=== PATIENT | female | born 1950 | race African-American/Black ===

== ENCOUNTER 2017-09-07 07:10 | Inpatient (IN) | payer OTHER ==
--- NOTE | 2017-09-07 07:32 | PDOC ---
History of Present Illness - General History Source: Patient <Tomas Mccallum - Last Filed: 09/07/17 10:23> - General History Source: Family, Old Records Exam Limitations: No Limitations - History of Present Illness Initial Comments: 09/07/17 13:54 The patient is a 67-year-old female living at [facility], with a significant past medical history of diabetes and stage 5 renal failure, who was sent to the ED by Dr. Barron for evaluation for worsening chronic kidney disease. Dr. Barron noted that the patient's creatnine was 10 and sent her over to the ED for dialysis and possible permcath placement. On exam, patients daughter states that she has been less active and has a decreased appetite recently. The patient was evaluated by wound care yesterday for an open wound on her left heel. The patient denies any fever, chills, nausea, vomiting, diarrhea, or abdominal pain. PCP: Dr. Rashad Charles Allergies: Penicillins Social History: Former smoker (quit 6 years ago). No reported alcohol, or drug use. Surgical History: Left Hip Surgery <Carine Dukes - Last Filed: 09/07/17 13:55> - General Chief Complaint: Revisit, Lab Variance Stated Complaint: ABNORMAL LABS Time Seen by Provider: 09/07/17 07:31 Past History - Past Medical History CVA: No (TIA) Diabetes: Yes - Surgical History Orthopedic Surgery: Yes (l hip) - Suicide/Smoking/Psychosocial Hx Smoking History: Former smoker Have you smoked in the past 12 months: No If you are a former smoker, when did you quit?: 6 YRS AGO <Tomas Mccallum - Last Filed: 09/07/17 10:23> <Carine Dukes - Last Filed: 09/07/17 13:55> - Past Medical History Allergies/Adverse Reactions: Allergies Allergy/AdvReac Type Severity Reaction Status Date / Time Penicillins Allergy Verified 09/07/17 07:27 Home Medications: Ambulatory Orders Unobtainable [Unobtainable] 09/05/17 Review of Systems - Review of Systems Able to Perform ROS?: Yes Comments:: 09/07/17 13:54 CONSTITUTIONAL: +general weakness No reported: Fever, Chills, Diaphoresis, Malaise, Loss of Appetite HEENT: No reported: Rhinorrhea, Nasal Congestion, Throat Pain, Throat Swelling, Difficulty Swallowing, Mouth Swelling, Ear Pain, Eye Pain, Visual Changes CARDIOVASCULAR: No reported: Chest Pain, Syncope, Palpitations, Irregular Heart Rate, Lightheadedness, Peripheral Edema RESPIRATORY: No reported: Cough, Shortness of Breath, SOB with Exertion, Orthopnea, Wheezing , Stridor, Hemoptysis GASTROINTESTINAL: No reported: Abdominal pain, Abdominal Distension, Nausea, Vomiting, Diarrhea, Constipation, Melena, Hematochezia GENITOURINARY: No reported: Dysuria, Frequency, Urgency, Hesitancy, Flank Pain, Genital Pain MUSCULOSKELETAL: No reported: Myalgia, Arthralgia, Joint Swelling, Back pain, Neck Pain SKIN: Reported: Wound on left heel. No reported: Rash, Itching, Pallor HEMEATOLOGIC/IMMUNOLOGIC: No reported: Easy Bleeding, Easy Bruising, Lymphadenopathy, Frequent infections ENDOCRINE: No reported: Unexplained Weight Gain, Unexplained Weight Loss, Heat Intolerance , Cold Intolerance NEUROLOGIC: No reported: Headache, Focal Weakness, Paresthesias, Vertigo, Lightheadedness, Unsteady Gait, Seizure, Mental Status Changes, Incontinence PSYCHIATRIC: No reported: Anxiety, Depression <Carine Dukes - Last Filed: 09/07/17 13:55> *Physical Exam - Vital Signs Last Vital Signs Temp Pulse Resp BP Pulse Ox 97.9 F 97 H 15 102/62 100 09/07/17 07:27 09/07/17 07:27 09/07/17 07:27 09/07/17 07:27 09/07/17 07:27 - Physical Exam Comments: 09/07/17 13:54 GENERAL: (+)Thin, Alert and Oriented x1. Nontoxic - in no acute distress. slow to respond HEAD: Normocephalic, atraumatic. EYES: extraocular movements intact, sclera anicteric, conjunctiva clear. ENT: Normal voice, Moist mucous membranes. NECK: Normal range of motion, supple LUNGS: (+)Scant rales at the bases. No wheezes, no rhonchi. HEART: Regular rate and rhythm, without murmur, rub or gallop. ABDOMEN: Soft, nontender, normoactive bowel sounds. No guarding, no rebound.No CVA tenderness EXTREMITIES: Normal range of motion, no edema. No clubbing or cyanosis. No cords, erythema, or tenderness. NEUROLOGICAL: No facial assymetry, Normal speech, PSYCH: Normal mood, normal affect. SKIN: (+)Has a left healed wound that is non-erythematous. Warm, Dry, normal turgor, <Carine Dukes - Last Filed: 09/07/17 13:55> Heart Score/ECG Review - ECG Impressions Comment:: 09/07/17 08:54 Twelve-lead EKG was performed and reviewed by me. There is normal sinus rhythm with a normal rate. Rate of 92 The intervals are normal. There are no ST or T wave abnormalities suggestive of acute ischemia <Tomas Mccallum - Last Filed: 09/07/17 10:23> ED Treatment Course - LABORATORY CBC & Chemistry Diagram: 09/07/17 07:58 09/07/17 07:58 <Tomas Mccallum - Last Filed: 09/07/17 10:23> - LABORATORY CBC & Chemistry Diagram: 09/07/17 07:58 09/07/17 07:58 - ADDITIONAL ORDERS Additional order review: Laboratory Results 09/07/17 09/07/17 08:00 07:58 PT with INR 10.10 INR 0.89 Antibody Screen Cancelled 09/07/17 07:58 RBC 3.55 L MCV 77.2 L MCHC 33.0 RDW 20.9 H MPV 7.2 L Neutrophils % 71.5 Lymphocytes % 15.9 Monocytes % 7.6 Eosinophils % 4.2 D Basophils % 0.8 - RADIOLOGY Radiology Studies Ordered: 09/07/17 08:56 Chest X-Ray was reviewed by Dr. Mccallum and over-read by Radiology. Impression: 4 mm hyperdense pulmonary nodule in the right lung apex likely representing a granuloma. However, since no prior is available for comparison, a follow-up chest x-ray in 6-12 months would be helpful for further evaluation. Otherwise, no acute lung disease is present - Medications Given in the ED: ED Medications Discontinued Medications Generic Name Dose Route Start Last Admin Trade Name Freq PRN Reason Stop Dose Admin Acetaminophen 650 mg 09/07/17 08:03 09/07/17 08:07 Tylenol - PO 09/07/17 08:04 650 mg ONCE ONE Administration <Carine Dukes - Last Filed: 09/07/17 13:55> Medical Decision Making - Medical Decision Making 09/07/17 08:23 67y F hx of htn, dm, hl, gerd, ckd, L heel wound, sent from [place] for evaluation of worsening CKD and posible permcath placement. Pts daughter mentioned the patient has been less active, less appetite recently. No associate fever/chills , n/v. history primarily provided from daugther and from [place] records. will ck labs, ekg to screen for hyperk will dw dr. barron. A portion of this note was documented by scribe services under my direction. I have reviewed the details of the note, within reason, and agree with the documentation with the following case summary and management plan written by me. 09/07/17 08:[address] barron - states pt cr is 10 requests admission and consult janeth dorantes 09/07/17 09:56 pts labs reviewed cr noted at 11, BUN at 141, probably explains pts mental status K is stable will send a VBG to screen for acidosis will need emergent dialysis will notify dr dorantes 09/07/17 10:[address] gaviria for percmath and access will admit for further management. 09/07/17 10:[address] giles agree with admissio nfor further managment Case discussed in detail with admitting physician including history, physical exam and ancillary studies. Admitting physician has assumed care for the patient, will follow all pending diagnostics and will complete the evaluation and treatment. <Tomas Mccallum - Last Filed: 09/07/17 10:23> *DC/Admit/Observation/Transfer - Discharge Dispostion Admit: Yes <Tomas Mccallum - Last Filed: 09/07/17 10:23> - Attestations Scribe Attestion: 09/07/17 08:57 Documentation prepared by Carine Dukes, acting as biomedical service engineer for Tomas Mccallum MD. <Carine Dukes - Last Filed: 09/07/17 13:55> Diagnosis at time of Disposition: Uremia Chronic kidney failure Qualifiers: Chronic kidney disease stage: unspecified stage Qualified Code(s): N18.9 - Chronic kidney disease, unspecified - Discharge Dispostion Condition at time of disposition: Guarded
[2017-09-07 07:36] VITALS: BMI 22.6
[2017-09-07] MEDS ORDERED: ACETAMINOPHEN 325 MG TABLET (FP) PO ONE (08:03)
[2017-09-07] MEDS ORDERED: ACETAMINOPHEN 325 MG TABLET (FP) ONE (08:04)
[2017-09-07 08:19] LABS: BASO % 0.8 % (0-2.0); EOS % 4.2 % (0-4.5); HEMATOCRIT 27.4 % (32.4-45.2); LYMPH % 15.9 % (8-40); MCH 25.5 pg (25.7-33.7); MEAN CELL VOLUME 77.2 fl (80-96); MEAN PLT VOLUME 7.2 fl (7.5-11.1); MONO % 7.6 % (3.8-10.2); NEUT % 71.5 % (42.8-82.8); PLATELET COUNT 204 K/MM3 (134-434); RBC 3.55 M/mm3 (3.60-5.2); RDW 20.9 % (11.6-15.6); WHITE BLOOD COUNT 6.9 K/mm3 (4.0-10.0)
[2017-09-07 08:32] LABS: INR 0.89 (0.82-1.09); PROTHROMBIN TIME (PATIENT) 10.1 SEC (9.98-11.88)
[2017-09-07 08:43] LABS: ANION GAP 9 (8-16); CALCIUM 8.8 mg/dL (8.5-10.1); CHLORIDE 117 mmol/L (98-107); CO2 12 mmol/L (21-32); MAGNESIUM 2.2 mg/dL (1.8-2.4); POTASSIUM 4.6 mmol/L (3.5-5.1); SODIUM 138 mmol/L (136-145)
[2017-09-07 08:56] LABS: ALK PHOS 103 U/L (45-117); BILIRUBIN,TOTAL 0.4 mg/dL (0.2-1.0); GLUCOSE,RANDOM 123 mg/dL (74-106); PHOSPHOROUS 6.4 mg/dL (2.5-4.9); SGOT/AST 16 U/L (15-37); SGPT/ALT 22 U/L (12-78); TOT PROT 6.4 g/dl (6.4-8.2)
[2017-09-07 09:07] LABS: BLOOD UREA NITROGEN 141 mg/dL (7-18); CREATININE 11.1 mg/dL (0.55-1.02)
[2017-09-07] MEDS ORDERED: morphine CARPU-JECT 2 MG/1 ML DISP.SYRIN IVPUSH ONE (10:18)
[2017-09-07] MEDS ORDERED: morphine SULFATE 4 MG/ML VIAL ONE (10:20)
[2017-09-07] MEDS ORDERED: ONDANSETRON 4 MG/2 ML VIAL IVPUSH PRN ×2 (10:48→19:00)
[2017-09-07] MEDS ORDERED: ACETAMINOPHEN 325 MG TABLET (FP) PO PRN ×2 (10:48→19:00)
[2017-09-07] MEDS ORDERED: INSULIN SLIDING SCALE (NOVOLOG) 1 VIAL SQ SCH (11:00)
--- NOTE | 2017-09-07 11:04 | HP ---
Admitting History and Physical - Primary Care Physician PCP: Rashad Charles - Admission Chief Complaint: Unable to obtain History of Present Illness: Ms Medina Monday is a 67 year old female who was sent in from [facility] for HD. Daughter at bedside and giving history. She states that in her normal state of health, Ms Medina Monday is able to converse and have appropriate conversations. Over the past two weeks has become less verbal and lethargic. Was being followed as an outpatient as has history of stage5 CKD, family at that time was holding off of HD. However patient currently non-verbal and was found to have a BUN in the 100s and was sent in for HD. 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 Cardiovascular: Yes: CAD, HTN, Other (endocarditis) Gastrointestinal: Yes: GERD Renal/: Yes: Renal Failure Heme/Onc: Yes: Anemia Endocrine: Yes: Diabetes Mellitus - Past Surgical History Past Surgical History: Yes: Joint Replacement - Smoking History Smoking history: Former smoker Have you smoked in the past 12 months: No If you are a former smoker, when did you quit?: 6 YRS AGO - Alcohol/Substance Use Hx Alcohol Use: No History of Substance Use: reports: None - Social History Usual Living Arrangement: Yes: [facility] ADL: Support Services History of Recent Travel: No Home Medications - Allergies Allergies/Adverse Reactions: Allergies Allergy/AdvReac Type Severity Reaction Status Date / Time Penicillins Allergy Verified 09/07/17 07:27 - Home Medications Home Medications: Ambulatory Orders Unobtainable [Unobtainable] 09/05/17 Home Medications (free text): Med list from [facility] reviewed and ordered, refer to order sets Family Disease History - Family Disease History Family Disease History: Diabetes: Mother Review of Systems Unable to obtain ROS, reason: clinical condition Physical Examination Vital Signs: Vital Signs Temperature 36.6 C 09/07/17 07:27 Pulse Rate 97 H 09/07/17 07:27 Respiratory Rate 15 09/07/17 07:27 Blood Pressure 102/62 09/07/17 07:27 O2 Sat by Pulse Oximetry (%) 100 09/07/17 07:27 Constitutional: Yes: Well Nourished, No Distress, Calm, Other (slightly lethargic) Eyes: Yes: Conjunctiva Clear, PERRL HENT: Yes: Atraumatic, Normocephalic Cardiovascular: Yes: Regular Rate and Rhythm. No: Gallop, Murmur, Rub Respiratory: Yes: Regular, CTA Bilaterally. No: Rales, Rhonchi, Wheezes Gastrointestinal: Yes: Normal Bowel Sounds, Soft. No: Distention, Tenderness Extremities: Yes: Other (ulcer on foot) Edema: No Labs: CBC, BMP 09/07/17 07:58 09/07/17 07:58 Imaging - Results Chest X-ray: Report Reviewed, Image Reviewed Problem List - Problems (1) ESRD (end stage renal disease) Assessment/Plan: -case d/w Dr Barron -admit to med/surg -permacath placement -begin HD after placement Code(s): N18.6 - END STAGE RENAL DISEASE (2) Metabolic encephalopathy Assessment/Plan: -secondary to uremia -monitor for improvement after HD Code(s): G93.41 - METABOLIC ENCEPHALOPATHY (3) HTN (hypertension) Assessment/Plan: -continue hydralazine, clonidine patch, labetolol, and norvasc Code(s): I10 - ESSENTIAL (PRIMARY) HYPERTENSION (4) Diabetes Assessment/Plan: -diabetic diet after catheter placement -continue januvia -FSBS and SSI Code(s): E11.9 - TYPE 2 DIABETES MELLITUS WITHOUT COMPLICATIONS (5) History of CVA (cerebrovascular accident) Assessment/Plan: -continue plavix Code(s): Z86.73 - PRSNL HX OF TIA (TIA), AND CEREB INFRC W/O RESID DEFICITS (6) CAD (coronary artery disease) Assessment/Plan: -quiescent -continue home regimen Code(s): I25.10 - ATHSCL HEART DISEASE OF [place] CORONARY ARTERY W/O ANG PCTRS (7) Anemia Assessment/Plan: -monitor -no need for transfusion -continue iron Code(s): D64.9 - ANEMIA, UNSPECIFIED Qualifiers: Anemia type: due to chronic kidney disease Chronic kidney disease stage: on chronic dialysis Qualified Code(s): N18.6 - End stage renal disease; D63.1 - Anemia in chronic kidney disease; D63.1 - Anemia in chronic kidney disease; Z99.2 - Dependence on renal dialysis; Z99.2 - Dependence on renal dialysis; Z99.2 - Dependence on renal dialysis; Z99.2 - Dependence on renal dialysis (8) History of endocarditis Assessment/Plan: -will check blood cultures Code(s): Z86.79 - PERSONAL HISTORY OF OTHER DISEASES OF THE CIRCULATORY SYSTEM
--- NOTE | 2017-09-07 11:11 | EKG ---
Test Reason : Blood Pressure : / mmHG Vent. Rate : 092 BPM Atrial Rate : 092 BPM P-R Int : 158 ms QRS Dur : 088 ms QT Int : 368 ms P-R-T Axes : 075 -17 079 degrees QTc Int : 455 ms NORMAL SINUS RHYTHM SEPTAL INFARCT , AGE UNDETERMINED ABNORMAL ECG NO PREVIOUS ECGS AVAILABLE Confirmed by MADDY CRISTOBAL, ANA MARIA ([id number]) on 09/07/2017 11:11:10 AM Referred By: Confirmed By:ANA MARIA CASTAÑEDA MD
[2017-09-07 12:50] LABS: ARTERIAL BLD GAS O2 SATURATION 96.6 % (90-98.9); ARTERIAL BLOOD GAS BASE EXCESS -12.4 meq/l (-2-2); ARTERIAL BLOOD GAS PCO2 30.8 mmHg (35-45); ARTERIAL BLOOD GAS PO2 92.6 mmHg (80-100); ARTERIAL BLOOD GAS pH 7.26 (7.35-7.45)
[2017-09-07 12:53] LABS: ALLENS TEST POSITIVE
[2017-09-07] MEDS ORDERED: LIDOCAINE HCL 1%, 10 MG/ML (20ML VIAL) ONE (14:21)
--- NOTE | 2017-09-07 15:23 | CONSULT ---
Consult Consult Specialty:: Nephrology Reason for Consultation:: CKD - History of Present Illness Chief Complaint: sent in for HD History of Present Illness: Pt is a 67 year old female with pmhx of CKD, TIA, anemia, UTI and DM who I sent in to the ER to start HD. She has history of CKD and her renal function has been getting worse. She did see me in the office on several occasions and we discussed HD. She denies shortness of breath. She does have decreased appetite and has been increasingly tired lately. She denies fevers or chills. She denies chest pain or palpitations. 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 Cardio/Vascular: Yes: HTN Renal/: Yes: Renal Inusuff Infectious Disease: Yes: Other (uti) - Alcohol/Substance Use Hx Alcohol Use: No - Smoking History Smoking history: Former smoker Have you smoked in the past 12 months: No If you are a former smoker, when did you quit?: 6 YRS AGO Home Medications - Allergies Allergies/Adverse Reactions: Allergies Allergy/AdvReac Type Severity Reaction Status Date / Time Penicillins Allergy Verified 09/07/17 07:27 - Home Medications Home Medications: Ambulatory Orders Unobtainable [Unobtainable] 09/05/17 Family Disease History - Family Disease History Family History: Denies Review of Systems - Review of Systems Constitutional: reports: Malaise. denies: Chills, Fever Eyes: reports: No Symptoms HENT: reports: No Symptoms Neck: reports: No Symptoms Cardiovascular: reports: No Symptoms Respiratory: reports: No Symptoms Gastrointestinal: reports: No Symptoms Genitourinary: reports: No Symptoms Integumentary: reports: No Symptoms Neurological: reports: No Symptoms Endocrine: reports: No Symptoms Hematology/Lymphatic: reports: No Symptoms Psychiatric: reports: No Symptoms Physical Exam Vital Signs: Vital Signs Temperature 97.9 F 09/07/17 13:50 Pulse Rate 92 H 09/07/17 13:50 Respiratory Rate 18 09/07/17 13:50 Blood Pressure 140/71 09/07/17 13:50 O2 Sat by Pulse Oximetry (%) 100 09/07/17 13:50 Constitutional: Yes: Calm Eyes: Yes: Conjunctiva Clear HENT: Yes: Atraumatic Cardiovascular: Yes: S1, S2 Respiratory: Yes: CTA Bilaterally Gastrointestinal: Yes: Soft Renal/: Yes: Incontinence Musculoskeletal: Yes: Muscle Weakness Edema: No Neurological: Yes: Other (drowsy) Labs: CBC, BMP 09/07/17 07:58 09/07/17 07:58 Laboratory Tests 09/07/17 09/07/17 09/07/17 07:58 07:58 12:35 WBC 6.9 Hgb 9.0 L Plt Count 204 ABG pH 7.26 L ABG pCO2 at Pt Temp 30.8 L ABG pO2 at Pt Temp 92.6 ABG HCO3 13.3 L* ABG O2 Sat (Measured) 96.6 Sodium 138 Potassium 4.6 Chloride 117 H Carbon Dioxide 12 L Anion Gap 9 BUN 141 H* Creatinine 11.1 H* Creat Clearance w eGFR 3.44 Phosphorus 6.4 H Imaging - Results Chest X-ray: Report Reviewed Problem List - Problems (1) Chronic kidney failure Code(s): N18.9 - CHRONIC KIDNEY DISEASE, UNSPECIFIED Qualifiers: Chronic kidney disease stage: unspecified stage Qualified Code(s): N18.9 - Chronic kidney disease, unspecified (2) Uremia Code(s): N19 - UNSPECIFIED KIDNEY FAILURE Assessment/Plan Current Medications Generic Name Dose Route Start Last Admin Trade Name Freq PRN Reason Stop Dose Admin Acetaminophen 650 mg 09/07/17 10:48 Tylenol - PO Q4H PRN PAIN LEVEL 1-5 Amlodipine Besylate 10 mg 09/08/17 10:00 Norvasc - PO DAILY [facility] Ascorbic Acid 500 mg 09/07/17 22:00 Vitamin C - PO BID [facility] Atorvastatin Calcium 20 mg 09/07/17 22:00 Lipitor - PO HS RY Clonidine HCl 0.2 mg 09/14/17 10:00 Catapres Tts Patch - TD Q7D@1000 RY Clopidogrel Bisulfate 75 mg 09/08/17 10:00 Plavix - PO DAILY RY Cyanocobalamin 1,000 mcg 09/08/17 10:00 Vitamin B12 - PO DAILY RY Donepezil HCl 5 mg 09/07/17 22:00 Aricept - PO BID RY Ferrous Sulfate 325 mg 09/07/17 17:30 Feosol - PO BIDWM RY Fluticasone Propionate 2 spray 09/08/17 10:00 Flonase - NS DAILY RY Folic Acid 1 mg 09/08/17 10:00 Folic Acid - PO DAILY [facility] Heparin Sodium (Porcine) 5,000 unit 09/07/17 22:00 Heparin - SQ BID [facility] Hydralazine HCl 50 mg 09/07/17 22:00 Apresoline - PO TID [facility] Insulin Aspart 1 vial 09/07/17 11:00 09/07/17 12:11 Novolog Vial Sliding Scale - SQ Not Given ACHS [facility] Protocol Labetalol HCl 400 mg 09/07/17 22:00 Normodyne - PO TID [facility] Multivit/Ca Carb/B Cmplx/FA/Prenat 1 tablet 09/08/17 10:00 Nephro-Don - PO DAILY [facility] Ondansetron HCl 4 mg 09/07/17 10:48 Zofran Injection IVPUSH Q6H PRN NAUSEA Sitagliptin Phosphate 50 mg 09/08/17 07:00 Januvia - PO DAILY@0700 [facility] Impression 1. CKD 2. uremia 3. anemia 4. HTN 5. HLD 6. DM 7. hx endocarditis 8. GERD Plan - called vascular for permacath - pt will also need an AV fistula - can get vein mapping - will arrange for HD after permacath, likely tomorrow morning - will follow Dr Barron
[2017-09-07] MEDS ORDERED: SODIUM CHLORIDE 250 ML IV PRN ×2 (15:40→19:00)
[2017-09-07] MEDS ORDERED: FERROUS SO4 325 MG TABLET (FP) PO SCH (17:30)
[2017-09-07] MEDS ORDERED: MIDAZOLAM HCL 2 MG/2 ML SINGLE DOSE VIAL ONE (18:05)
[2017-09-07] MEDS ORDERED: CLINDAMYCIN PHOSPHATE 600 MG/4 ML VIAL ONE (18:11)
[2017-09-07] MEDS ORDERED: CLINDAMYCIN 300 MG PREMIX BAG IVPB ONE (18:14)
[2017-09-07] MEDS ORDERED: LIDOCAINE HCL 1%, 10 MG/ML (20ML VIAL) PNB ONE ×2 (18:14→18:18)
--- NOTE | 2017-09-07 18:37 | OP ---
Operative Note - Note: Operative Date: 09/07/17 Pre-Operative Diagnosis: ESRD Operation: Placement Permacath Findings: Patent left IJ Implants: 23 cm Permacath Post-Operative Diagnosis: Same as Pre-op Surgeon: Buck Crane Anesthesiologist/TUMBLER DYEING MACHINE OPERATOR: Migule Hua Anesthesia: Fractional
--- NOTE | 2017-09-07 18:39 | CONSULT ---
Consult - History of Present Illness History of Present Illness: 67 year old woman with CKD 5 who now needs to start dialysis. She was evaluated in the past for AV access but family decided to wait. She is left handed. 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 Cardio/Vascular: Yes: CAD, HTN, Other (endocarditis) Gastrointestinal: Yes: GERD Renal/: Yes: Renal Failure Infectious Disease: Yes: Other (uti) Endocrine: Yes: Diabetes Mellitus - Past Surgical History Past Surgical History: Yes: Joint Replacement - Alcohol/Substance Use Hx Alcohol Use: No History of Substance Use: reports: None - Smoking History Smoking history: Former smoker Have you smoked in the past 12 months: No If you are a former smoker, when did you quit?: 6 YRS AGO - Social History ADL: Support Services History of Recent Travel: No Home Medications - Allergies Allergies/Adverse Reactions: Allergies Allergy/AdvReac Type Severity Reaction Status Date / Time Penicillins Allergy Verified 09/07/17 07:27 - Home Medications Home Medications: Ambulatory Orders Unobtainable [Unobtainable] 09/05/17 Family Disease History - Family Disease History Family Disease History: Diabetes: Mother Physical Exam Vital Signs: Vital Signs Temperature 97.9 F 09/07/17 13:50 Pulse Rate 92 H 09/07/17 13:50 Respiratory Rate 18 09/07/17 13:50 Blood Pressure 140/71 09/07/17 13:50 O2 Sat by Pulse Oximetry (%) 100 09/07/17 13:50 Constitutional: Yes: Calm Eyes: Yes: WNL HENT: Yes: WNL Neck: Yes: Supple Cardiovascular: Yes: Regular Rate and Rhythm Respiratory: Yes: Regular Gastrointestinal: Yes: Soft Extremities: Yes: Other (No visible vein in arm) Edema: No Labs: CBC, BMP 09/07/17 07:58 09/07/17 07:58 Problem List - Problems (1) Chronic kidney failure Assessment/Plan: Will place Permacath today. Plan for AV access in right arm next week. Code(s): N18.9 - CHRONIC KIDNEY DISEASE, UNSPECIFIED Qualifiers: Chronic kidney disease stage: unspecified stage Qualified Code(s): N18.9 - Chronic kidney disease, unspecified
--- NOTE | 2017-09-07 19:51 | SPEC ---
DATE OF OPERATION: OPERATION: Insertion of left-sided Perma-Cath placement PREOPERATIVE DIAGNOSIS: POSTOPERATIVE DIAGNOSIS: SURGEON: Jose Sandra M.D. ANESTHESIOLOGIST: Miguel Hua D.O. ANESTHESIA: Fractional PROCEDURE: Following intravenous sedation, the patient was placed in the Trendelenburg position. The neck and chest were prepped with Betadine solution. 1% Xylocaine was infiltrated subcutaneously in the neck and the internal jugular vein cannulated with a fine needle. A fine flexible wire was passed proximally under fluoroscopic guidance into the superior vena cava. The tract around the wire was dilated and the wire was exchanged for a larger diameter wire. Additional Xylocaine was infiltrated on the chest wall and a stab wound made beneath the clavicle. With the aid of a tunneler, the catheter was passed from chest to neck to exit next the wire. The tract around the wire was again dilated and the introducer placed into the superior vena cava. The wire and the dilator were removed. The Perma-Cath was then passed through the introducer and the tips positioned in the right atrium. The introducer was peeled away, leaving the catheter in place. Each lumen was aspirated for blood and flushed with saline and Heparin solution. The neck wound was closed with a subcuticular suture of 4-0 Vicryl and the catheter was sutured to the skin at the exit site with 3-0 Nylon. Sterile dressings were applied and the patient was taken to the recovery room for a chest x-ray. JOSE SANDRA M.D. [id number]
[2017-09-07] MEDS: ATORVASTATIN CA 20 MG TABLET (FP) PO SCH (21:29)
[2017-09-07] MEDS: ASCORBIC ACID 500 MG TABLET (FP) PO SCH (21:29)
[2017-09-07] MEDS: DONEPEZIL HCL 5 MG TABLET (FP) PO SCH (21:29)
[2017-09-07] MEDS: hydrALAZINE HCL 50 MG TABLET (FP) PO SCH (21:29)
[2017-09-07] MEDS: HEPARIN NA (PORCINE) 5,000 UNITS/ML 1ML VIAL SQ SCH (21:29)
[2017-09-07] MEDS: LABETALOL HCL 200 MG TABLET (FP) PO SCH (21:30)
[2017-09-07] MEDS: INSULIN SLIDING SCALE (NOVOLOG) 1 VIAL SQ SCH (21:30)
[2017-09-07] MEDS ORDERED: HEPARIN NA (PORCINE) 5,000 UNITS/ML 1ML VIAL SQ SCH (22:00)
[2017-09-07] MEDS ORDERED: ASCORBIC ACID 500 MG TABLET (FP) PO SCH (22:00)
[2017-09-07] MEDS ORDERED: DONEPEZIL HCL 5 MG TABLET (FP) PO SCH (22:00)
[2017-09-07] MEDS ORDERED: ATORVASTATIN CA 20 MG TABLET (FP) PO SCH (22:00)
[2017-09-07] MEDS ORDERED: hydrALAZINE HCL 50 MG TABLET (FP) PO SCH (22:00)
[2017-09-07] MEDS ORDERED: LABETALOL HCL 200 MG TABLET (FP) PO SCH (22:00)
[2017-09-08] MEDS: INSULIN SLIDING SCALE (NOVOLOG) 1 VIAL SQ SCH ×4 (06:12→21:14)
[2017-09-08] MEDS: sitaGLIPtin PHOSPHATE 25 MG TABLET (FP) PO SCH (06:13)
[2017-09-08] MEDS: LABETALOL HCL 200 MG TABLET (FP) PO SCH ×3 (06:13→21:08)
[2017-09-08] MEDS: hydrALAZINE HCL 50 MG TABLET (FP) PO SCH ×3 (06:13→21:08)
[2017-09-08] MEDS ORDERED: sitaGLIPtin PHOSPHATE 25 MG TABLET (FP) PO SCH (07:00)
[2017-09-08 07:55] LABS: BASO % 0.6 % (0-2.0); EOS % 3.4 % (0-4.5); HEMATOCRIT 26.3 % (32.4-45.2); HEMOGLOBIN 8.7 GM/dL (10.7-15.3); LYMPH % 15.4 % (8-40); MCH 25.5 pg (25.7-33.7); MCHC 33.1 g/dl (32.0-36.0); MEAN CELL VOLUME 77.1 fl (80-96); MEAN PLT VOLUME 7.2 fl (7.5-11.1); MONO % 6.7 % (3.8-10.2); NEUT % 73.9 % (42.8-82.8); PLATELET COUNT 192 K/MM3 (134-434); RBC 3.41 M/mm3 (3.60-5.2); RDW 20.9 % (11.6-15.6); WHITE BLOOD COUNT 6.9 K/mm3 (4.0-10.0)
[2017-09-08 08:55] LABS: CHLORIDE 118 mmol/L (98-107); POTASSIUM 4.8 mmol/L (3.5-5.1); SODIUM 138 mmol/L (136-145)
[2017-09-08 09:13] LABS: ANION GAP 8 (8-16); CALCIUM 8.6 mg/dL (8.5-10.1); CO2 12 mmol/L (21-32); GLUCOSE,RANDOM 84 mg/dL (74-106); MAGNESIUM 2.4 mg/dL (1.8-2.4); PHOSPHOROUS 6.8 mg/dL (2.5-4.9)
[2017-09-08] MEDS: FERROUS SO4 325 MG TABLET (FP) PO SCH ×2 (09:13→18:00)
[2017-09-08 09:52] LABS: BLOOD UREA NITROGEN 137 mg/dL (7-18); CREATININE 11.7 mg/dL (0.55-1.02)
[2017-09-08] MEDS ORDERED: amLODIPine BESYLATE 10 MG TABLET (FP) PO SCH (10:00)
[2017-09-08] MEDS ORDERED: FOLIC ACID 1 MG TABLET (FP) PO SCH (10:00)
[2017-09-08] MEDS ORDERED: CYANOCOBALAMIN 1,000 MCG TABLET (FP) PO SCH (10:00)
[2017-09-08] MEDS ORDERED: FLUTICASONE PROP 0.05% 16 GM NASAL SPRAY NS SCH (10:00)
[2017-09-08] MEDS ORDERED: VITAMIN B COMP W-C 1 EA TABLET PO SCH (10:00)
[2017-09-08] MEDS ORDERED: CLOPIDOGREL BISULFATE 75 MG TABLET (FP) PO SCH (10:00)
[2017-09-08] MEDS ORDERED: SODIUM CHLORIDE 250 ML IV SCH (12:00)
[2017-09-08] MEDS: amLODIPine BESYLATE 10 MG TABLET (FP) PO SCH (12:01)
[2017-09-08] MEDS: FOLIC ACID 1 MG TABLET (FP) PO SCH (12:01)
[2017-09-08] MEDS: CLOPIDOGREL BISULFATE 75 MG TABLET (FP) PO SCH (12:02)
[2017-09-08] MEDS: CYANOCOBALAMIN 1,000 MCG TABLET (FP) PO SCH (12:02)
[2017-09-08] MEDS: ASCORBIC ACID 500 MG TABLET (FP) PO SCH ×2 (12:02→21:09)
[2017-09-08] MEDS: VITAMIN B COMP W-C 1 EA TABLET PO SCH (12:02)
[2017-09-08] MEDS: DONEPEZIL HCL 5 MG TABLET (FP) PO SCH ×2 (12:02→21:08)
[2017-09-08] MEDS: HEPARIN NA (PORCINE) 5,000 UNITS/ML 1ML VIAL SQ SCH ×2 (12:03→21:15)
[2017-09-08] MEDS: FLUTICASONE PROP 0.05% 16 GM NASAL SPRAY NS SCH (12:03)
--- NOTE | 2017-09-08 13:11 | PN ---
Progress Note, Physician Chief Complaint: Ms Medina Monday is without complaint. No cp, sob, n/v. - Current Medication List Current Medications: Active Medications Acetaminophen (Tylenol -) 650 mg PO Q4H PRN PRN Reason: PAIN LEVEL 1-5 Amlodipine Besylate (Norvasc -) 10 mg PO DAILY [facility] Last Admin: 09/08/17 12:01 Dose: 10 mg Ascorbic Acid (Vitamin C -) 500 mg PO BID [facility] Last Admin: 09/08/17 12:02 Dose: 500 mg Atorvastatin Calcium (Lipitor -) 20 mg PO HS [facility] Last Admin: 09/07/17 21:29 Dose: 20 mg Clonidine HCl (Catapres Tts Patch -) 0.2 mg TD Q7D@1000 [facility] Clopidogrel Bisulfate (Plavix -) 75 mg PO DAILY [facility] Last Admin: 09/08/17 12:02 Dose: 75 mg Cyanocobalamin (Vitamin B12 -) 1,000 mcg PO DAILY [facility] Last Admin: 09/08/17 12:02 Dose: 1,000 mcg Donepezil HCl (Aricept -) 5 mg PO BID [facility] Last Admin: 09/08/17 12:02 Dose: 5 mg Ferrous Sulfate (Feosol -) 325 mg PO BIDWM [facility] Last Admin: 09/08/17 09:13 Dose: Not Given Fluticasone Propionate (Flonase -) 2 spray NS DAILY [facility] Last Admin: 09/08/17 12:03 Dose: Not Given Folic Acid (Folic Acid -) 1 mg PO DAILY [facility] Last Admin: 09/08/17 12:01 Dose: 1 mg Heparin Sodium (Porcine) (Heparin -) 5,000 unit SQ BID [facility] Last Admin: 09/08/17 12:03 Dose: 5,000 unit Hydralazine HCl (Apresoline -) 50 mg PO TID [facility] Last Admin: 09/08/17 06:13 Dose: 50 mg Sodium Chloride (Normal Saline -) 250 mls @ 3,000 mls/hr IV PRN PRN PRN Reason: Hypotension during Dialysis Stop: 09/08/17 15:40 Insulin Aspart (Novolog Vial Sliding Scale -) 1 vial SQ ACHS [facility] PRN Reason: Protocol Last Admin: 09/08/17 12:02 Dose: Not Given Labetalol HCl (Normodyne -) 400 mg PO TID [facility] Last Admin: 09/08/17 06:13 Dose: 400 mg Multivit/Ca Carb/B Cmplx/FA/Prenat (Nephro-Don -) 1 tablet PO DAILY [facility] Last Admin: 09/08/17 12:02 Dose: 1 tablet Ondansetron HCl (Zofran Injection) 4 mg IVPUSH Q6H PRN PRN Reason: NAUSEA Sitagliptin Phosphate (Januvia -) 25 mg PO DAILY@0700 [facility] Last Admin: 09/08/17 06:13 Dose: 25 mg - Objective Vital Signs: Vital Signs Temperature 36.4 C L 09/08/17 07:55 Pulse Rate 110 H 09/08/17 11:22 Respiratory Rate 20 09/08/17 10:36 Blood Pressure 107/67 09/08/17 10:36 O2 Sat by Pulse Oximetry (%) 95 09/07/17 21:00 Constitutional: Yes: Well Nourished, No Distress, Calm Cardiovascular: Yes: Regular Rate and Rhythm. No: Gallop, Murmur, Rub Respiratory: Yes: Regular, CTA Bilaterally. No: Rales, Rhonchi, Wheezes Gastrointestinal: Yes: Normal Bowel Sounds, Soft. No: Distention, Tenderness Extremities: Yes: WNL Edema: No Labs: CBC, BMP 09/08/17 06:30 09/08/17 07:00 INR, PTT INR 0.89 (0.82-1.09) 09/07/17 07:58 Problem List - Problems (1) ESRD (end stage renal disease) Code(s): N18.6 - END STAGE RENAL DISEASE (2) Metabolic encephalopathy Code(s): G93.41 - METABOLIC ENCEPHALOPATHY (3) HTN (hypertension) Code(s): I10 - ESSENTIAL (PRIMARY) HYPERTENSION (4) Diabetes Code(s): E11.9 - TYPE 2 DIABETES MELLITUS WITHOUT COMPLICATIONS (5) History of CVA (cerebrovascular accident) Code(s): Z86.73 - PRSNL HX OF TIA (TIA), AND CEREB INFRC W/O RESID DEFICITS (6) CAD (coronary artery disease) Code(s): I25.10 - ATHSCL HEART DISEASE OF [place] CORONARY ARTERY W/O ANG PCTRS (7) Anemia Code(s): D64.9 - ANEMIA, UNSPECIFIED Qualifiers: Anemia type: due to chronic kidney disease Chronic kidney disease stage: on chronic dialysis Qualified Code(s): N18.6 - End stage renal disease; D63.1 - Anemia in chronic kidney disease; D63.1 - Anemia in chronic kidney disease; Z99.2 - Dependence on renal dialysis; Z99.2 - Dependence on renal dialysis; Z99.2 - Dependence on renal dialysis; Z99.2 - Dependence on renal dialysis (8) History of endocarditis Code(s): Z86.79 - PERSONAL HISTORY OF OTHER DISEASES OF THE CIRCULATORY SYSTEM Assessment/Plan (1) ESRD (end stage renal disease) Assessment/Plan: -case d/w Dr Barron -s/p HD and tolerated well -Dr Barron to set up outpatient HD Code(s): N18.6 - END STAGE RENAL DISEASE (2) Metabolic encephalopathy Assessment/Plan: -secondary to uremia -improved today after HD Code(s): G93.41 - METABOLIC ENCEPHALOPATHY (3) HTN (hypertension) Assessment/Plan: -continue hydralazine, clonidine patch, labetolol, and norvasc -may need to de-escalate secondary to starting HD Code(s): I10 - ESSENTIAL (PRIMARY) HYPERTENSION (4) Diabetes Assessment/Plan: -diabetic diet after catheter placement -continue januvia, renally dosed -FSBS and SSI Code(s): E11.9 - TYPE 2 DIABETES MELLITUS WITHOUT COMPLICATIONS (5) History of CVA (cerebrovascular accident) Assessment/Plan: -continue plavix Code(s): Z86.73 - PRSNL HX OF TIA (TIA), AND CEREB INFRC W/O RESID DEFICITS (6) CAD (coronary artery disease) Assessment/Plan: -quiescent -continue home regimen Code(s): I25.10 - ATHSCL HEART DISEASE OF [place] CORONARY ARTERY W/O ANG PCTRS (7) Anemia Assessment/Plan: -monitor -no need for transfusion -continue iron Code(s): D64.9 - ANEMIA, UNSPECIFIED Qualifiers: Anemia type: due to chronic kidney disease Chronic kidney disease stage: on chronic dialysis Qualified Code(s): N18.6 - End stage renal disease; D63.1 - Anemia in chronic kidney disease; D63.1 - Anemia in chronic kidney disease; Z99.2 - Dependence on renal dialysis; Z99.2 - Dependence on renal dialysis; Z99.2 - Dependence on renal dialysis; Z99.2 - Dependence on renal dialysis (8) History of endocarditis Assessment/Plan: -will check blood cultures, currently [facility] Code(s): Z86.79 - PERSONAL HISTORY OF OTHER DISEASES OF THE CIRCULATORY SYSTEM
[2017-09-08] MEDS ORDERED: SODIUM CHLORIDE 250 ML IV PRN (15:47)
--- NOTE | 2017-09-08 15:47 | PN ---
Progress Note, Physician History of Present Illness: Pt seen and examined at bedside. She tolerated HD today. She is awake and appears comfortable. - Current Medication List Current Medications: Active Medications Acetaminophen (Tylenol -) 650 mg PO Q4H PRN PRN Reason: PAIN LEVEL 1-5 Amlodipine Besylate (Norvasc -) 10 mg PO DAILY [facility] Last Admin: 09/08/17 12:01 Dose: 10 mg Ascorbic Acid (Vitamin C -) 500 mg PO BID [facility] Last Admin: 09/08/17 12:02 Dose: 500 mg Atorvastatin Calcium (Lipitor -) 20 mg PO HS [facility] Last Admin: 09/07/17 21:29 Dose: 20 mg Clonidine HCl (Catapres Tts Patch -) 0.2 mg TD Q7D@1000 [facility] Clopidogrel Bisulfate (Plavix -) 75 mg PO DAILY [facility] Last Admin: 09/08/17 12:02 Dose: 75 mg Cyanocobalamin (Vitamin B12 -) 1,000 mcg PO DAILY [facility] Last Admin: 09/08/17 12:02 Dose: 1,000 mcg Donepezil HCl (Aricept -) 5 mg PO BID [facility] Last Admin: 09/08/17 12:02 Dose: 5 mg Ferrous Sulfate (Feosol -) 325 mg PO BIDWM [facility] Last Admin: 09/08/17 09:13 Dose: Not Given Fluticasone Propionate (Flonase -) 2 spray NS DAILY [facility] Last Admin: 09/08/17 12:03 Dose: Not Given Folic Acid (Folic Acid -) 1 mg PO DAILY [facility] Last Admin: 09/08/17 12:01 Dose: 1 mg Heparin Sodium (Porcine) (Heparin -) 5,000 unit SQ BID [facility] Last Admin: 09/08/17 12:03 Dose: 5,000 unit Hydralazine HCl (Apresoline -) 50 mg PO TID [facility] Last Admin: 09/08/17 06:13 Dose: 50 mg Insulin Aspart (Novolog Vial Sliding Scale -) 1 vial SQ ACHS [facility] PRN Reason: Protocol Last Admin: 09/08/17 12:02 Dose: Not Given Labetalol HCl (Normodyne -) 400 mg PO TID [facility] Last Admin: 09/08/17 06:13 Dose: 400 mg Multivit/Ca Carb/B Cmplx/FA/Prenat (Nephro-Don -) 1 tablet PO DAILY [facility] Last Admin: 09/08/17 12:02 Dose: 1 tablet Ondansetron HCl (Zofran Injection) 4 mg IVPUSH Q6H PRN PRN Reason: NAUSEA Sitagliptin Phosphate (Januvia -) 25 mg PO DAILY@0700 [facility] Last Admin: 09/08/17 06:13 Dose: 25 mg - Objective Vital Signs: Vital Signs Temperature 98.2 F 09/08/17 13:09 Pulse Rate 111 H 09/08/17 13:49 Respiratory Rate 18 09/08/17 13:09 Blood Pressure 103/62 09/08/17 13:09 O2 Sat by Pulse Oximetry (%) 100 09/08/17 09:00 Constitutional: Yes: Calm Eyes: Yes: Conjunctiva Clear HENT: Yes: Atraumatic Cardiovascular: Yes: S1, S2 Respiratory: Yes: CTA Bilaterally Gastrointestinal: Yes: Normal Bowel Sounds, Soft Genitourinary: Yes: Incontinence Musculoskeletal: Yes: WNL Edema: No Neurological: Yes: Oriented Psychiatric: Yes: Oriented Labs: CBC, BMP 09/08/17 06:30 09/08/17 07:00 INR, PTT INR 0.89 (0.82-1.09) 09/07/17 07:58 - ....Imaging Chest X-ray: Report Reviewed Problem List - Problems (1) Chronic kidney failure Code(s): N18.9 - CHRONIC KIDNEY DISEASE, UNSPECIFIED Qualifiers: Chronic kidney disease stage: unspecified stage Qualified Code(s): N18.9 - Chronic kidney disease, unspecified (2) Uremia Code(s): N19 - UNSPECIFIED KIDNEY FAILURE Assessment/Plan Current Medications Generic Name Dose Route Start Last Admin Trade Name Freq PRN Reason Stop Dose Admin Acetaminophen 650 mg 09/07/17 19:00 Tylenol - PO Q4H PRN PAIN LEVEL 1-5 Amlodipine Besylate 10 mg 09/08/17 10:00 09/08/17 12:01 Norvasc - PO 10 mg DAILY [facility] Administration Ascorbic Acid 500 mg 09/07/17 22:00 09/08/17 12:02 Vitamin C - PO 500 mg BID [facility] Administration Atorvastatin Calcium 20 mg 09/07/17 22:00 09/07/17 21:29 Lipitor - PO 20 mg HS [facility] Administration Clonidine HCl 0.2 mg 09/14/17 10:00 Catapres Tts Patch - TD Q7D@1000 [facility] Clopidogrel Bisulfate 75 mg 09/08/17 10:00 09/08/17 12:02 Plavix - PO 75 mg DAILY [facility] Administration Cyanocobalamin 1,000 mcg 09/08/17 10:00 09/08/17 12:02 Vitamin B12 - PO 1,000 mcg DAILY [facility] Administration Donepezil HCl 5 mg 09/07/17 22:00 09/08/17 12:02 Aricept - PO 5 mg BID [facility] Administration Ferrous Sulfate 325 mg 09/08/17 08:00 09/08/17 09:13 Feosol - PO Not Given BIDWM [facility] Fluticasone Propionate 2 spray 09/08/17 10:00 09/08/17 12:03 Flonase - NS Not Given DAILY [facility] Folic Acid 1 mg 09/08/17 10:00 09/08/17 12:01 Folic Acid - PO 1 mg DAILY [facility] Administration Heparin Sodium (Porcine) 5,000 unit 09/07/17 22:00 09/08/17 12:03 Heparin - SQ 5,000 unit BID [facility] Administration Hydralazine HCl 50 mg 09/07/17 22:00 09/08/17 06:13 Apresoline - PO 50 mg TID [facility] Administration Insulin Aspart 1 vial 09/07/17 22:00 09/08/17 12:02 Novolog Vial Sliding Scale - SQ Not Given ACHS [facility] Protocol Labetalol HCl 400 mg 09/07/17 22:00 09/08/17 06:13 Normodyne - PO 400 mg TID [facility] Administration Multivit/Ca Carb/B Cmplx/FA/Prenat 1 tablet 09/08/17 10:00 09/08/17 12:02 Nephro-Don - PO 1 tablet DAILY [facility] Administration Ondansetron HCl 4 mg 09/07/17 19:00 Zofran Injection IVPUSH Q6H PRN NAUSEA Sitagliptin Phosphate 25 mg 09/08/17 07:00 09/08/17 06:13 Januvia - PO 25 mg DAILY@0700 [facility] Administration Impression 1. CKD 2. uremia 3. anemia 4. HTN 5. HLD 6. DM 7. hx endocarditis 8. GERD Plan - pt tolerated HD - had permacath done yesterday - will need av fistula - will arrange for HD again tomorrow - check labs in am - gave 250 cc of ns post HD today - will not take off volume tomorrow - encourage PO intake - will follow Dr Barron
[2017-09-08] MEDS: SEVELAMER CARBONATE 800 MG TAB (FP) PO SCH (18:00)
[2017-09-08] MEDS ORDERED: INSULIN (NOVOLOG) ASPART 100 UNITS/ML 10ML VIAL ONE (20:33)
[2017-09-08] MEDS: ATORVASTATIN CA 20 MG TABLET (FP) PO SCH (21:08)
[2017-09-09] MEDS: LABETALOL HCL 200 MG TABLET (FP) PO SCH ×3 (05:26→21:07)
[2017-09-09] MEDS: hydrALAZINE HCL 50 MG TABLET (FP) PO SCH ×3 (05:26→21:07)
[2017-09-09] MEDS: sitaGLIPtin PHOSPHATE 25 MG TABLET (FP) PO SCH (06:22)
[2017-09-09] MEDS: INSULIN SLIDING SCALE (NOVOLOG) 1 VIAL SQ SCH ×4 (06:22→21:08)
[2017-09-09 07:51] LABS: BASO % 0.7 % (0-2.0); EOS % 3.7 % (0-4.5); LYMPH % 18.5 % (8-40); MCH 25.5 pg (25.7-33.7); MCHC 33.4 g/dl (32.0-36.0); MEAN CELL VOLUME 76.3 fl (80-96); MEAN PLT VOLUME 7.1 fl (7.5-11.1); MONO % 9.9 % (3.8-10.2); NEUT % 67.2 % (42.8-82.8); PLATELET COUNT 192 K/MM3 (134-434); RBC 3.15 M/mm3 (3.60-5.2); RDW 21.1 % (11.6-15.6); WHITE BLOOD COUNT 5.8 K/mm3 (4.0-10.0)
[2017-09-09 08:13] LABS: ANION GAP 5 (8-16); BLOOD UREA NITROGEN 73 mg/dL (7-18); CALCIUM 8.1 mg/dL (8.5-10.1); CHLORIDE 113 mmol/L (98-107); CO2 24 mmol/L (21-32); CREATININE 7.1 mg/dL (0.55-1.02); GLUCOSE,RANDOM 81 mg/dL (74-106); MAGNESIUM 1.9 mg/dL (1.8-2.4); PHOSPHOROUS 3.3 mg/dL (2.5-4.9); POTASSIUM 4.1 mmol/L (3.5-5.1); SODIUM 142 mmol/L (136-145)
[2017-09-09] MEDS: FERROUS SO4 325 MG TABLET (FP) PO SCH ×2 (10:25→17:54)
[2017-09-09] MEDS: SEVELAMER CARBONATE 800 MG TAB (FP) PO SCH ×2 (10:26→13:08)
--- NOTE | 2017-09-09 10:45 | PN ---
Progress Note, Physician History of Present Illness: Patient lethargic this morning. Wakes up but then falls back to sleep. To get another dialysis today. For altered mental status had CT head last night, which did show ventricular dilatation c/w normal pressure hydrocephalus. No fevers noted. - Current Medication List Current Medications: Active Medications Acetaminophen (Tylenol -) 650 mg PO Q4H PRN PRN Reason: PAIN LEVEL 1-5 Amlodipine Besylate (Norvasc -) 10 mg PO DAILY [facility] Last Admin: 09/08/17 12:01 Dose: 10 mg Ascorbic Acid (Vitamin C -) 500 mg PO BID [facility] Last Admin: 09/08/17 21:09 Dose: Not Given Atorvastatin Calcium (Lipitor -) 20 mg PO HS [facility] Last Admin: 09/08/17 21:08 Dose: Not Given Clonidine HCl (Catapres Tts Patch -) 0.2 mg TD Q7D@1000 [facility] Clopidogrel Bisulfate (Plavix -) 75 mg PO DAILY [facility] Last Admin: 09/08/17 12:02 Dose: 75 mg Cyanocobalamin (Vitamin B12 -) 1,000 mcg PO DAILY [facility] Last Admin: 09/08/17 12:02 Dose: 1,000 mcg Donepezil HCl (Aricept -) 5 mg PO BID [facility] Last Admin: 09/08/17 21:08 Dose: Not Given Ferrous Sulfate (Feosol -) 325 mg PO BIDWM [facility] Last Admin: 09/09/17 10:25 Dose: Not Given Fluticasone Propionate (Flonase -) 2 spray NS DAILY [facility] Last Admin: 09/08/17 12:03 Dose: Not Given Folic Acid (Folic Acid -) 1 mg PO DAILY [facility] Last Admin: 09/08/17 12:01 Dose: 1 mg Heparin Sodium (Porcine) (Heparin -) 5,000 unit SQ BID [facility] Last Admin: 09/08/17 21:15 Dose: 5,000 unit Hydralazine HCl (Apresoline -) 50 mg PO TID [facility] Last Admin: 09/09/17 05:26 Dose: Not Given Sodium Chloride (Normal Saline -) 250 mls @ 3,000 mls/hr IV PRN PRN PRN Reason: Hypotension during Dialysis Stop: 09/09/17 15:47 Insulin Aspart (Novolog Vial Sliding Scale -) 1 vial SQ ACHS [facility] PRN Reason: Protocol Last Admin: 09/09/17 06:22 Dose: Not Given Labetalol HCl (Normodyne -) 400 mg PO TID [facility] Last Admin: 09/09/17 05:26 Dose: Not Given Multivit/Ca Carb/B Cmplx/FA/Prenat (Nephro-Don -) 1 tablet PO DAILY [facility] Last Admin: 09/08/17 12:02 Dose: 1 tablet Ondansetron HCl (Zofran Injection) 4 mg IVPUSH Q6H PRN PRN Reason: NAUSEA Sevelamer Carbonate (Renvela -) 800 mg PO TIDCM [facility] Last Admin: 09/09/17 10:26 Dose: Not Given Sitagliptin Phosphate (Januvia -) 25 mg PO DAILY@0700 [facility] Last Admin: 09/09/17 06:22 Dose: Not Given - Objective Vital Signs: Vital Signs Temperature 97 F L 09/09/17 09:01 Pulse Rate 88 09/09/17 09:01 Respiratory Rate 18 09/09/17 09:01 Blood Pressure 134/80 09/09/17 09:01 O2 Sat by Pulse Oximetry (%) 100 09/08/17 21:00 Neck: Yes: Supple Cardiovascular: Yes: Regular Rate and Rhythm, S1, S2. No: Murmur Respiratory: Yes: Regular, CTA Bilaterally. No: Rales, Rhonchi, Wheezes Gastrointestinal: Yes: Normal Bowel Sounds, Soft. 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
[2017-09-09] MEDS: DONEPEZIL HCL 5 MG TABLET (FP) PO SCH ×2 (10:57→21:07)
[2017-09-09] MEDS: FLUTICASONE PROP 0.05% 16 GM NASAL SPRAY NS SCH (10:58)
[2017-09-09] MEDS: FOLIC ACID 1 MG TABLET (FP) PO SCH (10:59)
[2017-09-09] MEDS: HEPARIN NA (PORCINE) 5,000 UNITS/ML 1ML VIAL SQ SCH ×2 (10:59→21:07)
[2017-09-09] MEDS: amLODIPine BESYLATE 10 MG TABLET (FP) PO SCH (11:00)
[2017-09-09] MEDS: CLOPIDOGREL BISULFATE 75 MG TABLET (FP) PO SCH (11:00)
[2017-09-09] MEDS: CYANOCOBALAMIN 1,000 MCG TABLET (FP) PO SCH (11:00)
[2017-09-09] MEDS: VITAMIN B COMP W-C 1 EA TABLET PO SCH (11:00)
[2017-09-09] MEDS: ASCORBIC ACID 500 MG TABLET (FP) PO SCH ×2 (11:01→21:07)
--- NOTE | 2017-09-09 11:23 | PN ---
Progress Note (short form) - Note Progress Note: Permacath functioning well for access. I will schedule outpatient access creation after vein mapping completed in my office. Problem List - Problems (1) Chronic kidney failure Code(s): N18.9 - CHRONIC KIDNEY DISEASE, UNSPECIFIED Qualifiers: Chronic kidney disease stage: unspecified stage Qualified Code(s): N18.9 - Chronic kidney disease, unspecified
--- NOTE | 2017-09-09 12:41 | PN ---
Progress Note, Physician Chief Complaint: Pt seen at the start of HD She is poorly communicative and in no distress - Current Medication List Current Medications: Active Medications Acetaminophen (Tylenol -) 650 mg PO Q4H PRN PRN Reason: PAIN LEVEL 1-5 Amlodipine Besylate (Norvasc -) 10 mg PO DAILY [facility] Last Admin: 09/09/17 11:00 Dose: 10 mg Ascorbic Acid (Vitamin C -) 500 mg PO BID [facility] Last Admin: 09/09/17 11:01 Dose: 500 mg Atorvastatin Calcium (Lipitor -) 20 mg PO HS [facility] Last Admin: 09/08/17 21:08 Dose: Not Given Clonidine HCl (Catapres Tts Patch -) 0.2 mg TD Q7D@1000 [facility] Clopidogrel Bisulfate (Plavix -) 75 mg PO DAILY [facility] Last Admin: 09/09/17 11:00 Dose: 75 mg Cyanocobalamin (Vitamin B12 -) 1,000 mcg PO DAILY [facility] Last Admin: 09/09/17 11:00 Dose: 1,000 mcg Donepezil HCl (Aricept -) 5 mg PO BID [facility] Last Admin: 09/09/17 10:57 Dose: 5 mg Ferrous Sulfate (Feosol -) 325 mg PO BIDWM [facility] Last Admin: 09/09/17 10:25 Dose: Not Given Fluticasone Propionate (Flonase -) 2 spray NS DAILY [facility] Last Admin: 09/09/17 10:58 Dose: 2 sprays Folic Acid (Folic Acid -) 1 mg PO DAILY [facility] Last Admin: 09/09/17 10:59 Dose: 1 mg Heparin Sodium (Porcine) (Heparin -) 5,000 unit SQ BID [facility] Last Admin: 09/09/17 10:59 Dose: 5,000 unit Hydralazine HCl (Apresoline -) 50 mg PO TID [facility] Last Admin: 09/09/17 05:26 Dose: Not Given Sodium Chloride (Normal Saline -) 250 mls @ 3,000 mls/hr IV PRN PRN PRN Reason: Hypotension during Dialysis Stop: 09/09/17 15:47 Insulin Aspart (Novolog Vial Sliding Scale -) 1 vial SQ ACHS [facility] PRN Reason: Protocol Last Admin: 09/09/17 11:29 Dose: Not Given Labetalol HCl (Normodyne -) 400 mg PO TID [facility] Last Admin: 09/09/17 05:26 Dose: Not Given Multivit/Ca Carb/B Cmplx/FA/Prenat (Nephro-Don -) 1 tablet PO DAILY [facility] Last Admin: 09/09/17 11:00 Dose: 1 tablet Ondansetron HCl (Zofran Injection) 4 mg IVPUSH Q6H PRN PRN Reason: NAUSEA Sevelamer Carbonate (Renvela -) 800 mg PO TIDCM [facility] Last Admin: 09/09/17 10:26 Dose: Not Given Sitagliptin Phosphate (Januvia -) 25 mg PO DAILY@0700 [facility] Last Admin: 09/09/17 06:22 Dose: Not Given - Objective Vital Signs: Vital Signs Temperature 97 F L 09/09/17 09:01 Pulse Rate 88 09/09/17 09:01 Respiratory Rate 18 09/09/17 09:01 Blood Pressure 134/80 09/09/17 09:01 O2 Sat by Pulse Oximetry (%) 100 09/09/17 09:00 Constitutional: Yes: No Distress Cardiovascular: Yes: S1, S2 Respiratory: Yes: CTA Bilaterally Gastrointestinal: Yes: Soft. No: Tenderness, Rebound Edema: No Labs: CBC, BMP 09/09/17 06:00 09/09/17 06:00 INR, PTT INR 0.89 (0.82-1.09) 09/07/17 07:58 Assessment/Plan Impression 1. CKD 2. uremia 3. anemia 4. HTN 5. HLD 6. DM 7. hx endocarditis 8. GERD Plan - HD today as ordered without fluid removal - Will need AV access for HD - Encourage PO intake - Monitor the Hgb Dr Carreno
[2017-09-09] MEDS ORDERED: INSULIN (NOVOLOG) ASPART 100 UNITS/ML 10ML VIAL ONE (20:33)
[2017-09-09] MEDS: ATORVASTATIN CA 20 MG TABLET (FP) PO SCH (21:07)
[2017-09-10] MEDS: INSULIN SLIDING SCALE (NOVOLOG) 1 VIAL SQ SCH ×4 (06:36→21:31)
[2017-09-10 06:37] LABS: HBSAG SCREEN Negative (Negative); HEP A AB, IGM Negative (Negative); HEP B CORE AB, TOT Positive (Negative)
[2017-09-10] MEDS: sitaGLIPtin PHOSPHATE 25 MG TABLET (FP) PO SCH (06:38)
[2017-09-10] MEDS: LABETALOL HCL 200 MG TABLET (FP) PO SCH ×3 (06:38→21:33)
[2017-09-10] MEDS: hydrALAZINE HCL 50 MG TABLET (FP) PO SCH ×3 (06:38→21:33)
[2017-09-10 07:48] LABS: BASO % 0.3 % (0-2.0); EOS % 2.5 % (0-4.5); HEMATOCRIT 25.6 % (32.4-45.2); HEMOGLOBIN 8.4 GM/dL (10.7-15.3); LYMPH % 17.4 % (8-40); MCH 25.4 pg (25.7-33.7); MEAN CELL VOLUME 77.1 fl (80-96); MEAN PLT VOLUME 7.1 fl (7.5-11.1); MONO % 9.8 % (3.8-10.2); PLATELET COUNT 204 K/MM3 (134-434); RBC 3.32 M/mm3 (3.60-5.2); RDW 20.5 % (11.6-15.6)
--- NOTE | 2017-09-10 09:32 | PN ---
Progress Note, Physician History of Present Illness: Patient still not speaking, but more awake and alert today. Daughter at bedside (stayed over night to ensure that patient did not pull out dialysis catheter). Had complained of some pain yesterday to nurse, but denies any pain today ( shakes head when asked). - Current Medication List Current Medications: Active Medications Acetaminophen (Tylenol -) 650 mg PO Q4H PRN PRN Reason: PAIN LEVEL 1-5 Amlodipine Besylate (Norvasc -) 10 mg PO DAILY [facility] Last Admin: 09/09/17 11:00 Dose: 10 mg Ascorbic Acid (Vitamin C -) 500 mg PO BID [facility] Last Admin: 09/09/17 21:07 Dose: 500 mg Atorvastatin Calcium (Lipitor -) 20 mg PO HS [facility] Last Admin: 09/09/17 21:07 Dose: 20 mg Clonidine HCl (Catapres Tts Patch -) 0.2 mg TD Q7D@1000 [facility] Clopidogrel Bisulfate (Plavix -) 75 mg PO DAILY [facility] Last Admin: 09/09/17 11:00 Dose: 75 mg Cyanocobalamin (Vitamin B12 -) 1,000 mcg PO DAILY [facility] Last Admin: 09/09/17 11:00 Dose: 1,000 mcg Donepezil HCl (Aricept -) 5 mg PO BID [facility] Last Admin: 09/09/17 21:07 Dose: 5 mg Ferrous Sulfate (Feosol -) 325 mg PO BIDWM [facility] Last Admin: 09/09/17 17:54 Dose: 325 mg Fluticasone Propionate (Flonase -) 2 spray NS DAILY [facility] Last Admin: 09/09/17 10:58 Dose: 2 sprays Folic Acid (Folic Acid -) 1 mg PO DAILY [facility] Last Admin: 09/09/17 10:59 Dose: 1 mg Heparin Sodium (Porcine) (Heparin -) 5,000 unit SQ BID [facility] Last Admin: 09/09/17 21:07 Dose: 5,000 unit Hydralazine HCl (Apresoline -) 50 mg PO TID [facility] Last Admin: 09/10/17 06:38 Dose: 50 mg Sodium Chloride (Normal Saline -) 250 mls @ 3,000 mls/hr IV PRN PRN PRN Reason: Hypotension during Dialysis Stop: 09/09/17 15:47 Insulin Aspart (Novolog Vial Sliding Scale -) 1 vial SQ ACHS [facility] PRN Reason: Protocol Last Admin: 09/10/17 06:36 Dose: Not Given Labetalol HCl (Normodyne -) 400 mg PO TID [facility] Last Admin: 09/10/17 06:38 Dose: 400 mg Multivit/Ca Carb/B Cmplx/FA/Prenat (Nephro-Don -) 1 tablet PO DAILY [facility] Last Admin: 09/09/17 11:00 Dose: 1 tablet Ondansetron HCl (Zofran Injection) 4 mg IVPUSH Q6H PRN PRN Reason: NAUSEA Sitagliptin Phosphate (Januvia -) 25 mg PO DAILY@0700 [facility] Last Admin: 09/10/17 06:38 Dose: 25 mg - Objective Vital Signs: Vital Signs Temperature 98.6 F 09/10/17 06:00 Pulse Rate 101 H 09/10/17 06:00 Respiratory Rate 18 09/10/17 06:00 Blood Pressure 131/64 09/10/17 06:00 O2 Sat by Pulse Oximetry (%) 98 09/09/17 21:00 Constitutional: Yes: No Distress, Calm HENT: Yes: Atraumatic, Normocephalic Neck: Yes: Supple, Trachea Midline Cardiovascular: Yes: Regular Rate and Rhythm, S1, S2. No: Murmur Respiratory: Yes: Regular, CTA Bilaterally, Other (catheter in left subclavian area). No: Rales, Rhonchi, Wheezes Gastrointestinal: Yes: Normal Bowel Sounds, Soft. No: Distention, Tenderness Edema: No Neurological: Yes: Other (non-verbal) Labs: CBC, BMP 09/10/17 06:00 INR, PTT INR 0.89 (0.82-1.09) 09/07/17 07:58 Assessment/Plan Current Active Problems ESRD (end stage renal disease) (Acute) s/p permacath placement Metabolic encephalopathy (Acute) Uremia (Acute) Anemia (Acute) CAD (coronary artery disease) (Acute) Chronic kidney failure (Acute) Diabetes (Acute) HTN (hypertension) (Acute) History of CVA (cerebrovascular accident) (Acute) History of endocarditis (Acute) ?Normal Pressure Hydrocephalus -scheduled for dialysis tomorrow -remains afebrile off abx (positive blood culture may be contaminant) -cont current care
[2017-09-10] MEDS: FERROUS SO4 325 MG TABLET (FP) PO SCH ×2 (10:00→17:02)
[2017-09-10] MEDS: VITAMIN B COMP W-C 1 EA TABLET PO SCH (11:26)
[2017-09-10] MEDS: FLUTICASONE PROP 0.05% 16 GM NASAL SPRAY NS SCH (11:26)
[2017-09-10] MEDS: DONEPEZIL HCL 5 MG TABLET (FP) PO SCH ×2 (11:26→21:33)
[2017-09-10] MEDS: CLOPIDOGREL BISULFATE 75 MG TABLET (FP) PO SCH (11:26)
[2017-09-10] MEDS: CYANOCOBALAMIN 1,000 MCG TABLET (FP) PO SCH (11:27)
[2017-09-10] MEDS: amLODIPine BESYLATE 10 MG TABLET (FP) PO SCH (11:27)
[2017-09-10] MEDS: ASCORBIC ACID 500 MG TABLET (FP) PO SCH ×2 (11:27→21:33)
[2017-09-10] MEDS: FOLIC ACID 1 MG TABLET (FP) PO SCH (11:27)
[2017-09-10] MEDS: HEPARIN NA (PORCINE) 5,000 UNITS/ML 1ML VIAL SQ SCH ×2 (11:27→21:33)
--- NOTE | 2017-09-10 12:20 | CON.NEURO ---
Consult - Past Medical History [employer]: Yes: CVA Cardio/Vascular: Yes: CAD, HTN, Other (endocarditis) Gastrointestinal: Yes: GERD Renal/: Yes: Renal Failure Infectious Disease: Yes: Other (uti) Endocrine: Yes: Diabetes Mellitus - Past Surgical History Past Surgical History: Yes: Joint Replacement - Alcohol/Substance Use Hx Alcohol Use: No History of Substance Use: reports: None - Smoking History Smoking history: Former smoker Have you smoked in the past 12 months: No If you are a former smoker, when did you quit?: 6 YRS AGO - Social History ADL: Support Services History of Recent Travel: No Home Medications - Allergies Allergies/Adverse Reactions: Allergies Allergy/AdvReac Type Severity Reaction Status Date / Time Penicillins Allergy Verified 09/07/17 07:27 - Home Medications Home Medications: Ambulatory Orders Acetaminophen 650 mg PO Q6H PRN 09/07/17 Amlodipine Besylate 10 mg PO DAILY 09/07/17 Ascorbic Acid [Vitamin C -] 500 mg PO BID 09/07/17 Atorvastatin Ca [Lipitor] 20 mg PO HS 09/07/17 Clonidine Patch [Catapres Tts Patch -] 1 patch TD WEEKLY 09/07/17 Clopidogrel Bisulfate [Plavix] 75 mg PO DAILY 09/07/17 Collagenase Clostridium Hist. [Santyl -] 1 applic TP DAILY 09/07/17 Cyanocobalamin (Vitamin B-12) [Vitamin B-12] 1,000 mcg PO DAILY 09/07/17 Darbepoetin Sonny in [place] [Aranesp] 200 mcg SQ WEEKLY 09/07/17 Docusate Sodium [Colace] 200 mg PO HS 09/07/17 Donepezil HCl [Aricept] 5 mg PO BID 09/07/17 Famotidine 20 mg PO HS 09/07/17 Ferrous Sulfate 325 mg PO BID 09/07/17 Flonase Allergy Relief 2 sprays IH DAILY 09/07/17 Folic Acid 1 mg PO DAILY 09/07/17 Hydralazine HCl 50 mg PO TID 09/07/17 Insulin (Novolog) [Novolog Flexpen -] See Protocol 09/07/17 Labetalol HCl 200 mg PO TID 09/07/17 Menthol/Zinc Oxide [Calmoseptine Ointment] 1 applic TP BID 09/07/17 Sitagliptin Phosphate [Januvia] 50 mg PO DAILY 09/07/17 Sodium Chloride [Saline Mist] 1 spray NS TID 09/07/17 Vitamin B Comp W-C [Nephro-Don -] 0.8 mg PO DAILY 09/07/17 levoFLOXacin [Levaquin -] 250 mg PO Q48H 09/07/17 Family Disease History - Family Disease History Family Disease History: Diabetes: Mother Physical Exam-Neuro Vital Signs: Vital Signs Temperature 98 F 09/10/17 11:48 Pulse Rate 101 H 09/10/17 11:48 Respiratory Rate 18 09/10/17 11:48 Blood Pressure 103/54 09/10/17 11:48 O2 Sat by Pulse Oximetry (%) 98 09/09/17 21:00 Labs: CBC, BMP 09/10/17 06:00 INR, PTT INR 0.89 (0.82-1.09) 09/07/17 07:58 Assessment/Plan cc for possible NPH HPI 67 year old female history of dementia, stroke . She came iwth worsenign of lethargy and found to have worsening of bun and creatinine. Patient has been getting dialysis and as per nursing staff and daughter she has improved. Now she is more awake and alert. She talks very little, and she is able to eat puree diet, She is not mobile and she is mostly bed bound. Patient has stage 5 CKD. Patient has history of Dementia. Past Medical history CAD, HTN, GERD,CKD, Endocarditis, anemia, joint replacement , former smoker SH,ROS, FH reviewe din chart Allergies/Adverse Reactions: Allergies Allergy/AdvReac Type Severity Reaction Status Date / Time Penicillins Allergy Verified 09/07/17 07:27 Neurological Examination Alert and track objects , Patient is not having any spontaneous speech ( spoke to nursing , she speaks very slowly_ as per daughter she has improved since dialysis pupils is reactive and no face asymmetry moving all ext ( though not following command) Reflex generalized diminished CT head showed large ventricles Assessment- Most lilkely Worsening of alertness was due to uremic encephalopathy , she seems to be imroved after dialysis, given she is back to baseline and she has history of dementia, Large ventricles are due to cerebral atrophy , rather than NPH Plan- no need for mri ofbrain or , in my opinion she would not benefit from any shunt procedure at this time. - would do b12,folate tsh as not done recently continue aricept and supportive treatment Thanking you so much Sourav Brownlee MD
[2017-09-10 13:07] LABS: ALBUMIN 2.8 g/dl (3.4-5.0); ANION GAP 13 (8-16); BILIRUBIN,TOTAL 0.4 mg/dL (0.2-1.0); BLOOD UREA NITROGEN 28 mg/dL (7-18); CALCIUM 8.5 mg/dL (8.5-10.1); CHLORIDE 106 mmol/L (98-107); CO2 25 mmol/L (21-32); CREATININE 4.2 mg/dL (0.55-1.02); GLUCOSE,RANDOM 96 mg/dL (74-106); POTASSIUM 4.1 mmol/L (3.5-5.1); SGOT/AST 32 U/L (15-37); SGPT/ALT 26 U/L (12-78); SODIUM 144 mmol/L (136-145)
[2017-09-10 13:30] LABS: ALK PHOS 98 U/L (45-117); TOT PROT 6.2 g/dl (6.4-8.2)
[2017-09-10 15:00] LABS: ANION GAP 11 (8-16); BLOOD UREA NITROGEN 30 mg/dL (7-18); CHLORIDE 107 mmol/L (98-107); CO2 28 mmol/L (21-32); CREATININE 4.2 mg/dL (0.55-1.02); GLUCOSE,RANDOM 101 mg/dL (74-106); POTASSIUM 4.1 mmol/L (3.5-5.1); SODIUM 146 mmol/L (136-145)
[2017-09-10 15:01] LABS: ALBUMIN 3.1 g/dl (3.4-5.0); BILIRUBIN,TOTAL 0.5 mg/dL (0.2-1.0); CALCIUM 9.4 mg/dL (8.5-10.1); SGOT/AST 30 U/L (15-37); TOT PROT 6.1 g/dl (6.4-8.2)
[2017-09-10 15:02] LABS: ALK PHOS 95 U/L (45-117); SGPT/ALT 21 U/L (12-78)
--- NOTE | 2017-09-10 16:47 | PN ---
Progress Note, Physician Chief Complaint: She is poorly communicative and in no distress Seen by neurology and the AMS attributed to the toxic metabolic state from uremia - Current Medication List Current Medications: Active Medications Acetaminophen (Tylenol -) 650 mg PO Q4H PRN PRN Reason: PAIN LEVEL 1-5 Amlodipine Besylate (Norvasc -) 10 mg PO DAILY [facility] [place] Last Admin: 09/10/17 11:27 Dose: 10 mg Ascorbic Acid (Vitamin C -) 500 mg PO BID [facility] [place] Last Admin: 09/10/17 11:27 Dose: 500 mg Atorvastatin Calcium (Lipitor -) 20 mg PO HS [facility] [place] Last Admin: 09/09/17 21:07 Dose: 20 mg Clonidine HCl (Catapres Tts Patch -) 0.2 mg TD Q7D@1000 [facility] [place] Clopidogrel Bisulfate (Plavix -) 75 mg PO DAILY [facility] [place] Last Admin: 09/10/17 11:26 Dose: 75 mg Cyanocobalamin (Vitamin B12 -) 1,000 mcg PO DAILY [facility] [place] Last Admin: 09/10/17 11:27 Dose: 1,000 mcg Donepezil HCl (Aricept -) 5 mg PO BID [facility] [place] Last Admin: 09/10/17 11:26 Dose: 5 mg Ferrous Sulfate (Feosol -) 325 mg PO BIDWM [facility] [place] Last Admin: 09/10/17 10:00 Dose: Not Given Fluticasone Propionate (Flonase -) 2 spray NS DAILY [facility] [place] Last Admin: 09/10/17 11:26 Dose: 2 sprays Folic Acid (Folic Acid -) 1 mg PO DAILY [facility] [place] Last Admin: 09/10/17 11:27 Dose: 1 mg Heparin Sodium (Porcine) (Heparin -) 5,000 unit SQ BID [facility] [place] Last Admin: 09/10/17 11:27 Dose: 5,000 unit Hydralazine HCl (Apresoline -) 50 mg PO TID [facility] [place] Last Admin: 09/10/17 15:07 Dose: Not Given Sodium Chloride (Normal Saline -) 250 mls @ 3,000 mls/hr IV PRN PRN PRN Reason: Hypotension during Dialysis Stop: 09/09/17 15:47 Insulin Aspart (Novolog Vial Sliding Scale -) 1 vial SQ ACHS [facility] [place] PRN Reason: Protocol Last Admin: 09/10/17 12:05 Dose: Not Given Labetalol HCl (Normodyne -) 400 mg PO TID [facility] [place] Last Admin: 09/10/17 15:07 Dose: Not Given Multivit/Ca Carb/B Cmplx/FA/Prenat (Nephro-Don -) 1 tablet PO DAILY [facility] [place] Last Admin: 09/10/17 11:26 Dose: 1 tablet Ondansetron HCl (Zofran Injection) 4 mg IVPUSH Q6H PRN PRN Reason: NAUSEA Sitagliptin Phosphate (Januvia -) 25 mg PO DAILY@0700 [facility] [place] Last Admin: 09/10/17 06:38 Dose: 25 mg - Objective Vital Signs: Vital Signs Temperature 98.4 F 09/10/17 14:14 Pulse Rate 106 H 09/10/17 14:14 Respiratory Rate 20 09/10/17 14:14 Blood Pressure 110/63 09/10/17 14:14 O2 Sat by Pulse Oximetry (%) 98 09/10/17 09:00 Constitutional: Yes: No Distress Neck: Yes: Other ([facility] Cath) Cardiovascular: Yes: S1, S2 Respiratory: Yes: CTA Bilaterally Gastrointestinal: Yes: Soft. No: Tenderness Edema: No Labs: CBC, BMP 09/10/17 06:00 09/10/17 06:00 INR, PTT INR 0.89 (0.82-1.09) 09/07/17 07:58 Assessment/Plan Impression 1. CKD 2. Uremia improved with dialysis 3. Anemia 4. HTN 5. HLD 6. DM 7. Hx endocarditis 8. GERD 9. AMS from uremia with baseline dementia - See neuro consult Plan - Next HD 09/12 - Will need AV access for HD - Encourage PO intake - Monitor the Hgb Dr Carreno
[2017-09-10] MEDS: ATORVASTATIN CA 20 MG TABLET (FP) PO SCH (21:33)
[2017-09-11] MEDS: INSULIN SLIDING SCALE (NOVOLOG) 1 VIAL SQ SCH ×4 (06:17→21:00)
[2017-09-11] MEDS: LABETALOL HCL 200 MG TABLET (FP) PO SCH ×3 (06:17→21:00)
[2017-09-11] MEDS: sitaGLIPtin PHOSPHATE 25 MG TABLET (FP) PO SCH (06:17)
[2017-09-11] MEDS: hydrALAZINE HCL 50 MG TABLET (FP) PO SCH ×3 (06:17→21:01)
[2017-09-11 07:52] LABS: BASO % 0.7 % (0-2.0); EOS % 2.8 % (0-4.5); HEMATOCRIT 27.5 % (32.4-45.2); HEMOGLOBIN 8.9 GM/dL (10.7-15.3); LYMPH % 21.2 % (8-40); MCH 24.9 pg (25.7-33.7); MCHC 32.4 g/dl (32.0-36.0); MEAN CELL VOLUME 76.9 fl (80-96); MEAN PLT VOLUME 6.8 fl (7.5-11.1); MONO % 9.8 % (3.8-10.2); NEUT % 65.5 % (42.8-82.8); PLATELET COUNT 190 K/MM3 (134-434); RBC 3.58 M/mm3 (3.60-5.2); RDW 20.3 % (11.6-15.6); WHITE BLOOD COUNT 7.2 K/mm3 (4.0-10.0)
[2017-09-11 08:13] LABS: ALBUMIN 2.6 g/dl (3.4-5.0); ANION GAP 6 (8-16); BILIRUBIN,TOTAL 0.3 mg/dL (0.2-1.0); BLOOD UREA NITROGEN 38 mg/dL (7-18); CALCIUM 8.2 mg/dL (8.5-10.1); CHLORIDE 109 mmol/L (98-107); CO2 28 mmol/L (21-32); CREATININE 5.8 mg/dL (0.55-1.02); GLUCOSE,RANDOM 85 mg/dL (74-106); POTASSIUM 4.2 mmol/L (3.5-5.1); SGOT/AST 29 U/L (15-37); SGPT/ALT 23 U/L (12-78); SODIUM 143 mmol/L (136-145); TOT PROT 5.8 g/dl (6.4-8.2)
[2017-09-11 08:22] LABS: ALK PHOS 97 U/L (45-117)
[2017-09-11] MEDS: HEPARIN NA (PORCINE) 5,000 UNITS/ML 1ML VIAL SQ SCH ×2 (09:14→21:01)
[2017-09-11] MEDS: FERROUS SO4 325 MG TABLET (FP) PO SCH ×3 (09:14→16:55)
[2017-09-11] MEDS: FOLIC ACID 1 MG TABLET (FP) PO SCH ×2 (09:14→10:25)
[2017-09-11] MEDS: CYANOCOBALAMIN 1,000 MCG TABLET (FP) PO SCH ×2 (09:14→10:25)
[2017-09-11] MEDS: VITAMIN B COMP W-C 1 EA TABLET PO SCH ×2 (09:14→10:25)
[2017-09-11] MEDS: CLOPIDOGREL BISULFATE 75 MG TABLET (FP) PO SCH ×2 (09:14→10:25)
[2017-09-11] MEDS: amLODIPine BESYLATE 10 MG TABLET (FP) PO SCH ×2 (09:14→10:25)
[2017-09-11] MEDS: DONEPEZIL HCL 5 MG TABLET (FP) PO SCH ×3 (09:14→21:04)
[2017-09-11] MEDS: ASCORBIC ACID 500 MG TABLET (FP) PO SCH ×3 (09:14→20:59)
[2017-09-11] MEDS: FLUTICASONE PROP 0.05% 16 GM NASAL SPRAY NS SCH (09:15)
[2017-09-11] MEDS ORDERED: PT OWN MED DRAWER 7, Y5N ONE (16:14)
--- NOTE | 2017-09-11 16:18 | PN ---
Progress Note, Physician Chief Complaint: Unable to obtain. Ms Medina Monday is awake and tracking but non-communicative today - Current Medication List Current Medications: Active Medications Acetaminophen (Tylenol -) 650 mg PO Q4H PRN PRN Reason: PAIN LEVEL 1-5 Amlodipine Besylate (Norvasc -) 10 mg PO DAILY [facility] Last Admin: 09/11/17 10:25 Dose: Not Given Ascorbic Acid (Vitamin C -) 500 mg PO BID [facility] Last Admin: 09/11/17 10:25 Dose: Not Given Atorvastatin Calcium (Lipitor -) 20 mg PO HS [facility] Last Admin: 09/10/17 21:33 Dose: 20 mg Clonidine HCl (Catapres Tts Patch -) 0.2 mg TD Q7D@1000 [facility] Clopidogrel Bisulfate (Plavix -) 75 mg PO DAILY [facility] Last Admin: 09/11/17 10:25 Dose: Not Given Cyanocobalamin (Vitamin B12 -) 1,000 mcg PO DAILY [facility] Last Admin: 09/11/17 10:25 Dose: Not Given Donepezil HCl (Aricept -) 5 mg PO BID [facility] Last Admin: 09/11/17 10:24 Dose: Not Given Ferrous Sulfate (Feosol -) 325 mg PO BIDWM [facility] Last Admin: 09/11/17 10:26 Dose: Not Given Fluticasone Propionate (Flonase -) 2 spray NS DAILY [facility] Last Admin: 09/11/17 09:15 Dose: 2 sprays Folic Acid (Folic Acid -) 1 mg PO DAILY [facility] Last Admin: 09/11/17 10:25 Dose: Not Given Heparin Sodium (Porcine) (Heparin -) 5,000 unit SQ BID [facility] Last Admin: 09/11/17 09:14 Dose: 5,000 unit Hydralazine HCl (Apresoline -) 50 mg PO TID [facility] Last Admin: 09/11/17 13:43 Dose: Not Given Sodium Chloride (Normal Saline -) 250 mls @ 3,000 mls/hr IV PRN PRN PRN Reason: Hypotension during Dialysis Stop: 09/09/17 15:47 Insulin Aspart (Novolog Vial Sliding Scale -) 1 vial SQ ACHS [facility] PRN Reason: Protocol Last Admin: 09/11/17 11:57 Dose: Not Given Labetalol HCl (Normodyne -) 400 mg PO TID [facility] Last Admin: 09/11/17 13:43 Dose: Not Given Multivit/Ca Carb/B Cmplx/FA/Prenat (Nephro-Don -) 1 tablet PO DAILY [facility] Last Admin: 09/11/17 10:25 Dose: Not Given Ondansetron HCl (Zofran Injection) 4 mg IVPUSH Q6H PRN PRN Reason: NAUSEA Sitagliptin Phosphate (Januvia -) 25 mg PO DAILY@0700 [facility] Last Admin: 09/11/17 06:17 Dose: Not Given - Objective Vital Signs: Vital Signs Temperature 37.0 C 09/11/17 15:17 Pulse Rate 104 H 09/11/17 15:17 Respiratory Rate 18 09/11/17 15:17 Blood Pressure 112/61 09/11/17 15:17 O2 Sat by Pulse Oximetry (%) 100 09/11/17 09:00 Constitutional: Yes: Well Nourished, No Distress, Calm Cardiovascular: Yes: Regular Rate and Rhythm. No: Gallop, Murmur, Rub Respiratory: Yes: Regular, CTA Bilaterally. No: Rales, Rhonchi, Wheezes Gastrointestinal: Yes: Normal Bowel Sounds, Soft. No: Distention, Tenderness Extremities: Yes: WNL Edema: No Labs: CBC, BMP 09/11/17 06:50 09/11/17 06:50 INR, PTT INR 0.89 (0.82-1.09) 09/07/17 07:58 Problem List - Problems (1) ESRD (end stage renal disease) Code(s): N18.6 - END STAGE RENAL DISEASE (2) Metabolic encephalopathy Code(s): G93.41 - METABOLIC ENCEPHALOPATHY (3) HTN (hypertension) Code(s): I10 - ESSENTIAL (PRIMARY) HYPERTENSION (4) Diabetes Code(s): E11.9 - TYPE 2 DIABETES MELLITUS WITHOUT COMPLICATIONS (5) History of CVA (cerebrovascular accident) Code(s): Z86.73 - PRSNL HX OF TIA (TIA), AND CEREB INFRC W/O RESID DEFICITS (6) CAD (coronary artery disease) Code(s): I25.10 - ATHSCL HEART DISEASE OF [place] CORONARY ARTERY W/O ANG PCTRS (7) Anemia Code(s): D64.9 - ANEMIA, UNSPECIFIED Qualifiers: Anemia type: due to chronic kidney disease Chronic kidney disease stage: on chronic dialysis Qualified Code(s): N18.6 - End stage renal disease; D63.1 - Anemia in chronic kidney disease; D63.1 - Anemia in chronic kidney disease; Z99.2 - Dependence on renal dialysis; Z99.2 - Dependence on renal dialysis; Z99.2 - Dependence on renal dialysis; Z99.2 - Dependence on renal dialysis (8) History of endocarditis Code(s): Z86.79 - PERSONAL HISTORY OF OTHER DISEASES OF THE CIRCULATORY SYSTEM Assessment/Plan (1) ESRD (end stage renal disease) Assessment/Plan: -case d/w Dr Barron -s/p HD and tolerated well -needs placement for HD -? if benefit from fistula placement this hospital stay Code(s): N18.6 - END STAGE RENAL DISEASE (2) Metabolic encephalopathy Assessment/Plan: -continue HD Code(s): G93.41 - METABOLIC ENCEPHALOPATHY (3) HTN (hypertension) Assessment/Plan: -continue hydralazine, clonidine patch, labetolol, and norvasc -well controlled Code(s): I10 - ESSENTIAL (PRIMARY) HYPERTENSION (4) Diabetes Assessment/Plan: -diabetic diet -continue januvia, renally dosed -FSBS and SSI Code(s): E11.9 - TYPE 2 DIABETES MELLITUS WITHOUT COMPLICATIONS (5) History of CVA (cerebrovascular accident) Assessment/Plan: -continue plavix Code(s): Z86.73 - PRSNL HX OF TIA (TIA), AND CEREB INFRC W/O RESID DEFICITS (6) CAD (coronary artery disease) Assessment/Plan: -quiescent -continue home regimen Code(s): I25.10 - ATHSCL HEART DISEASE OF [place] CORONARY ARTERY W/O ANG PCTRS (7) Anemia Assessment/Plan: -monitor -no need for transfusion -continue iron Code(s): D64.9 - ANEMIA, UNSPECIFIED Qualifiers: Anemia type: due to chronic kidney disease Chronic kidney disease stage: on chronic dialysis Qualified Code(s): N18.6 - End stage renal disease; D63.1 - Anemia in chronic kidney disease; D63.1 - Anemia in chronic kidney disease; Z99.2 - Dependence on renal dialysis; Z99.2 - Dependence on renal dialysis; Z99.2 - Dependence on renal dialysis; Z99.2 - Dependence on renal dialysis (8) History of endocarditis Assessment/Plan: -blood cultures TD Code(s): Z86.79 - PERSONAL HISTORY OF OTHER DISEASES OF THE CIRCULATORY SYSTEM
--- NOTE | 2017-09-11 16:31 | PN ---
Progress Note, Physician History of Present Illness: Pt seen and examined at bedside. She refused her meds today. - Current Medication List Current Medications: Active Medications Acetaminophen (Tylenol -) 650 mg PO Q4H PRN PRN Reason: PAIN LEVEL 1-5 Amlodipine Besylate (Norvasc -) 10 mg PO DAILY [facility] Last Admin: 09/11/17 10:25 Dose: Not Given Ascorbic Acid (Vitamin C -) 500 mg PO BID [facility] Last Admin: 09/11/17 10:25 Dose: Not Given Atorvastatin Calcium (Lipitor -) 20 mg PO HS [facility] Last Admin: 09/10/17 21:33 Dose: 20 mg Clonidine HCl (Catapres Tts Patch -) 0.2 mg TD Q7D@1000 [facility] Clopidogrel Bisulfate (Plavix -) 75 mg PO DAILY [facility] Last Admin: 09/11/17 10:25 Dose: Not Given Cyanocobalamin (Vitamin B12 -) 1,000 mcg PO DAILY [facility] Last Admin: 09/11/17 10:25 Dose: Not Given Donepezil HCl (Aricept -) 5 mg PO BID [facility] Last Admin: 09/11/17 10:24 Dose: Not Given Ferrous Sulfate (Feosol -) 325 mg PO BIDWM [facility] Last Admin: 09/11/17 10:26 Dose: Not Given Fluticasone Propionate (Flonase -) 2 spray NS DAILY [facility] Last Admin: 09/11/17 09:15 Dose: 2 sprays Folic Acid (Folic Acid -) 1 mg PO DAILY [facility] Last Admin: 09/11/17 10:25 Dose: Not Given Heparin Sodium (Porcine) (Heparin -) 5,000 unit SQ BID [facility] Last Admin: 09/11/17 09:14 Dose: 5,000 unit Hydralazine HCl (Apresoline -) 50 mg PO TID [facility] Last Admin: 09/11/17 13:43 Dose: Not Given Sodium Chloride (Normal Saline -) 250 mls @ 3,000 mls/hr IV PRN PRN PRN Reason: Hypotension during Dialysis Stop: 09/09/17 15:47 Insulin Aspart (Novolog Vial Sliding Scale -) 1 vial SQ ACHS [facility] PRN Reason: Protocol Last Admin: 09/11/17 11:57 Dose: Not Given Labetalol HCl (Normodyne -) 400 mg PO TID [facility] Last Admin: 09/11/17 13:43 Dose: Not Given Multivit/Ca Carb/B Cmplx/FA/Prenat (Nephro-Don -) 1 tablet PO DAILY [facility] Last Admin: 09/11/17 10:25 Dose: Not Given Ondansetron HCl (Zofran Injection) 4 mg IVPUSH Q6H PRN PRN Reason: NAUSEA Sitagliptin Phosphate (Januvia -) 25 mg PO DAILY@0700 [facility] Last Admin: 09/11/17 06:17 Dose: Not Given - Objective Vital Signs: Vital Signs Temperature 98.6 F 09/11/17 15:17 Pulse Rate 104 H 09/11/17 15:17 Respiratory Rate 18 09/11/17 15:17 Blood Pressure 112/61 09/11/17 15:17 O2 Sat by Pulse Oximetry (%) 100 09/11/17 09:00 Constitutional: Yes: Calm Eyes: Yes: Conjunctiva Clear HENT: Yes: Atraumatic Cardiovascular: Yes: S1, S2 Respiratory: Yes: CTA Bilaterally Gastrointestinal: Yes: Soft Genitourinary: Yes: Incontinence Musculoskeletal: Yes: WNL Edema: No Integumentary: Yes: WNL Neurological: Yes: Confusion Psychiatric: Yes: Agitated Labs: CBC, BMP 09/11/17 06:50 09/11/17 06:50 INR, PTT INR 0.89 (0.82-1.09) 09/07/17 07:58 Problem List - Problems (1) Chronic kidney failure Code(s): N18.9 - CHRONIC KIDNEY DISEASE, UNSPECIFIED Qualifiers: Chronic kidney disease stage: unspecified stage Qualified Code(s): N18.9 - Chronic kidney disease, unspecified (2) Uremia Code(s): N19 - UNSPECIFIED KIDNEY FAILURE Assessment/Plan Current Medications Generic Name Dose Route Start Last Admin Trade Name Freq PRN Reason Stop Dose Admin Acetaminophen 650 mg 09/07/17 19:00 Tylenol - PO Q4H PRN PAIN LEVEL 1-5 Amlodipine Besylate 10 mg 09/08/17 10:00 09/11/17 10:25 Norvasc - PO Not Given DAILY [facility] Ascorbic Acid 500 mg 09/07/17 22:00 09/11/17 10:25 Vitamin C - PO Not Given BID [facility] Atorvastatin Calcium 20 mg 09/07/17 22:00 09/10/17 21:33 Lipitor - PO 20 mg HS [facility] Administration Clonidine HCl 0.2 mg 09/14/17 10:00 Catapres Tts Patch - TD Q7D@1000 [facility] Clopidogrel Bisulfate 75 mg 09/08/17 10:00 09/11/17 10:25 Plavix - PO Not Given DAILY [facility] Cyanocobalamin 1,000 mcg 09/08/17 10:00 09/11/17 10:25 Vitamin B12 - PO Not Given DAILY [facility] Donepezil HCl 5 mg 09/07/17 22:00 09/11/17 10:24 Aricept - PO Not Given BID [facility] Ferrous Sulfate 325 mg 09/08/17 08:00 09/11/17 10:26 Feosol - PO Not Given BIDWM [facility] Fluticasone Propionate 2 spray 09/08/17 10:00 09/11/17 09:15 Flonase - NS 2 sprays DAILY [facility] Administration Folic Acid 1 mg 09/08/17 10:00 09/11/17 10:25 Folic Acid - PO Not Given DAILY [facility] Heparin Sodium (Porcine) 5,000 unit 09/07/17 22:00 09/11/17 09:14 Heparin - SQ 5,000 unit BID [facility] Administration Hydralazine HCl 50 mg 09/07/17 22:00 09/11/17 13:43 Apresoline - PO Not Given TID [facility] Sodium Chloride 250 mls @ 3,000 mls/hr 09/08/17 15:47 Normal Saline - IV 09/09/17 15:47 PRN PRN Hypotension during Dialysis Insulin Aspart 1 vial 09/07/17 22:00 09/11/17 11:57 Novolog Vial Sliding Scale - SQ Not Given ACHS [facility] Protocol Labetalol HCl 400 mg 09/07/17 22:00 09/11/17 13:43 Normodyne - PO Not Given TID [facility] Multivit/Ca Carb/B Cmplx/FA/Prenat 1 tablet 09/08/17 10:00 09/11/17 10:25 Nephro-Don - PO Not Given DAILY [facility] Ondansetron HCl 4 mg 09/07/17 19:00 Zofran Injection IVPUSH Q6H PRN NAUSEA Sitagliptin Phosphate 25 mg 09/08/17 07:00 09/11/17 06:17 Januvia - PO Not Given DAILY@0700 [facility] Impression 1. ESRD 2. uremia 3. anemia 4. HTN 5. HLD 6. DM 7. hx endocarditis 8. GERD Plan - HD in am - will not remove volume tomorrow - vascular input appreciated, fistula as outpt - will need placement in outpt HD facility - encourage PO intake - will follow Dr Barron
[2017-09-11] MEDS ORDERED: SODIUM CHLORIDE 250 ML IV PRN (16:32)
[2017-09-11] MEDS ORDERED: INSULIN (NOVOLOG) ASPART 100 UNITS/ML 10ML VIAL ONE (19:52)
[2017-09-11] MEDS: ATORVASTATIN CA 20 MG TABLET (FP) PO SCH (21:01)
[2017-09-12] MEDS: hydrALAZINE HCL 50 MG TABLET (FP) PO SCH ×3 (05:37→21:19)
[2017-09-12] MEDS: LABETALOL HCL 200 MG TABLET (FP) PO SCH ×3 (05:38→21:19)
[2017-09-12] MEDS: sitaGLIPtin PHOSPHATE 25 MG TABLET (FP) PO SCH (06:13)
[2017-09-12] MEDS: INSULIN SLIDING SCALE (NOVOLOG) 1 VIAL SQ SCH ×4 (06:13→21:20)
[2017-09-12 07:51] LABS: BASO % 0.7 % (0-2.0); EOS % 2.2 % (0-4.5); HEMATOCRIT 25.1 % (32.4-45.2); HEMOGLOBIN 8.3 GM/dL (10.7-15.3); LYMPH % 19.8 % (8-40); MCH 25.2 pg (25.7-33.7); MCHC 32.9 g/dl (32.0-36.0); MEAN CELL VOLUME 76.7 fl (80-96); MONO % 7.8 % (3.8-10.2); NEUT % 69.5 % (42.8-82.8); PLATELET COUNT 195 K/MM3 (134-434); RBC 3.27 M/mm3 (3.60-5.2); RDW 20.1 % (11.6-15.6); WHITE BLOOD COUNT 7.7 K/mm3 (4.0-10.0)
[2017-09-12 08:04] LABS: ANION GAP 4 (8-16); BLOOD UREA NITROGEN 52 mg/dL (7-18); CALCIUM 8.3 mg/dL (8.5-10.1); CHLORIDE 112 mmol/L (98-107); CO2 27 mmol/L (21-32); GLUCOSE,RANDOM 80 mg/dL (74-106); MAGNESIUM 1.6 mg/dL (1.8-2.4); POTASSIUM 4.4 mmol/L (3.5-5.1); SODIUM 143 mmol/L (136-145)
[2017-09-12 08:05] LABS: CREATININE 7.3 mg/dL (0.55-1.02); PHOSPHOROUS 3.6 mg/dL (2.5-4.9)
[2017-09-12] MEDS: FERROUS SO4 325 MG TABLET (FP) PO SCH ×3 (08:59→18:21)
--- NOTE | 2017-09-12 12:00 | PN ---
Progress Note, Physician Chief Complaint: Ms Medina Monday remains non-verbal but says she feels "so-so" by hand gestures. Only nods yes when asked if feeling tired, does not otherwise respond. - Current Medication List Current Medications: Active Medications Acetaminophen (Tylenol -) 650 mg PO Q4H PRN PRN Reason: PAIN LEVEL 1-5 Amlodipine Besylate (Norvasc -) 10 mg PO DAILY [facility] Last Admin: 09/11/17 10:25 Dose: Not Given Ascorbic Acid (Vitamin C -) 500 mg PO BID [facility] Last Admin: 09/11/17 20:59 Dose: 500 mg Atorvastatin Calcium (Lipitor -) 20 mg PO HS [facility] Last Admin: 09/11/17 21:01 Dose: 20 mg Clonidine HCl (Catapres Tts Patch -) 0.2 mg TD Q7D@1000 [facility] Clopidogrel Bisulfate (Plavix -) 75 mg PO DAILY [facility] Last Admin: 09/11/17 10:25 Dose: Not Given Cyanocobalamin (Vitamin B12 -) 1,000 mcg PO DAILY [facility] Last Admin: 09/11/17 10:25 Dose: Not Given Donepezil HCl (Aricept -) 5 mg PO BID [facility] Last Admin: 09/11/17 21:04 Dose: 5 mg Ferrous Sulfate (Feosol -) 325 mg PO BIDWM [facility] Last Admin: 09/12/17 08:59 Dose: Not Given Fluticasone Propionate (Flonase -) 2 spray NS DAILY [facility] Last Admin: 09/11/17 09:15 Dose: 2 sprays Folic Acid (Folic Acid -) 1 mg PO DAILY [facility] Last Admin: 09/11/17 10:25 Dose: Not Given Heparin Sodium (Porcine) (Heparin -) 5,000 unit SQ BID [facility] Last Admin: 09/11/17 21:01 Dose: 5,000 unit Hydralazine HCl (Apresoline -) 50 mg PO TID [facility] Last Admin: 09/12/17 05:37 Dose: Not Given Sodium Chloride (Normal Saline -) 250 mls @ 3,000 mls/hr IV PRN PRN PRN Reason: Hypotension during Dialysis Stop: 09/12/17 16:32 Insulin Aspart (Novolog Vial Sliding Scale -) 1 vial SQ ACHS [facility] PRN Reason: Protocol Last Admin: 09/12/17 06:13 Dose: Not Given Labetalol HCl (Normodyne -) 400 mg PO TID [facility] Last Admin: 09/12/17 05:38 Dose: Not Given Multivit/Ca Carb/B Cmplx/FA/Prenat (Nephro-Don -) 1 tablet PO DAILY [facility] Last Admin: 09/11/17 10:25 Dose: Not Given Ondansetron HCl (Zofran Injection) 4 mg IVPUSH Q6H PRN PRN Reason: NAUSEA Sitagliptin Phosphate (Januvia -) 25 mg PO DAILY@0700 [facility] Last Admin: 09/12/17 06:13 Dose: Not Given - Objective Vital Signs: Vital Signs Temperature 37.3 C 09/12/17 09:00 Pulse Rate 102 H 09/12/17 09:00 Respiratory Rate 18 09/12/17 09:00 Blood Pressure 127/67 09/12/17 09:00 O2 Sat by Pulse Oximetry (%) 98 09/12/17 09:00 Constitutional: Yes: No Distress, Calm, Thin Cardiovascular: Yes: Regular Rate and Rhythm. No: Gallop, Murmur, Rub Respiratory: Yes: Regular, CTA Bilaterally. No: Rales, Rhonchi, Wheezes Gastrointestinal: Yes: Normal Bowel Sounds, Soft. No: Distention, Tenderness Extremities: Yes: WNL Edema: No Labs: CBC, BMP 09/12/17 06:00 09/12/17 06:00 INR, PTT INR 0.89 (0.82-1.09) 09/07/17 07:58 Problem List - Problems (1) ESRD (end stage renal disease) Code(s): N18.6 - END STAGE RENAL DISEASE (2) Metabolic encephalopathy Code(s): G93.41 - METABOLIC ENCEPHALOPATHY (3) HTN (hypertension) Code(s): I10 - ESSENTIAL (PRIMARY) HYPERTENSION (4) Diabetes Code(s): E11.9 - TYPE 2 DIABETES MELLITUS WITHOUT COMPLICATIONS (5) History of CVA (cerebrovascular accident) Code(s): Z86.73 - PRSNL HX OF TIA (TIA), AND CEREB INFRC W/O RESID DEFICITS (6) CAD (coronary artery disease) Code(s): I25.10 - ATHSCL HEART DISEASE OF [place] CORONARY ARTERY W/O ANG PCTRS (7) Anemia Code(s): D64.9 - ANEMIA, UNSPECIFIED Qualifiers: Anemia type: due to chronic kidney disease Chronic kidney disease stage: on chronic dialysis Qualified Code(s): N18.6 - End stage renal disease; D63.1 - Anemia in chronic kidney disease; D63.1 - Anemia in chronic kidney disease; Z99.2 - Dependence on renal dialysis; Z99.2 - Dependence on renal dialysis; Z99.2 - Dependence on renal dialysis; Z99.2 - Dependence on renal dialysis (8) History of endocarditis Code(s): Z86.79 - PERSONAL HISTORY OF OTHER DISEASES OF THE CIRCULATORY SYSTEM Assessment/Plan (1) ESRD (end stage renal disease) Assessment/Plan: -case d/w Dr Barron -s/p HD and tolerated well -needs placement for HD Code(s): N18.6 - END STAGE RENAL DISEASE (2) Metabolic encephalopathy Assessment/Plan: -continue HD Code(s): G93.41 - METABOLIC ENCEPHALOPATHY (3) HTN (hypertension) Assessment/Plan: -continue hydralazine, clonidine patch, labetolol, and norvasc -well controlled Code(s): I10 - ESSENTIAL (PRIMARY) HYPERTENSION (4) Diabetes Assessment/Plan: -diabetic diet -continue januvia, renally dosed -FSBS and SSI Code(s): E11.9 - TYPE 2 DIABETES MELLITUS WITHOUT COMPLICATIONS (5) History of CVA (cerebrovascular accident) Assessment/Plan: -continue plavix Code(s): Z86.73 - PRSNL HX OF TIA (TIA), AND CEREB INFRC W/O RESID DEFICITS (6) CAD (coronary artery disease) Assessment/Plan: -quiescent -continue home regimen Code(s): I25.10 - ATHSCL HEART DISEASE OF [place] CORONARY ARTERY W/O ANG PCTRS (7) Anemia Assessment/Plan: -monitor -no need for transfusion -continue iron Code(s): D64.9 - ANEMIA, UNSPECIFIED Qualifiers: Anemia type: due to chronic kidney disease Chronic kidney disease stage: on chronic dialysis Qualified Code(s): N18.6 - End stage renal disease; D63.1 - Anemia in chronic kidney disease; D63.1 - Anemia in chronic kidney disease; Z99.2 - Dependence on renal dialysis; Z99.2 - Dependence on renal dialysis; Z99.2 - Dependence on renal dialysis; Z99.2 - Dependence on renal dialysis (8) History of endocarditis Assessment/Plan: -blood cultures TD Code(s): Z86.79 - PERSONAL HISTORY OF OTHER DISEASES OF THE CIRCULATORY SYSTEM
[2017-09-12] MEDS: FLUTICASONE PROP 0.05% 16 GM NASAL SPRAY NS SCH (14:03)
[2017-09-12] MEDS: DONEPEZIL HCL 5 MG TABLET (FP) PO SCH ×2 (14:03→21:19)
[2017-09-12] MEDS: FOLIC ACID 1 MG TABLET (FP) PO SCH (14:03)
[2017-09-12] MEDS: HEPARIN NA (PORCINE) 5,000 UNITS/ML 1ML VIAL SQ SCH ×2 (14:03→21:19)
[2017-09-12] MEDS: ASCORBIC ACID 500 MG TABLET (FP) PO SCH ×2 (14:04→21:19)
[2017-09-12] MEDS: CYANOCOBALAMIN 1,000 MCG TABLET (FP) PO SCH (14:04)
[2017-09-12] MEDS: VITAMIN B COMP W-C 1 EA TABLET PO SCH (14:04)
[2017-09-12] MEDS: CLOPIDOGREL BISULFATE 75 MG TABLET (FP) PO SCH (14:04)
[2017-09-12] MEDS: amLODIPine BESYLATE 10 MG TABLET (FP) PO SCH (14:04)
--- NOTE | 2017-09-12 14:43 | PN ---
Progress Note, Physician History of Present Illness: Pt seen and examined at bedside. She tolerated HD. She appears comfortable. - Current Medication List Current Medications: Active Medications Acetaminophen (Tylenol -) 650 mg PO Q4H PRN PRN Reason: PAIN LEVEL 1-5 Amlodipine Besylate (Norvasc -) 10 mg PO DAILY [facility] Last Admin: 09/12/17 14:04 Dose: Not Given Ascorbic Acid (Vitamin C -) 500 mg PO BID [facility] Last Admin: 09/12/17 14:04 Dose: Not Given Atorvastatin Calcium (Lipitor -) 20 mg PO HS [facility] Last Admin: 09/11/17 21:01 Dose: 20 mg Clonidine HCl (Catapres Tts Patch -) 0.2 mg TD Q7D@1000 [facility] Clopidogrel Bisulfate (Plavix -) 75 mg PO DAILY [facility] Last Admin: 09/12/17 14:04 Dose: Not Given Cyanocobalamin (Vitamin B12 -) 1,000 mcg PO DAILY [facility] Last Admin: 09/12/17 14:04 Dose: Not Given Donepezil HCl (Aricept -) 5 mg PO BID [facility] Last Admin: 09/12/17 14:03 Dose: Not Given Ferrous Sulfate (Feosol -) 325 mg PO BIDWM [facility] Last Admin: 09/12/17 08:59 Dose: Not Given Fluticasone Propionate (Flonase -) 2 spray NS DAILY [facility] Last Admin: 09/12/17 14:03 Dose: Not Given Folic Acid (Folic Acid -) 1 mg PO DAILY [facility] Last Admin: 09/12/17 14:03 Dose: Not Given Heparin Sodium (Porcine) (Heparin -) 5,000 unit SQ BID [facility] Last Admin: 09/12/17 14:03 Dose: Not Given Hydralazine HCl (Apresoline -) 50 mg PO TID [facility] Last Admin: 09/12/17 14:04 Dose: Not Given Sodium Chloride (Normal Saline -) 250 mls @ 3,000 mls/hr IV PRN PRN PRN Reason: Hypotension during Dialysis Stop: 09/12/17 16:32 Insulin Aspart (Novolog Vial Sliding Scale -) 1 vial SQ ACHS [facility] PRN Reason: Protocol Last Admin: 09/12/17 14:04 Dose: Not Given Labetalol HCl (Normodyne -) 400 mg PO TID [facility] Last Admin: 09/12/17 14:04 Dose: Not Given Multivit/Ca Carb/B Cmplx/FA/Prenat (Nephro-Don -) 1 tablet PO DAILY [facility] Last Admin: 09/12/17 14:04 Dose: Not Given Ondansetron HCl (Zofran Injection) 4 mg IVPUSH Q6H PRN PRN Reason: NAUSEA Sitagliptin Phosphate (Januvia -) 25 mg PO DAILY@0700 [facility] Last Admin: 09/12/17 06:13 Dose: Not Given - Objective Vital Signs: Vital Signs Temperature 98.3 F 09/12/17 14:22 Pulse Rate 104 H 09/12/17 14:22 Respiratory Rate 18 09/12/17 14:22 Blood Pressure 124/67 09/12/17 14:22 O2 Sat by Pulse Oximetry (%) 98 09/12/17 09:00 Constitutional: Yes: Calm Eyes: Yes: Conjunctiva Clear HENT: Yes: Atraumatic Neck: Yes: Supple Cardiovascular: Yes: S1, S2 Respiratory: Yes: CTA Bilaterally Gastrointestinal: Yes: Normal Bowel Sounds, Soft Genitourinary: Yes: WNL Musculoskeletal: Yes: WNL Edema: No Neurological: Yes: Oriented Psychiatric: Yes: Oriented Labs: CBC, BMP 09/12/17 06:00 09/12/17 06:00 INR, PTT INR 0.89 (0.82-1.09) 09/07/17 07:58 Problem List - Problems (1) Chronic kidney failure Code(s): N18.9 - CHRONIC KIDNEY DISEASE, UNSPECIFIED Qualifiers: Chronic kidney disease stage: unspecified stage Qualified Code(s): N18.9 - Chronic kidney disease, unspecified (2) Uremia Code(s): N19 - UNSPECIFIED KIDNEY FAILURE Assessment/Plan Current Medications Generic Name Dose Route Start Last Admin Trade Name Freq PRN Reason Stop Dose Admin Acetaminophen 650 mg 09/07/17 19:00 Tylenol - PO Q4H PRN PAIN LEVEL 1-5 Amlodipine Besylate 10 mg 09/08/17 10:00 09/12/17 14:04 Norvasc - PO Not Given DAILY [facility] Ascorbic Acid 500 mg 09/07/17 22:00 09/12/17 14:04 Vitamin C - PO Not Given BID [facility] Atorvastatin Calcium 20 mg 09/07/17 22:00 09/11/17 21:01 Lipitor - PO 20 mg HS [facility] Administration Clonidine HCl 0.2 mg 09/14/17 10:00 Catapres Tts Patch - TD Q7D@1000 [facility] Clopidogrel Bisulfate 75 mg 09/08/17 10:00 09/12/17 14:04 Plavix - PO Not Given DAILY [facility] Cyanocobalamin 1,000 mcg 09/08/17 10:00 09/12/17 14:04 Vitamin B12 - PO Not Given DAILY [facility] Donepezil HCl 5 mg 09/07/17 22:00 09/12/17 14:03 Aricept - PO Not Given BID [facility] Ferrous Sulfate 325 mg 09/08/17 08:00 09/12/17 08:59 Feosol - PO Not Given BIDWM [facility] Fluticasone Propionate 2 spray 09/08/17 10:00 09/12/17 14:03 Flonase - NS Not Given DAILY [facility] Folic Acid 1 mg 09/08/17 10:00 09/12/17 14:03 Folic Acid - PO Not Given DAILY [facility] Heparin Sodium (Porcine) 5,000 unit 09/07/17 22:00 09/12/17 14:03 Heparin - SQ Not Given BID [facility] Hydralazine HCl 50 mg 09/07/17 22:00 09/12/17 14:04 Apresoline - PO Not Given TID [facility] Sodium Chloride 250 mls @ 3,000 mls/hr 09/11/17 16:32 Normal Saline - IV 09/12/17 16:32 PRN PRN Hypotension during Dialysis Insulin Aspart 1 vial 09/07/17 22:00 09/12/17 14:04 Novolog Vial Sliding Scale - SQ Not Given ACHS [facility] Protocol Labetalol HCl 400 mg 09/07/17 22:00 09/12/17 14:04 Normodyne - PO Not Given TID [facility] Multivit/Ca Carb/B Cmplx/FA/Prenat 1 tablet 09/08/17 10:00 09/12/17 14:04 Nephro-Don - PO Not Given DAILY [facility] Ondansetron HCl 4 mg 09/07/17 19:00 Zofran Injection IVPUSH Q6H PRN NAUSEA Sitagliptin Phosphate 25 mg 09/08/17 07:00 09/12/17 06:13 Januvia - PO Not Given DAILY@0700 [facility] Impression 1. ESRD 2. uremia 3. anemia 4. HTN 5. HLD 6. DM 7. hx endocarditis 8. GERD Plan - HD today - cont current meds - monitor BP - encourage PO intake - pt still need placement for HD - will need AV fistula - will follow Dr Barron
[2017-09-12] MEDS ORDERED: INSULIN (NOVOLOG) ASPART 100 UNITS/ML 10ML VIAL ONE (20:59)
[2017-09-12] MEDS: ATORVASTATIN CA 20 MG TABLET (FP) PO SCH (21:19)
[2017-09-13] MEDS ORDERED: INSULIN (NOVOLOG) ASPART 100 UNITS/ML 10ML VIAL ONE (07:01)
[2017-09-13] MEDS: LABETALOL HCL 200 MG TABLET (FP) PO SCH ×3 (07:12→23:09)
[2017-09-13] MEDS: sitaGLIPtin PHOSPHATE 25 MG TABLET (FP) PO SCH (07:13)
[2017-09-13] MEDS: INSULIN SLIDING SCALE (NOVOLOG) 1 VIAL SQ SCH ×4 (07:13→23:08)
[2017-09-13] MEDS: hydrALAZINE HCL 50 MG TABLET (FP) PO SCH ×3 (07:13→23:06)
[2017-09-13] MEDS: FERROUS SO4 325 MG TABLET (FP) PO SCH ×2 (08:36→18:22)
[2017-09-13] MEDS: FLUTICASONE PROP 0.05% 16 GM NASAL SPRAY NS SCH (09:50)
[2017-09-13] MEDS: CLOPIDOGREL BISULFATE 75 MG TABLET (FP) PO SCH (09:51)
[2017-09-13] MEDS: FOLIC ACID 1 MG TABLET (FP) PO SCH (09:51)
[2017-09-13] MEDS: VITAMIN B COMP W-C 1 EA TABLET PO SCH (09:51)
[2017-09-13] MEDS: DONEPEZIL HCL 5 MG TABLET (FP) PO SCH ×2 (09:51→23:07)
[2017-09-13] MEDS: amLODIPine BESYLATE 10 MG TABLET (FP) PO SCH (09:51)
[2017-09-13] MEDS: HEPARIN NA (PORCINE) 5,000 UNITS/ML 1ML VIAL SQ SCH ×2 (09:52→23:07)
[2017-09-13] MEDS: ASCORBIC ACID 500 MG TABLET (FP) PO SCH ×2 (09:52→23:08)
[2017-09-13] MEDS: CYANOCOBALAMIN 1,000 MCG TABLET (FP) PO SCH (09:52)
--- NOTE | 2017-09-13 12:44 | PN ---
Progress Note, Physician Chief Complaint: Ms Medina Monday does not respond to my questions today. - Current Medication List Current Medications: Active Medications Acetaminophen (Tylenol -) 650 mg PO Q4H PRN PRN Reason: PAIN LEVEL 1-5 Amlodipine Besylate (Norvasc -) 10 mg PO DAILY [facility] Last Admin: 09/13/17 09:51 Dose: 10 mg Ascorbic Acid (Vitamin C -) 500 mg PO BID [facility] Last Admin: 09/13/17 09:52 Dose: 500 mg Atorvastatin Calcium (Lipitor -) 20 mg PO HS [facility] Last Admin: 09/12/17 21:19 Dose: 20 mg Clonidine HCl (Catapres Tts Patch -) 0.2 mg TD Q7D@1000 [facility] Clopidogrel Bisulfate (Plavix -) 75 mg PO DAILY [facility] Last Admin: 09/13/17 09:51 Dose: 75 mg Cyanocobalamin (Vitamin B12 -) 1,000 mcg PO DAILY [facility] Last Admin: 09/13/17 09:52 Dose: 1,000 mcg Donepezil HCl (Aricept -) 5 mg PO BID [facility] Last Admin: 09/13/17 09:51 Dose: 5 mg Ferrous Sulfate (Feosol -) 325 mg PO BIDWM [facility] Last Admin: 09/13/17 08:36 Dose: 325 mg Fluticasone Propionate (Flonase -) 2 spray NS DAILY [facility] Last Admin: 09/13/17 09:50 Dose: 2 sprays Folic Acid (Folic Acid -) 1 mg PO DAILY [facility] Last Admin: 09/13/17 09:51 Dose: 1 mg Heparin Sodium (Porcine) (Heparin -) 5,000 unit SQ BID [facility] Last Admin: 09/13/17 09:52 Dose: 5,000 unit Hydralazine HCl (Apresoline -) 50 mg PO TID [facility] Last Admin: 09/13/17 07:13 Dose: 50 mg Insulin Aspart (Novolog Vial Sliding Scale -) 1 vial SQ ACHS [facility] PRN Reason: Protocol Last Admin: 09/13/17 07:13 Dose: Not Given Labetalol HCl (Normodyne -) 400 mg PO TID [facility] Last Admin: 09/13/17 07:12 Dose: 400 mg Multivit/Ca Carb/B Cmplx/FA/Prenat (Nephro-Don -) 1 tablet PO DAILY [facility] Last Admin: 09/13/17 09:51 Dose: 1 tablet Ondansetron HCl (Zofran Injection) 4 mg IVPUSH Q6H PRN PRN Reason: NAUSEA Sitagliptin Phosphate (Januvia -) 25 mg PO DAILY@0700 [facility] Last Admin: 09/13/17 07:13 Dose: 25 mg - Objective Vital Signs: Vital Signs Temperature 37.6 C 09/13/17 10:00 Pulse Rate 98 H 09/13/17 10:00 Respiratory Rate 20 09/13/17 10:00 Blood Pressure 105/51 09/13/17 10:00 O2 Sat by Pulse Oximetry (%) 95 09/13/17 09:00 Constitutional: Yes: No Distress, Calm, Thin Cardiovascular: Yes: Regular Rate and Rhythm. No: Gallop, Murmur, Rub Respiratory: Yes: Regular, CTA Bilaterally. No: Rales, Rhonchi, Wheezes Gastrointestinal: Yes: Normal Bowel Sounds, Soft. No: Distention, Tenderness Extremities: Yes: WNL Edema: No Labs: CBC, BMP 09/12/17 06:00 09/12/17 06:00 INR, PTT INR 0.89 (0.82-1.09) 09/07/17 07:58 Problem List - Problems (1) ESRD (end stage renal disease) Code(s): N18.6 - END STAGE RENAL DISEASE (2) Metabolic encephalopathy Code(s): G93.41 - METABOLIC ENCEPHALOPATHY (3) HTN (hypertension) Code(s): I10 - ESSENTIAL (PRIMARY) HYPERTENSION (4) Diabetes Code(s): E11.9 - TYPE 2 DIABETES MELLITUS WITHOUT COMPLICATIONS (5) History of CVA (cerebrovascular accident) Code(s): Z86.73 - PRSNL HX OF TIA (TIA), AND CEREB INFRC W/O RESID DEFICITS (6) CAD (coronary artery disease) Code(s): I25.10 - ATHSCL HEART DISEASE OF [place] CORONARY ARTERY W/O ANG PCTRS (7) Anemia Code(s): D64.9 - ANEMIA, UNSPECIFIED Qualifiers: Anemia type: due to chronic kidney disease Chronic kidney disease stage: on chronic dialysis Qualified Code(s): N18.6 - End stage renal disease; D63.1 - Anemia in chronic kidney disease; D63.1 - Anemia in chronic kidney disease; Z99.2 - Dependence on renal dialysis; Z99.2 - Dependence on renal dialysis; Z99.2 - Dependence on renal dialysis; Z99.2 - Dependence on renal dialysis (8) History of endocarditis Code(s): Z86.79 - PERSONAL HISTORY OF OTHER DISEASES OF THE CIRCULATORY SYSTEM Assessment/Plan (1) ESRD (end stage renal disease) Assessment/Plan: -plan for HD tomorrow -needs placement for HD Code(s): N18.6 - END STAGE RENAL DISEASE (2) Metabolic encephalopathy Assessment/Plan: -continue HD Code(s): G93.41 - METABOLIC ENCEPHALOPATHY (3) HTN (hypertension) Assessment/Plan: -continue hydralazine, clonidine patch, labetolol, and norvasc -low normal -may need to decrease or stop if remains low Code(s): I10 - ESSENTIAL (PRIMARY) HYPERTENSION (4) Diabetes Assessment/Plan: -diabetic diet -continue januvia, renally dosed -FSBS and SSI Code(s): E11.9 - TYPE 2 DIABETES MELLITUS WITHOUT COMPLICATIONS (5) History of CVA (cerebrovascular accident) Assessment/Plan: -continue plavix Code(s): Z86.73 - PRSNL HX OF TIA (TIA), AND CEREB INFRC W/O RESID DEFICITS (6) CAD (coronary artery disease) Assessment/Plan: -quiescent -continue home regimen Code(s): I25.10 - ATHSCL HEART DISEASE OF [place] CORONARY ARTERY W/O ANG PCTRS (7) Anemia Assessment/Plan: -monitor -no need for transfusion -continue iron Code(s): D64.9 - ANEMIA, UNSPECIFIED Qualifiers: Anemia type: due to chronic kidney disease Chronic kidney disease stage: on chronic dialysis Qualified Code(s): N18.6 - End stage renal disease; D63.1 - Anemia in chronic kidney disease; D63.1 - Anemia in chronic kidney disease; Z99.2 - Dependence on renal dialysis; Z99.2 - Dependence on renal dialysis; Z99.2 - Dependence on renal dialysis; Z99.2 - Dependence on renal dialysis (8) History of endocarditis Assessment/Plan: -blood cultures NGTD Code(s): Z86.79 - PERSONAL HISTORY OF OTHER DISEASES OF THE CIRCULATORY SYSTEM
--- NOTE | 2017-09-13 13:25 | PN ---
Progress Note, Physician History of Present Illness: Pt seen and examined at bedside. She is awake and appears comfortable. - Current Medication List Current Medications: Active Medications Acetaminophen (Tylenol -) 650 mg PO Q4H PRN PRN Reason: PAIN LEVEL 1-5 Amlodipine Besylate (Norvasc -) 10 mg PO DAILY [facility] Last Admin: 09/13/17 09:51 Dose: 10 mg Ascorbic Acid (Vitamin C -) 500 mg PO BID [facility] Last Admin: 09/13/17 09:52 Dose: 500 mg Atorvastatin Calcium (Lipitor -) 20 mg PO HS [facility] Last Admin: 09/12/17 21:19 Dose: 20 mg Clonidine HCl (Catapres Tts Patch -) 0.2 mg TD Q7D@1000 [facility] Clopidogrel Bisulfate (Plavix -) 75 mg PO DAILY [facility] Last Admin: 09/13/17 09:51 Dose: 75 mg Cyanocobalamin (Vitamin B12 -) 1,000 mcg PO DAILY [facility] Last Admin: 09/13/17 09:52 Dose: 1,000 mcg Donepezil HCl (Aricept -) 5 mg PO BID [facility] Last Admin: 09/13/17 09:51 Dose: 5 mg Ferrous Sulfate (Feosol -) 325 mg PO BIDWM [facility] Last Admin: 09/13/17 08:36 Dose: 325 mg Fluticasone Propionate (Flonase -) 2 spray NS DAILY [facility] Last Admin: 09/13/17 09:50 Dose: 2 sprays Folic Acid (Folic Acid -) 1 mg PO DAILY [facility] Last Admin: 09/13/17 09:51 Dose: 1 mg Heparin Sodium (Porcine) (Heparin -) 5,000 unit SQ BID [facility] Last Admin: 09/13/17 09:52 Dose: 5,000 unit Hydralazine HCl (Apresoline -) 50 mg PO TID [facility] Last Admin: 09/13/17 07:13 Dose: 50 mg Insulin Aspart (Novolog Vial Sliding Scale -) 1 vial SQ ACHS [facility] PRN Reason: Protocol Last Admin: 09/13/17 07:13 Dose: Not Given Labetalol HCl (Normodyne -) 400 mg PO TID [facility] Last Admin: 09/13/17 07:12 Dose: 400 mg Multivit/Ca Carb/B Cmplx/FA/Prenat (Nephro-Don -) 1 tablet PO DAILY [facility] Last Admin: 09/13/17 09:51 Dose: 1 tablet Ondansetron HCl (Zofran Injection) 4 mg IVPUSH Q6H PRN PRN Reason: NAUSEA Sitagliptin Phosphate (Januvia -) 25 mg PO DAILY@0700 [facility] Last Admin: 09/13/17 07:13 Dose: 25 mg - Objective Vital Signs: Vital Signs Temperature 99.6 F 09/13/17 10:00 Pulse Rate 98 H 09/13/17 10:00 Respiratory Rate 20 09/13/17 10:00 Blood Pressure 105/51 09/13/17 10:00 O2 Sat by Pulse Oximetry (%) 95 09/13/17 09:00 Constitutional: Yes: Calm Eyes: Yes: Conjunctiva Clear HENT: Yes: Atraumatic Cardiovascular: Yes: S1, S2 Respiratory: Yes: CTA Bilaterally Gastrointestinal: Yes: Normal Bowel Sounds, Soft Genitourinary: Yes: Incontinence Musculoskeletal: Yes: WNL Edema: No Neurological: Yes: Confusion Labs: CBC, BMP 09/12/17 06:00 09/12/17 06:00 INR, PTT INR 0.89 (0.82-1.09) 09/07/17 07:58 Problem List - Problems (1) Chronic kidney failure Code(s): N18.9 - CHRONIC KIDNEY DISEASE, UNSPECIFIED Qualifiers: Chronic kidney disease stage: unspecified stage Qualified Code(s): N18.9 - Chronic kidney disease, unspecified (2) Uremia Code(s): N19 - UNSPECIFIED KIDNEY FAILURE Assessment/Plan Current Medications Generic Name Dose Route Start Last Admin Trade Name Freq PRN Reason Stop Dose Admin Acetaminophen 650 mg 09/07/17 19:00 Tylenol - PO Q4H PRN PAIN LEVEL 1-5 Amlodipine Besylate 10 mg 09/08/17 10:00 09/13/17 09:51 Norvasc - PO 10 mg DAILY [facility] Administration Ascorbic Acid 500 mg 09/07/17 22:00 09/13/17 09:52 Vitamin C - PO 500 mg BID [facility] Administration Atorvastatin Calcium 20 mg 09/07/17 22:00 09/12/17 21:19 Lipitor - PO 20 mg HS [facility] Administration Clonidine HCl 0.2 mg 09/14/17 10:00 Catapres Tts Patch - TD Q7D@1000 [facility] Clopidogrel Bisulfate 75 mg 09/08/17 10:00 09/13/17 09:51 Plavix - PO 75 mg DAILY [facility] Administration Cyanocobalamin 1,000 mcg 09/08/17 10:00 09/13/17 09:52 Vitamin B12 - PO 1,000 mcg DAILY [facility] Administration Donepezil HCl 5 mg 09/07/17 22:00 09/13/17 09:51 Aricept - PO 5 mg BID [facility] Administration Ferrous Sulfate 325 mg 09/08/17 08:00 09/13/17 08:36 Feosol - PO 325 mg BIDWM [facility] Administration Fluticasone Propionate 2 spray 09/08/17 10:00 09/13/17 09:50 Flonase - NS 2 sprays DAILY [facility] Administration Folic Acid 1 mg 09/08/17 10:00 09/13/17 09:51 Folic Acid - PO 1 mg DAILY [facility] Administration Heparin Sodium (Porcine) 5,000 unit 09/07/17 22:00 09/13/17 09:52 Heparin - SQ 5,000 unit BID [facility] Administration Hydralazine HCl 50 mg 09/07/17 22:00 09/13/17 07:13 Apresoline - PO 50 mg TID [facility] Administration Insulin Aspart 1 vial 09/07/17 22:00 09/13/17 07:13 Novolog Vial Sliding Scale - SQ Not Given ACHS [facility] Protocol Labetalol HCl 400 mg 09/07/17 22:00 09/13/17 07:12 Normodyne - PO 400 mg TID [facility] Administration Multivit/Ca Carb/B Cmplx/FA/Prenat 1 tablet 09/08/17 10:00 09/13/17 09:51 Nephro-Don - PO 1 tablet DAILY [facility] Administration Ondansetron HCl 4 mg 09/07/17 19:00 Zofran Injection IVPUSH Q6H PRN NAUSEA Sitagliptin Phosphate 25 mg 09/08/17 07:00 09/13/17 07:13 Januvia - PO 25 mg DAILY@0700 [facility] Administration Impression 1. ESRD 2. uremia 3. anemia 4. HTN 5. HLD 6. DM 7. hx endocarditis 8. GERD Plan - HD in am - pending placement, discussed with case management - will need fistula as outpt - blood cultures are negative - encourage PO intake - will follow Dr Barron
[2017-09-13] MEDS: ATORVASTATIN CA 20 MG TABLET (FP) PO SCH (23:09)
[2017-09-14] MEDS: sitaGLIPtin PHOSPHATE 25 MG TABLET (FP) PO SCH (06:26)
[2017-09-14] MEDS: INSULIN SLIDING SCALE (NOVOLOG) 1 VIAL SQ SCH (06:26)
[2017-09-14] MEDS: hydrALAZINE HCL 50 MG TABLET (FP) PO SCH ×3 (06:26→21:46)
[2017-09-14] MEDS: LABETALOL HCL 200 MG TABLET (FP) PO SCH ×3 (06:26→21:47)
[2017-09-14] MEDS: VITAMIN B COMP W-C 1 EA TABLET PO SCH (09:30)
[2017-09-14] MEDS: ASCORBIC ACID 500 MG TABLET (FP) PO SCH ×2 (09:30→21:46)
[2017-09-14] MEDS: FERROUS SO4 325 MG TABLET (FP) PO SCH ×2 (09:30→19:21)
[2017-09-14] MEDS: DONEPEZIL HCL 5 MG TABLET (FP) PO SCH ×2 (09:30→21:47)
[2017-09-14] MEDS: CYANOCOBALAMIN 1,000 MCG TABLET (FP) PO SCH (09:30)
[2017-09-14] MEDS: CLOPIDOGREL BISULFATE 75 MG TABLET (FP) PO SCH (09:30)
[2017-09-14] MEDS: amLODIPine BESYLATE 10 MG TABLET (FP) PO SCH (09:30)
[2017-09-14] MEDS: FLUTICASONE PROP 0.05% 16 GM NASAL SPRAY NS SCH (09:30)
[2017-09-14] MEDS ORDERED: SODIUM CHLORIDE 250 ML IV ONE (10:00)
[2017-09-14] MEDS ORDERED: EPOETIN ALFA 3,000 UNIT/1 ML ML IVPUSH ONE (10:00)
[2017-09-14] MEDS ORDERED: cloNIDine-TTS 0.2 MG/24 HOURS PATCH.TDWK TD SCH ×2 (10:00)
[2017-09-14 11:21] LABS: BASO % 0.6 % (0-2.0); EOS % 2.1 % (0-4.5); HEMATOCRIT 23.9 % (32.4-45.2); HEMOGLOBIN 7.8 GM/dL (10.7-15.3); LYMPH % 15.5 % (8-40); MCH 25.3 pg (25.7-33.7); MCHC 32.8 g/dl (32.0-36.0); MEAN CELL VOLUME 77.2 fl (80-96); MONO % 7.2 % (3.8-10.2); NEUT % 74.6 % (42.8-82.8); PLATELET COUNT 180 K/MM3 (134-434); RDW 19.6 % (11.6-15.6); WHITE BLOOD COUNT 7.1 K/mm3 (4.0-10.0)
[2017-09-14 11:36] LABS: ANION GAP 8 (8-16); BLOOD UREA NITROGEN 37 mg/dL (7-18); CHLORIDE 104 mmol/L (98-107); CO2 29 mmol/L (21-32); CREATININE 5.8 mg/dL (0.55-1.02); GLUCOSE,RANDOM 119 mg/dL (74-106); MAGNESIUM 1.7 mg/dL (1.8-2.4); PHOSPHOROUS 2.5 mg/dL (2.5-4.9); POTASSIUM 3.8 mmol/L (3.5-5.1); SODIUM 141 mmol/L (136-145)
[2017-09-14] MEDS ORDERED: EPOETIN ALFA 2,000 UNIT/1 ML VIAL IVPUSH ONE (12:00)
--- NOTE | 2017-09-14 13:39 | PN ---
Progress Note, Physician History of Present Illness: Pt seen and examined at bedside. She is currently getting HD. - Current Medication List Current Medications: Active Medications Acetaminophen (Tylenol -) 650 mg PO Q4H PRN PRN Reason: PAIN LEVEL 1-5 Amlodipine Besylate (Norvasc -) 10 mg PO DAILY [facility] Last Admin: 09/13/17 09:51 Dose: 10 mg Ascorbic Acid (Vitamin C -) 500 mg PO BID [facility] Last Admin: 09/14/17 09:30 Dose: 500 mg Atorvastatin Calcium (Lipitor -) 20 mg PO HS [facility] Last Admin: 09/13/17 23:09 Dose: 20 mg Clonidine HCl (Catapres Tts Patch -) 0.2 mg TD Q7D@1000 [facility] Clopidogrel Bisulfate (Plavix -) 75 mg PO DAILY [facility] Last Admin: 09/14/17 09:30 Dose: 75 mg Cyanocobalamin (Vitamin B12 -) 1,000 mcg PO DAILY [facility] Last Admin: 09/14/17 09:30 Dose: 1,000 mcg Donepezil HCl (Aricept -) 5 mg PO BID [facility] Last Admin: 09/14/17 09:30 Dose: 5 mg Ferrous Sulfate (Feosol -) 325 mg PO BIDWM [facility] Last Admin: 09/14/17 09:30 Dose: 325 mg Fluticasone Propionate (Flonase -) 2 spray NS DAILY [facility] Last Admin: 09/13/17 09:50 Dose: 2 sprays Folic Acid (Folic Acid -) 1 mg PO DAILY [facility] Last Admin: 09/13/17 09:51 Dose: 1 mg Heparin Sodium (Porcine) (Heparin -) 5,000 unit SQ BID [facility] Last Admin: 09/13/17 23:07 Dose: 5,000 unit Hydralazine HCl (Apresoline -) 50 mg PO TID [facility] Last Admin: 09/14/17 06:26 Dose: 50 mg Labetalol HCl (Normodyne -) 400 mg PO TID [facility] Last Admin: 09/14/17 06:26 Dose: 400 mg Multivit/Ca Carb/B Cmplx/FA/Prenat (Nephro-Don -) 1 tablet PO DAILY [facility] Last Admin: 09/14/17 09:30 Dose: 1 tablet Ondansetron HCl (Zofran Injection) 4 mg IVPUSH Q6H PRN PRN Reason: NAUSEA Sitagliptin Phosphate (Januvia -) 25 mg PO DAILY@0700 [facility] Last Admin: 09/14/17 06:26 Dose: Not Given - Objective Vital Signs: Vital Signs Temperature 97.8 F 09/14/17 10:25 Pulse Rate 99 H 09/14/17 13:00 Respiratory Rate 18 09/14/17 13:00 Blood Pressure 139/71 09/14/17 13:00 O2 Sat by Pulse Oximetry (%) 94 L 09/13/17 21:00 Constitutional: Yes: Calm Eyes: Yes: Conjunctiva Clear HENT: Yes: Atraumatic Neck: Yes: Supple Cardiovascular: Yes: S1, S2 Respiratory: Yes: CTA Bilaterally Gastrointestinal: Yes: Soft Genitourinary: Yes: WNL Musculoskeletal: Yes: Muscle Weakness Edema: No Neurological: Yes: Confusion Labs: CBC, BMP 09/14/17 10:30 09/14/17 10:30 INR, PTT INR 0.89 (0.82-1.09) 09/07/17 07:58 Problem List - Problems (1) Chronic kidney failure Code(s): N18.9 - CHRONIC KIDNEY DISEASE, UNSPECIFIED Qualifiers: Chronic kidney disease stage: unspecified stage Qualified Code(s): N18.9 - Chronic kidney disease, unspecified (2) Uremia Code(s): N19 - UNSPECIFIED KIDNEY FAILURE Assessment/Plan Current Medications Generic Name Dose Route Start Last Admin Trade Name Freq PRN Reason Stop Dose Admin Acetaminophen 650 mg 09/07/17 19:00 Tylenol - PO Q4H PRN PAIN LEVEL 1-5 Amlodipine Besylate 10 mg 09/08/17 10:00 09/13/17 09:51 Norvasc - PO 10 mg DAILY [facility] Administration Ascorbic Acid 500 mg 09/07/17 22:00 09/14/17 09:30 Vitamin C - PO 500 mg BID RY Administration Atorvastatin Calcium 20 mg 09/07/17 22:00 09/13/17 23:09 Lipitor - PO 20 mg HS [facility]Y Administration Clonidine HCl 0.2 mg 09/14/17 10:00 Catapres Tts Patch - TD Q7D@1000 [facility] Clopidogrel Bisulfate 75 mg 09/08/17 10:00 09/14/17 09:30 Plavix - PO 75 mg DAILY [facility] Administration Cyanocobalamin 1,000 mcg 09/08/17 10:00 09/14/17 09:30 Vitamin B12 - PO 1,000 mcg DAILY [facility] Administration Donepezil HCl 5 mg 09/07/17 22:00 09/14/17 09:30 Aricept - PO 5 mg BID RY Administration Ferrous Sulfate 325 mg 09/08/17 08:00 09/14/17 09:30 Feosol - PO 325 mg BIDWM RY Administration Fluticasone Propionate 2 spray 09/08/17 10:00 09/13/17 09:50 Flonase - NS 2 sprays DAILY [facility] Administration Folic Acid 1 mg 09/08/17 10:00 09/13/17 09:51 Folic Acid - PO 1 mg DAILY [facility] Administration Heparin Sodium (Porcine) 5,000 unit 09/07/17 22:00 09/13/17 23:07 Heparin - SQ 5,000 unit BID [facility] Administration Hydralazine HCl 50 mg 09/07/17 22:00 09/14/17 06:26 Apresoline - PO 50 mg TID RY Administration Labetalol HCl 400 mg 09/07/17 22:00 09/14/17 06:26 Normodyne - PO 400 mg TID RY Administration Multivit/Ca Carb/B Cmplx/FA/Prenat 1 tablet 09/08/17 10:00 09/14/17 09:30 Nephro-Don - PO 1 tablet DAILY [facility] Administration Ondansetron HCl 4 mg 09/07/17 19:00 Zofran Injection IVPUSH Q6H PRN NAUSEA Sitagliptin Phosphate 25 mg 09/08/17 07:00 09/14/17 06:26 Januvia - PO Not Given DAILY@0700 [facility] Impression 1. ESRD 2. uremia 3. anemia 4. HTN 5. HLD 6. DM 7. hx endocarditis 8. GERD Plan - HD today - pending placement in HD - vascular follow up as outpt - blood cultures are negative - encourage PO intake - will follow Dr Barron
--- NOTE | 2017-09-14 14:03 | PN ---
Progress Note, Physician Chief Complaint: Unable to obtain, patient with minimal interaction. - Current Medication List Current Medications: Active Medications Acetaminophen (Tylenol -) 650 mg PO Q4H PRN PRN Reason: PAIN LEVEL 1-5 Amlodipine Besylate (Norvasc -) 10 mg PO DAILY [facility] Last Admin: 09/13/17 09:51 Dose: 10 mg Ascorbic Acid (Vitamin C -) 500 mg PO BID [facility] Last Admin: 09/14/17 09:30 Dose: 500 mg Atorvastatin Calcium (Lipitor -) 20 mg PO HS [facility] Last Admin: 09/13/17 23:09 Dose: 20 mg Clonidine HCl (Catapres Tts Patch -) 0.2 mg TD Q7D@1000 [facility] Clopidogrel Bisulfate (Plavix -) 75 mg PO DAILY [facility] Last Admin: 09/14/17 09:30 Dose: 75 mg Cyanocobalamin (Vitamin B12 -) 1,000 mcg PO DAILY [facility] Last Admin: 09/14/17 09:30 Dose: 1,000 mcg Donepezil HCl (Aricept -) 5 mg PO BID [facility] Last Admin: 09/14/17 09:30 Dose: 5 mg Ferrous Sulfate (Feosol -) 325 mg PO BIDWM [facility] Last Admin: 09/14/17 09:30 Dose: 325 mg Fluticasone Propionate (Flonase -) 2 spray NS DAILY [facility] Last Admin: 09/13/17 09:50 Dose: 2 sprays Folic Acid (Folic Acid -) 1 mg PO DAILY [facility] Last Admin: 09/13/17 09:51 Dose: 1 mg Heparin Sodium (Porcine) (Heparin -) 5,000 unit SQ BID [facility] Last Admin: 09/13/17 23:07 Dose: 5,000 unit Hydralazine HCl (Apresoline -) 50 mg PO TID [facility] Last Admin: 09/14/17 06:26 Dose: 50 mg Labetalol HCl (Normodyne -) 400 mg PO TID [facility] Last Admin: 09/14/17 06:26 Dose: 400 mg Multivit/Ca Carb/B Cmplx/FA/Prenat (Nephro-Don -) 1 tablet PO DAILY [facility] Last Admin: 09/14/17 09:30 Dose: 1 tablet Ondansetron HCl (Zofran Injection) 4 mg IVPUSH Q6H PRN PRN Reason: NAUSEA Sitagliptin Phosphate (Januvia -) 25 mg PO DAILY@0700 [facility] Last Admin: 09/14/17 06:26 Dose: Not Given - Objective Vital Signs: Vital Signs Temperature 36.6 C 09/14/17 10:25 Pulse Rate 98 H 09/14/17 13:42 Respiratory Rate 18 09/14/17 13:42 Blood Pressure 140/72 09/14/17 13:42 O2 Sat by Pulse Oximetry (%) 94 L 09/13/17 21:00 Constitutional: Yes: Well Nourished, No Distress, Calm Cardiovascular: Yes: Regular Rate and Rhythm. No: Gallop, Murmur, Rub Respiratory: Yes: Regular, CTA Bilaterally. No: Rales, Rhonchi, Wheezes Gastrointestinal: Yes: Normal Bowel Sounds, Soft. No: Distention, Tenderness Extremities: Yes: WNL Edema: No Labs: CBC, BMP 09/14/17 10:30 09/14/17 10:30 INR, PTT INR 0.89 (0.82-1.09) 09/07/17 07:58 Problem List - Problems (1) ESRD (end stage renal disease) Code(s): N18.6 - END STAGE RENAL DISEASE (2) Metabolic encephalopathy Code(s): G93.41 - METABOLIC ENCEPHALOPATHY (3) HTN (hypertension) Code(s): I10 - ESSENTIAL (PRIMARY) HYPERTENSION (4) Diabetes Code(s): E11.9 - TYPE 2 DIABETES MELLITUS WITHOUT COMPLICATIONS (5) History of CVA (cerebrovascular accident) Code(s): Z86.73 - PRSNL HX OF TIA (TIA), AND CEREB INFRC W/O RESID DEFICITS (6) CAD (coronary artery disease) Code(s): I25.10 - ATHSCL HEART DISEASE OF [place] CORONARY ARTERY W/O ANG PCTRS (7) Anemia Code(s): D64.9 - ANEMIA, UNSPECIFIED Qualifiers: Anemia type: due to chronic kidney disease Chronic kidney disease stage: on chronic dialysis Qualified Code(s): N18.6 - End stage renal disease; D63.1 - Anemia in chronic kidney disease; D63.1 - Anemia in chronic kidney disease; Z99.2 - Dependence on renal dialysis; Z99.2 - Dependence on renal dialysis; Z99.2 - Dependence on renal dialysis; Z99.2 - Dependence on renal dialysis (8) History of endocarditis Code(s): Z86.79 - PERSONAL HISTORY OF OTHER DISEASES OF THE CIRCULATORY SYSTEM Assessment/Plan (1) ESRD (end stage renal disease) Assessment/Plan: -HD today -establishing outpatient HD -per CM, will be established on Monday -can be discharged after HD on Monday Code(s): N18.6 - END STAGE RENAL DISEASE (2) Metabolic encephalopathy Assessment/Plan: -continue HD Code(s): G93.41 - METABOLIC ENCEPHALOPATHY (3) HTN (hypertension) Assessment/Plan: -continue hydralazine, clonidine patch, labetolol, and norvasc Code(s): I10 - ESSENTIAL (PRIMARY) HYPERTENSION (4) Diabetes Assessment/Plan: -diabetic diet -continue januvia, renally dosed -can stop FSBS and SSI Code(s): E11.9 - TYPE 2 DIABETES MELLITUS WITHOUT COMPLICATIONS (5) History of CVA (cerebrovascular accident) Assessment/Plan: -continue plavix Code(s): Z86.73 - PRSNL HX OF TIA (TIA), AND CEREB INFRC W/O RESID DEFICITS (6) CAD (coronary artery disease) Assessment/Plan: -quiescent -continue home regimen Code(s): I25.10 - ATHSCL HEART DISEASE OF [place] CORONARY ARTERY W/O ANG PCTRS (7) Anemia Assessment/Plan: -monitor -no need for transfusion -continue iron Code(s): D64.9 - ANEMIA, UNSPECIFIED Qualifiers: Anemia type: due to chronic kidney disease Chronic kidney disease stage: on chronic dialysis Qualified Code(s): N18.6 - End stage renal disease; D63.1 - Anemia in chronic kidney disease; D63.1 - Anemia in chronic kidney disease; Z99.2 - Dependence on renal dialysis; Z99.2 - Dependence on renal dialysis; Z99.2 - Dependence on renal dialysis; Z99.2 - Dependence on renal dialysis (8) History of endocarditis Assessment/Plan: -blood cultures NGTD Code(s): Z86.79 - PERSONAL HISTORY OF OTHER DISEASES OF THE CIRCULATORY SYSTEM
[2017-09-14] MEDS: HEPARIN NA (PORCINE) 5,000 UNITS/ML 1ML VIAL SQ SCH (14:06)
[2017-09-14] MEDS: FOLIC ACID 1 MG TABLET (FP) PO SCH (14:06)
[2017-09-14] MEDS ORDERED: PT OWN MED DRAWER 7, Y5N ONE (17:55)
[2017-09-14] MEDS: ATORVASTATIN CA 20 MG TABLET (FP) PO SCH (21:47)
[2017-09-15] MEDS: hydrALAZINE HCL 50 MG TABLET (FP) PO SCH ×3 (06:03→22:31)
[2017-09-15] MEDS: LABETALOL HCL 200 MG TABLET (FP) PO SCH ×3 (06:03→22:31)
[2017-09-15] MEDS: sitaGLIPtin PHOSPHATE 25 MG TABLET (FP) PO SCH (06:06)
[2017-09-15] MEDS: ASCORBIC ACID 500 MG TABLET (FP) PO SCH ×2 (09:04→22:31)
[2017-09-15] MEDS: CYANOCOBALAMIN 1,000 MCG TABLET (FP) PO SCH (09:04)
[2017-09-15] MEDS: DONEPEZIL HCL 5 MG TABLET (FP) PO SCH ×2 (09:04→22:31)
[2017-09-15] MEDS: VITAMIN B COMP W-C 1 EA TABLET PO SCH (09:04)
[2017-09-15] MEDS: amLODIPine BESYLATE 10 MG TABLET (FP) PO SCH (09:04)
[2017-09-15] MEDS: FOLIC ACID 1 MG TABLET (FP) PO SCH (09:04)
[2017-09-15] MEDS: FERROUS SO4 325 MG TABLET (FP) PO SCH ×2 (09:04→17:29)
[2017-09-15] MEDS: CLOPIDOGREL BISULFATE 75 MG TABLET (FP) PO SCH (09:05)
[2017-09-15] MEDS: FLUTICASONE PROP 0.05% 16 GM NASAL SPRAY NS SCH (09:07)
[2017-09-15] MEDS ORDERED: LIDOCAINE HCL 1%, 10 MG/ML (20ML VIAL) ONE (11:22)
--- NOTE | 2017-09-15 12:30 | PN ---
Progress Note, Physician Chief Complaint: Patient more interactive today. Denies cp, sob, n/v. - Current Medication List Current Medications: Active Medications Acetaminophen (Tylenol -) 650 mg PO Q4H PRN PRN Reason: PAIN LEVEL 1-5 Amlodipine Besylate (Norvasc -) 10 mg PO DAILY [facility] Last Admin: 09/15/17 09:04 Dose: 10 mg Ascorbic Acid (Vitamin C -) 500 mg PO BID [facility] Last Admin: 09/15/17 09:04 Dose: 500 mg Atorvastatin Calcium (Lipitor -) 20 mg PO HS [facility] Last Admin: 09/14/17 21:47 Dose: 20 mg Clonidine HCl (Catapres Tts Patch -) 0.2 mg TD Q7D@1000 [facility] Last Admin: 09/14/17 18:09 Dose: 0.2 mg Clopidogrel Bisulfate (Plavix -) 75 mg PO DAILY [facility] Last Admin: 09/15/17 09:05 Dose: 75 mg Cyanocobalamin (Vitamin B12 -) 1,000 mcg PO DAILY [facility] Last Admin: 09/15/17 09:04 Dose: 1,000 mcg Donepezil HCl (Aricept -) 5 mg PO BID [facility] Last Admin: 09/15/17 09:04 Dose: 5 mg Ferrous Sulfate (Feosol -) 325 mg PO BIDWM [facility] Last Admin: 09/15/17 09:04 Dose: 325 mg Fluticasone Propionate (Flonase -) 2 spray NS DAILY [facility] Last Admin: 09/15/17 09:07 Dose: 2 sprays Folic Acid (Folic Acid -) 1 mg PO DAILY [facility] Last Admin: 09/15/17 09:04 Dose: 1 mg Hydralazine HCl (Apresoline -) 50 mg PO TID [facility] Last Admin: 09/15/17 06:03 Dose: 50 mg Labetalol HCl (Normodyne -) 400 mg PO TID [facility] Last Admin: 09/15/17 06:03 Dose: 400 mg Multivit/Ca Carb/B Cmplx/FA/Prenat (Nephro-Don -) 1 tablet PO DAILY [facility] Last Admin: 09/15/17 09:04 Dose: 1 tablet Ondansetron HCl (Zofran Injection) 4 mg IVPUSH Q6H PRN PRN Reason: NAUSEA Sitagliptin Phosphate (Januvia -) 25 mg PO DAILY@0700 [facility] Last Admin: 09/15/17 06:06 Dose: Not Given - Objective Vital Signs: Vital Signs Temperature 36.9 C 09/15/17 09:00 Pulse Rate 90 09/15/17 09:00 Respiratory Rate 18 09/15/17 09:00 Blood Pressure 109/60 09/15/17 09:00 O2 Sat by Pulse Oximetry (%) 97 09/15/17 09:00 Constitutional: Yes: Well Nourished, No Distress, Calm Cardiovascular: Yes: Regular Rate and Rhythm. No: Gallop, Murmur, Rub Respiratory: Yes: Regular, CTA Bilaterally. No: Rales, Rhonchi, Wheezes Gastrointestinal: Yes: Normal Bowel Sounds, Soft. No: Distention, Tenderness Extremities: Yes: WNL Edema: No Labs: CBC, BMP 09/14/17 10:30 09/14/17 10:30 INR, PTT INR 0.89 (0.82-1.09) 09/07/17 07:58 Problem List - Problems (1) ESRD (end stage renal disease) Code(s): N18.6 - END STAGE RENAL DISEASE (2) Metabolic encephalopathy Code(s): G93.41 - METABOLIC ENCEPHALOPATHY (3) HTN (hypertension) Code(s): I10 - ESSENTIAL (PRIMARY) HYPERTENSION (4) Diabetes Code(s): E11.9 - TYPE 2 DIABETES MELLITUS WITHOUT COMPLICATIONS (5) History of CVA (cerebrovascular accident) Code(s): Z86.73 - PRSNL HX OF TIA (TIA), AND CEREB INFRC W/O RESID DEFICITS (6) CAD (coronary artery disease) Code(s): I25.10 - ATHSCL HEART DISEASE OF [place] CORONARY ARTERY W/O ANG PCTRS (7) Anemia Code(s): D64.9 - ANEMIA, UNSPECIFIED Qualifiers: Anemia type: due to chronic kidney disease Chronic kidney disease stage: on chronic dialysis Qualified Code(s): N18.6 - End stage renal disease; D63.1 - Anemia in chronic kidney disease; D63.1 - Anemia in chronic kidney disease; Z99.2 - Dependence on renal dialysis; Z99.2 - Dependence on renal dialysis; Z99.2 - Dependence on renal dialysis; Z99.2 - Dependence on renal dialysis (8) History of endocarditis Code(s): Z86.79 - PERSONAL HISTORY OF OTHER DISEASES OF THE CIRCULATORY SYSTEM Assessment/Plan (1) ESRD (end stage renal disease) Assessment/Plan: -HD yesterday -establishing outpatient HD -per CM, will be established on Monday -can be discharged after HD on Monday Code(s): N18.6 - END STAGE RENAL DISEASE (2) Metabolic encephalopathy Assessment/Plan: -continue HD Code(s): G93.41 - METABOLIC ENCEPHALOPATHY (3) HTN (hypertension) Assessment/Plan: -continue hydralazine, clonidine patch, labetolol, and norvasc Code(s): I10 - ESSENTIAL (PRIMARY) HYPERTENSION (4) Diabetes Assessment/Plan: -diabetic diet -continue januvia, renally dosed Code(s): E11.9 - TYPE 2 DIABETES MELLITUS WITHOUT COMPLICATIONS (5) History of CVA (cerebrovascular accident) Assessment/Plan: -continue plavix Code(s): Z86.73 - PRSNL HX OF TIA (TIA), AND CEREB INFRC W/O RESID DEFICITS (6) CAD (coronary artery disease) Assessment/Plan: -quiescent -continue home regimen Code(s): I25.10 - ATHSCL HEART DISEASE OF [place] CORONARY ARTERY W/O ANG PCTRS (7) Anemia Assessment/Plan: -monitor -no need for transfusion -continue iron Code(s): D64.9 - ANEMIA, UNSPECIFIED Qualifiers: Anemia type: due to chronic kidney disease Chronic kidney disease stage: on chronic dialysis Qualified Code(s): N18.6 - End stage renal disease; D63.1 - Anemia in chronic kidney disease; D63.1 - Anemia in chronic kidney disease; Z99.2 - Dependence on renal dialysis; Z99.2 - Dependence on renal dialysis; Z99.2 - Dependence on renal dialysis; Z99.2 - Dependence on renal dialysis (8) History of endocarditis Assessment/Plan: -blood cultures NGTD Code(s): Z86.79 - PERSONAL HISTORY OF OTHER DISEASES OF THE CIRCULATORY SYSTEM Dispo -plan for discharge back to [facility] tomorrow after HD
[2017-09-15] MEDS ORDERED: SODIUM CHLORIDE 250 ML IV PRN (16:33)
--- NOTE | 2017-09-15 16:33 | PN ---
Progress Note, Physician History of Present Illness: Pt seen and examined at bedside. She is awake and appears comfortable. - Current Medication List Current Medications: Active Medications Acetaminophen (Tylenol -) 650 mg PO Q4H PRN PRN Reason: PAIN LEVEL 1-5 Amlodipine Besylate (Norvasc -) 10 mg PO DAILY [facility] Last Admin: 09/15/17 09:04 Dose: 10 mg Ascorbic Acid (Vitamin C -) 500 mg PO BID [facility] Last Admin: 09/15/17 09:04 Dose: 500 mg Atorvastatin Calcium (Lipitor -) 20 mg PO HS [facility] Last Admin: 09/14/17 21:47 Dose: 20 mg Clonidine HCl (Catapres Tts Patch -) 0.2 mg TD Q7D@1000 [facility] Last Admin: 09/14/17 18:09 Dose: 0.2 mg Clopidogrel Bisulfate (Plavix -) 75 mg PO DAILY [facility] Last Admin: 09/15/17 09:05 Dose: 75 mg Cyanocobalamin (Vitamin B12 -) 1,000 mcg PO DAILY [facility] Last Admin: 09/15/17 09:04 Dose: 1,000 mcg Donepezil HCl (Aricept -) 5 mg PO BID [facility] Last Admin: 09/15/17 09:04 Dose: 5 mg Ferrous Sulfate (Feosol -) 325 mg PO BIDWM [facility] Last Admin: 09/15/17 09:04 Dose: 325 mg Fluticasone Propionate (Flonase -) 2 spray NS DAILY [facility] Last Admin: 09/15/17 09:07 Dose: 2 sprays Folic Acid (Folic Acid -) 1 mg PO DAILY [facility] Last Admin: 09/15/17 09:04 Dose: 1 mg Hydralazine HCl (Apresoline -) 50 mg PO TID [facility] Last Admin: 09/15/17 16:03 Dose: 50 mg Labetalol HCl (Normodyne -) 400 mg PO TID [facility] Last Admin: 09/15/17 16:03 Dose: 400 mg Multivit/Ca Carb/B Cmplx/FA/Prenat (Nephro-Don -) 1 tablet PO DAILY [facility] Last Admin: 09/15/17 09:04 Dose: 1 tablet Ondansetron HCl (Zofran Injection) 4 mg IVPUSH Q6H PRN PRN Reason: NAUSEA Sitagliptin Phosphate (Januvia -) 25 mg PO DAILY@0700 [facility] Last Admin: 09/15/17 06:06 Dose: Not Given - Objective Vital Signs: Vital Signs Temperature 98.4 F 09/15/17 14:41 Pulse Rate 91 H 09/15/17 14:41 Respiratory Rate 20 09/15/17 14:41 Blood Pressure 128/59 09/15/17 14:41 O2 Sat by Pulse Oximetry (%) 97 09/15/17 09:00 Constitutional: Yes: Calm Eyes: Yes: Conjunctiva Clear HENT: Yes: Atraumatic Neck: Yes: Supple Cardiovascular: Yes: S1, S2 Respiratory: Yes: CTA Bilaterally Gastrointestinal: Yes: Normal Bowel Sounds, Soft Genitourinary: Yes: Incontinence Musculoskeletal: Yes: Muscle Weakness Neurological: Yes: Confusion Labs: CBC, BMP 09/14/17 10:30 09/14/17 10:30 INR, PTT INR 0.89 (0.82-1.09) 09/07/17 07:58 Problem List - Problems (1) Chronic kidney failure Code(s): N18.9 - CHRONIC KIDNEY DISEASE, UNSPECIFIED Qualifiers: Chronic kidney disease stage: unspecified stage Qualified Code(s): N18.9 - Chronic kidney disease, unspecified (2) Uremia Code(s): N19 - UNSPECIFIED KIDNEY FAILURE Assessment/Plan Current Medications Generic Name Dose Route Start Last Admin Trade Name Patricia PRN Reason Stop Dose Admin Acetaminophen 650 mg 09/07/17 19:00 Tylenol - PO Q4H PRN PAIN LEVEL 1-5 Amlodipine Besylate 10 mg 09/08/17 10:00 09/15/17 09:04 Norvasc - PO 10 mg DAILY [facility] Administration Ascorbic Acid 500 mg 09/07/17 22:00 09/15/17 09:04 Vitamin C - PO 500 mg BID RY Administration Atorvastatin Calcium 20 mg 09/07/17 22:00 09/14/17 21:47 Lipitor - PO 20 mg HS RY Administration Clonidine HCl 0.2 mg 09/14/17 10:00 09/14/17 18:09 Catapres Tts Patch - TD 0.2 mg Q7D@1000 [facility] Administration Clopidogrel Bisulfate 75 mg 09/08/17 10:00 09/15/17 09:05 Plavix - PO 75 mg DAILY [facility]Y Administration Cyanocobalamin 1,000 mcg 09/08/17 10:00 09/15/17 09:04 Vitamin B12 - PO 1,000 mcg DAILY RY Administration Donepezil HCl 5 mg 09/07/17 22:00 09/15/17 09:04 Aricept - PO 5 mg BID RY Administration Ferrous Sulfate 325 mg 09/08/17 08:00 09/15/17 09:04 Feosol - PO 325 mg BIDWM RY Administration Fluticasone Propionate 2 spray 09/08/17 10:00 09/15/17 09:07 Flonase - NS 2 sprays DAILY [facility] Administration Folic Acid 1 mg 09/08/17 10:00 09/15/17 09:04 Folic Acid - PO 1 mg DAILY [facility] Administration Hydralazine HCl 50 mg 09/07/17 22:00 09/15/17 16:03 Apresoline - PO 50 mg TID RY Administration Labetalol HCl 400 mg 09/07/17 22:00 09/15/17 16:03 Normodyne - PO 400 mg TID RY Administration Multivit/Ca Carb/B Cmplx/FA/Prenat 1 tablet 09/08/17 10:00 09/15/17 09:04 Nephro-Don - PO 1 tablet DAILY [facility]Y Administration Ondansetron HCl 4 mg 09/07/17 19:00 Zofran Injection IVPUSH Q6H PRN NAUSEA Sitagliptin Phosphate 25 mg 09/08/17 07:00 09/15/17 06:06 Januvia - PO Not Given DAILY@0700 [facility] Impression 1. ESRD 2. uremia 3. anemia 4. HTN 5. HLD 6. DM 7. hx endocarditis 8. GERD Plan - HD in am - still pending placement, spoke to case management today - vascular follow up as outpt - encourage PO intake - will follow Dr Barron
[2017-09-15] MEDS: ATORVASTATIN CA 20 MG TABLET (FP) PO SCH (22:32)
[2017-09-16] MEDS: LABETALOL HCL 200 MG TABLET (FP) PO SCH ×3 (07:30→21:31)
[2017-09-16] MEDS: hydrALAZINE HCL 50 MG TABLET (FP) PO SCH ×3 (07:30→21:32)
[2017-09-16] MEDS: sitaGLIPtin PHOSPHATE 25 MG TABLET (FP) PO SCH (07:30)
[2017-09-16 08:46] LABS: BASO % 0.7 % (0-2.0); EOS % 2.1 % (0-4.5); HEMATOCRIT 23.9 % (32.4-45.2); HEMOGLOBIN 7.9 GM/dL (10.7-15.3); LYMPH % 20.2 % (8-40); MCH 25.8 pg (25.7-33.7); MCHC 33.1 g/dl (32.0-36.0); MEAN CELL VOLUME 77.8 fl (80-96); MEAN PLT VOLUME 7.2 fl (7.5-11.1); MONO % 8.4 % (3.8-10.2); NEUT % 68.6 % (42.8-82.8); PLATELET COUNT 176 K/MM3 (134-434); RBC 3.07 M/mm3 (3.60-5.2); RDW 20.1 % (11.6-15.6); WHITE BLOOD COUNT 7.2 K/mm3 (4.0-10.0)
[2017-09-16] MEDS ORDERED: EPOETIN ALFA 3,000 UNIT/1 ML ML IVPUSH ONE (09:00)
[2017-09-16 09:11] LABS: CHLORIDE 108 mmol/L (98-107); POTASSIUM 3.8 mmol/L (3.5-5.1); SODIUM 144 mmol/L (136-145)
[2017-09-16 09:39] LABS: ANION GAP 10 (8-16); BLOOD UREA NITROGEN 24 mg/dL (7-18); CALCIUM 8.6 mg/dL (8.5-10.1); CO2 26 mmol/L (21-32); GLUCOSE,RANDOM 82 mg/dL (74-106); PHOSPHOROUS 2.6 mg/dL (2.5-4.9)
[2017-09-16 09:43] LABS: MAGNESIUM 1.6 mg/dL (1.8-2.4)
[2017-09-16] MEDS ORDERED: MAGNESIUM OXIDE 400 MG TABLET (FP) PO ONE (10:00)
[2017-09-16] MEDS: amLODIPine BESYLATE 10 MG TABLET (FP) PO SCH (11:26)
[2017-09-16] MEDS: FOLIC ACID 1 MG TABLET (FP) PO SCH (11:26)
[2017-09-16] MEDS: FERROUS SO4 325 MG TABLET (FP) PO SCH ×2 (11:26→19:46)
[2017-09-16] MEDS: ASCORBIC ACID 500 MG TABLET (FP) PO SCH ×2 (11:26→21:32)
[2017-09-16] MEDS: VITAMIN B COMP W-C 1 EA TABLET PO SCH (11:26)
[2017-09-16] MEDS: CLOPIDOGREL BISULFATE 75 MG TABLET (FP) PO SCH (11:26)
[2017-09-16] MEDS: DONEPEZIL HCL 5 MG TABLET (FP) PO SCH ×2 (11:26→21:32)
[2017-09-16] MEDS: CYANOCOBALAMIN 1,000 MCG TABLET (FP) PO SCH (11:26)
[2017-09-16] MEDS: FLUTICASONE PROP 0.05% 16 GM NASAL SPRAY NS SCH (11:27)
--- NOTE | 2017-09-16 16:51 | PN ---
Progress Note, Physician History of Present Illness: Pt seen and examined at bedside. She is awake and appears comfortable. She denies shortness of breath. She tolerated HD. - Current Medication List Current Medications: Active Medications Acetaminophen (Tylenol -) 650 mg PO Q4H PRN PRN Reason: PAIN LEVEL 1-5 Amlodipine Besylate (Norvasc -) 10 mg PO DAILY [facility] Last Admin: 09/16/17 11:26 Dose: 10 mg Ascorbic Acid (Vitamin C -) 500 mg PO BID [facility] Last Admin: 09/16/17 11:26 Dose: 500 mg Atorvastatin Calcium (Lipitor -) 20 mg PO HS [facility] Last Admin: 09/15/17 22:32 Dose: 20 mg Clonidine HCl (Catapres Tts Patch -) 0.2 mg TD Q7D@1000 [facility] Last Admin: 09/14/17 18:09 Dose: 0.2 mg Clopidogrel Bisulfate (Plavix -) 75 mg PO DAILY [facility] Last Admin: 09/16/17 11:26 Dose: 75 mg Cyanocobalamin (Vitamin B12 -) 1,000 mcg PO DAILY [facility] Last Admin: 09/16/17 11:26 Dose: 1,000 mcg Donepezil HCl (Aricept -) 5 mg PO BID [facility] Last Admin: 09/16/17 11:26 Dose: 5 mg Ferrous Sulfate (Feosol -) 325 mg PO BIDWM [facility] Last Admin: 09/16/17 11:26 Dose: 325 mg Fluticasone Propionate (Flonase -) 2 spray NS DAILY [facility] Last Admin: 09/16/17 11:27 Dose: Not Given Folic Acid (Folic Acid -) 1 mg PO DAILY [facility] Last Admin: 09/16/17 11:26 Dose: 1 mg Hydralazine HCl (Apresoline -) 50 mg PO TID [facility] Last Admin: 09/16/17 14:55 Dose: 50 mg Labetalol HCl (Normodyne -) 400 mg PO TID [facility] Last Admin: 09/16/17 14:55 Dose: 400 mg Multivit/Ca Carb/B Cmplx/FA/Prenat (Nephro-Don -) 1 tablet PO DAILY [facility] Last Admin: 09/16/17 11:26 Dose: 1 tablet Ondansetron HCl (Zofran Injection) 4 mg IVPUSH Q6H PRN PRN Reason: NAUSEA Sitagliptin Phosphate (Januvia -) 25 mg PO DAILY@0700 [facility] Last Admin: 09/16/17 07:30 Dose: Not Given - Objective Vital Signs: Vital Signs Temperature 98.2 F 09/16/17 16:10 Pulse Rate 96 H 09/16/17 16:10 Respiratory Rate 18 09/16/17 16:10 Blood Pressure 102/60 09/16/17 16:10 O2 Sat by Pulse Oximetry (%) 99 09/16/17 09:00 Constitutional: Yes: Calm Eyes: Yes: Conjunctiva Clear HENT: Yes: Atraumatic Neck: Yes: Supple Cardiovascular: Yes: S1, S2 Respiratory: Yes: CTA Bilaterally Gastrointestinal: Yes: Normal Bowel Sounds, Soft Genitourinary: Yes: WNL Edema: No Neurological: Yes: Confusion Labs: CBC, BMP 09/16/17 07:30 09/16/17 07:30 INR, PTT INR 0.89 (0.82-1.09) 09/07/17 07:58 Problem List - Problems (1) Chronic kidney failure Code(s): N18.9 - CHRONIC KIDNEY DISEASE, UNSPECIFIED Qualifiers: Chronic kidney disease stage: unspecified stage Qualified Code(s): N18.9 - Chronic kidney disease, unspecified (2) Uremia Code(s): N19 - UNSPECIFIED KIDNEY FAILURE Assessment/Plan Current Medications Generic Name Dose Route Start Last Admin Trade Name Freq PRN Reason Stop Dose Admin Acetaminophen 650 mg 09/07/17 19:00 Tylenol - PO Q4H PRN PAIN LEVEL 1-5 Amlodipine Besylate 10 mg 09/08/17 10:00 09/16/17 11:26 Norvasc - PO 10 mg DAILY [facility] Administration Ascorbic Acid 500 mg 09/07/17 22:00 09/16/17 11:26 Vitamin C - PO 500 mg BID RY Administration Atorvastatin Calcium 20 mg 09/07/17 22:00 09/15/17 22:32 Lipitor - PO 20 mg HS RY Administration Clonidine HCl 0.2 mg 09/14/17 10:00 09/14/17 18:09 Catapres Tts Patch - TD 0.2 mg Q7D@1000 [facility] Administration Clopidogrel Bisulfate 75 mg 09/08/17 10:00 09/16/17 11:26 Plavix - PO 75 mg DAILY [facility] Administration Cyanocobalamin 1,000 mcg 09/08/17 10:00 09/16/17 11:26 Vitamin B12 - PO 1,000 mcg DAILY [facility] Administration Donepezil HCl 5 mg 09/07/17 22:00 09/16/17 11:26 Aricept - PO 5 mg BID RY Administration Ferrous Sulfate 325 mg 09/08/17 08:00 09/16/17 11:26 Feosol - PO 325 mg BIDWM [facility]Y Administration Fluticasone Propionate 2 spray 09/08/17 10:00 09/16/17 11:27 Flonase - NS Not Given DAILY [facility] Folic Acid 1 mg 09/08/17 10:00 09/16/17 11:26 Folic Acid - PO 1 mg DAILY [facility] Administration Hydralazine HCl 50 mg 09/07/17 22:00 09/16/17 14:55 Apresoline - PO 50 mg TID RY Administration Labetalol HCl 400 mg 09/07/17 22:00 09/16/17 14:55 Normodyne - PO 400 mg TID [facility] Administration Multivit/Ca Carb/B Cmplx/FA/Prenat 1 tablet 09/08/17 10:00 09/16/17 11:26 Nephro-Don - PO 1 tablet DAILY [facility] Administration Ondansetron HCl 4 mg 09/07/17 19:00 Zofran Injection IVPUSH Q6H PRN NAUSEA Sitagliptin Phosphate 25 mg 09/08/17 07:00 09/16/17 07:30 Januvia - PO Not Given DAILY@0700 [facility] Impression 1. ESRD 2. uremia 3. anemia 4. HTN 5. HLD 6. DM 7. hx endocarditis 8. GERD Plan - HD tooday - cont iron - cont epogen - monitor hg - pending placement - case discussed with family - encourage PO intake - will follow Dr Barron
[2017-09-16] MEDS: ATORVASTATIN CA 20 MG TABLET (FP) PO SCH (21:32)
[2017-09-17] MEDS: hydrALAZINE HCL 50 MG TABLET (FP) PO SCH ×3 (06:32→23:04)
[2017-09-17] MEDS: LABETALOL HCL 200 MG TABLET (FP) PO SCH ×3 (06:32→23:05)
[2017-09-17] MEDS: sitaGLIPtin PHOSPHATE 25 MG TABLET (FP) PO SCH (06:32)
[2017-09-17] MEDS: FERROUS SO4 325 MG TABLET (FP) PO SCH ×2 (08:47→18:09)
[2017-09-17] MEDS: ASCORBIC ACID 500 MG TABLET (FP) PO SCH ×3 (12:05→23:04)
[2017-09-17] MEDS: CYANOCOBALAMIN 1,000 MCG TABLET (FP) PO SCH ×2 (12:05→12:25)
[2017-09-17] MEDS: DONEPEZIL HCL 5 MG TABLET (FP) PO SCH ×2 (12:06→23:04)
[2017-09-17] MEDS: FOLIC ACID 1 MG TABLET (FP) PO SCH (12:24)
[2017-09-17] MEDS: amLODIPine BESYLATE 10 MG TABLET (FP) PO SCH (12:25)
[2017-09-17] MEDS: CLOPIDOGREL BISULFATE 75 MG TABLET (FP) PO SCH (12:26)
[2017-09-17] MEDS: FLUTICASONE PROP 0.05% 16 GM NASAL SPRAY NS SCH (12:26)
[2017-09-17] MEDS: VITAMIN B COMP W-C 1 EA TABLET PO SCH (12:26)
--- NOTE | 2017-09-17 13:15 | PN ---
Progress Note, Physician Chief Complaint: patient is aphasic she has no complaints - Current Medication List Current Medications: Active Medications Acetaminophen (Tylenol -) 650 mg PO Q4H PRN PRN Reason: PAIN LEVEL 1-5 Amlodipine Besylate (Norvasc -) 10 mg PO DAILY [facility] Last Admin: 09/17/17 12:25 Dose: Not Given Ascorbic Acid (Vitamin C -) 500 mg PO BID [facility] Last Admin: 09/17/17 12:25 Dose: 500 mg Atorvastatin Calcium (Lipitor -) 20 mg PO HS [facility] Last Admin: 09/16/17 21:32 Dose: 20 mg Clonidine HCl (Catapres Tts Patch -) 0.2 mg TD Q7D@1000 [facility] Last Admin: 09/14/17 18:09 Dose: 0.2 mg Clopidogrel Bisulfate (Plavix -) 75 mg PO DAILY [facility] Last Admin: 09/17/17 12:26 Dose: 75 mg Cyanocobalamin (Vitamin B12 -) 1,000 mcg PO DAILY [facility] Last Admin: 09/17/17 12:25 Dose: 1,000 mcg Donepezil HCl (Aricept -) 5 mg PO BID [facility] Last Admin: 09/17/17 12:06 Dose: Not Given Ferrous Sulfate (Feosol -) 325 mg PO BIDWM [facility] Last Admin: 09/17/17 08:47 Dose: Not Given Fluticasone Propionate (Flonase -) 2 spray NS DAILY [facility] Last Admin: 09/17/17 12:26 Dose: Not Given Folic Acid (Folic Acid -) 1 mg PO DAILY [facility] Last Admin: 09/17/17 12:24 Dose: 1 mg Hydralazine HCl (Apresoline -) 50 mg PO TID [facility] Last Admin: 09/17/17 06:32 Dose: 50 mg Labetalol HCl (Normodyne -) 400 mg PO TID [facility] Last Admin: 09/17/17 06:32 Dose: 400 mg Multivit/Ca Carb/B Cmplx/FA/Prenat (Nephro-Don -) 1 tablet PO DAILY [facility] Last Admin: 09/17/17 12:26 Dose: 1 tablet Ondansetron HCl (Zofran Injection) 4 mg IVPUSH Q6H PRN PRN Reason: NAUSEA Sitagliptin Phosphate (Januvia -) 25 mg PO DAILY@0700 [facility] Last Admin: 09/17/17 06:32 Dose: 25 mg - Objective Vital Signs: Vital Signs Temperature 98.1 F 09/17/17 06:31 Pulse Rate 88 09/17/17 06:31 Respiratory Rate 18 09/17/17 06:31 Blood Pressure 101/51 09/17/17 12:21 O2 Sat by Pulse Oximetry (%) 100 09/16/17 21:37 Constitutional: Yes: Well Nourished, No Distress, Calm Eyes: Yes: WNL, Conjunctiva Clear HENT: Yes: WNL, Atraumatic, Normocephalic Neck: Yes: WNL, Supple, Trachea Midline Cardiovascular: Yes: WNL, Regular Rate and Rhythm Respiratory: Yes: WNL, Regular, CTA Bilaterally Gastrointestinal: Yes: WNL, Normal Bowel Sounds, Soft ...Rectal Exam: Yes: Deferred Edema: LLE: Trace, RLE: Trace Peripheral Pulses WNL: Yes Integumentary: Yes: WNL Neurological: Yes: Aphasia Labs: CBC, BMP 09/16/17 07:30 09/16/17 07:30 INR, PTT INR 0.89 (0.82-1.09) 09/07/17 07:58 Problem List - Problems (1) CAD (coronary artery disease) Assessment/Plan: -quiescent -continue home regimen Code(s): I25.10 - ATHSCL HEART DISEASE OF [place] CORONARY ARTERY W/O ANG PCTRS (2) Diabetes Assessment/Plan: diabetic diet -continue januvia, renally dosed Code(s): E11.9 - TYPE 2 DIABETES MELLITUS WITHOUT COMPLICATIONS (3) ESRD (end stage renal disease) Assessment/Plan: ESRD (end stage renal disease) Assessment/Plan: -c/w HD -establishing outpatient HD -per , will be established on Monday Code(s): N18.6 - END STAGE RENAL DISEASE (4) HTN (hypertension) Assessment/Plan: continue hydralazine, clonidine patch, labetolol, and norvasc Code(s): I10 - ESSENTIAL (PRIMARY) HYPERTENSION (5) History of CVA (cerebrovascular accident) Assessment/Plan: continue plavix Code(s): Z86.73 - PRSNL HX OF TIA (TIA), AND CEREB INFRC W/O RESID DEFICITS (6) History of endocarditis Assessment/Plan: stable no active issuesa Code(s): Z86.79 - PERSONAL HISTORY OF OTHER DISEASES OF THE CIRCULATORY SYSTEM (7) Metabolic encephalopathy Assessment/Plan: Metabolic encephalopathy resolvign -continue HD Code(s): G93.41 - METABOLIC ENCEPHALOPATHY (8) Anemia due to end stage renal disease Assessment/Plan: -monitor -no need for transfusion f/u with renal Code(s): N18.6 - END STAGE RENAL DISEASE; D63.1 - ANEMIA IN CHRONIC KIDNEY DISEASE
--- NOTE | 2017-09-17 16:59 | PN ---
Progress Note, Physician History of Present Illness: Pt seen and examined at bedside. She appears comfortable. She denies shortness of breath. - Current Medication List Current Medications: Active Medications Acetaminophen (Tylenol -) 650 mg PO Q4H PRN PRN Reason: PAIN LEVEL 1-5 Amlodipine Besylate (Norvasc -) 10 mg PO DAILY [facility] Last Admin: 09/17/17 12:25 Dose: Not Given Ascorbic Acid (Vitamin C -) 500 mg PO BID [facility] Last Admin: 09/17/17 12:25 Dose: 500 mg Atorvastatin Calcium (Lipitor -) 20 mg PO HS [facility] Last Admin: 09/16/17 21:32 Dose: 20 mg Clonidine HCl (Catapres Tts Patch -) 0.2 mg TD Q7D@1000 [facility] Last Admin: 09/14/17 18:09 Dose: 0.2 mg Clopidogrel Bisulfate (Plavix -) 75 mg PO DAILY [facility] Last Admin: 09/17/17 12:26 Dose: 75 mg Cyanocobalamin (Vitamin B12 -) 1,000 mcg PO DAILY [facility] Last Admin: 09/17/17 12:25 Dose: 1,000 mcg Donepezil HCl (Aricept -) 5 mg PO BID [facility] Last Admin: 09/17/17 12:06 Dose: Not Given Ferrous Sulfate (Feosol -) 325 mg PO BIDWM [facility] Last Admin: 09/17/17 08:47 Dose: Not Given Fluticasone Propionate (Flonase -) 2 spray NS DAILY [facility] Last Admin: 09/17/17 12:26 Dose: Not Given Folic Acid (Folic Acid -) 1 mg PO DAILY [facility] Last Admin: 09/17/17 12:24 Dose: 1 mg Hydralazine HCl (Apresoline -) 50 mg PO TID [facility] Last Admin: 09/17/17 13:45 Dose: Not Given Labetalol HCl (Normodyne -) 400 mg PO TID [facility] Last Admin: 09/17/17 13:46 Dose: Not Given Multivit/Ca Carb/B Cmplx/FA/Prenat (Nephro-Don -) 1 tablet PO DAILY [facility] Last Admin: 09/17/17 12:26 Dose: 1 tablet Ondansetron HCl (Zofran Injection) 4 mg IVPUSH Q6H PRN PRN Reason: NAUSEA Sitagliptin Phosphate (Januvia -) 25 mg PO DAILY@0700 [facility] Last Admin: 09/17/17 06:32 Dose: 25 mg - Objective Vital Signs: Vital Signs Temperature 98.1 F 09/17/17 06:31 Pulse Rate 88 09/17/17 06:31 Respiratory Rate 18 09/17/17 09:00 Blood Pressure 101/51 09/17/17 12:21 O2 Sat by Pulse Oximetry (%) 100 09/17/17 09:00 Constitutional: Yes: Calm Eyes: Yes: Conjunctiva Clear HENT: Yes: Atraumatic Neck: Yes: Supple Cardiovascular: Yes: S1, S2 Respiratory: Yes: CTA Bilaterally Gastrointestinal: Yes: Soft Genitourinary: Yes: Incontinence Edema: No Neurological: Yes: Confusion Labs: CBC, BMP 09/16/17 07:30 09/16/17 07:30 INR, PTT INR 0.89 (0.82-1.09) 09/07/17 07:58 Problem List - Problems (1) Chronic kidney failure Code(s): N18.9 - CHRONIC KIDNEY DISEASE, UNSPECIFIED Qualifiers: Chronic kidney disease stage: unspecified stage Qualified Code(s): N18.9 - Chronic kidney disease, unspecified (2) Uremia Code(s): N19 - UNSPECIFIED KIDNEY FAILURE Assessment/Plan Current Medications Generic Name Dose Route Start Last Admin Trade Name Patricia PRN Reason Stop Dose Admin Acetaminophen 650 mg 09/07/17 19:00 Tylenol - PO Q4H PRN PAIN LEVEL 1-5 Amlodipine Besylate 10 mg 09/08/17 10:00 09/17/17 12:25 Norvasc - PO Not Given DAILY [facility] Ascorbic Acid 500 mg 09/07/17 22:00 09/17/17 12:25 Vitamin C - PO 500 mg BID [facility] Administration Atorvastatin Calcium 20 mg 09/07/17 22:00 09/16/17 21:32 Lipitor - PO 20 mg HS [facility] Administration Clonidine HCl 0.2 mg 09/14/17 10:00 09/14/17 18:09 Catapres Tts Patch - TD 0.2 mg Q7D@1000 [facility] Administration Clopidogrel Bisulfate 75 mg 09/08/17 10:00 09/17/17 12:26 Plavix - PO 75 mg DAILY [facility] Administration Cyanocobalamin 1,000 mcg 09/08/17 10:00 09/17/17 12:25 Vitamin B12 - PO 1,000 mcg DAILY [facility] Administration Donepezil HCl 5 mg 09/07/17 22:00 09/17/17 12:06 Aricept - PO Not Given BID [facility] Ferrous Sulfate 325 mg 09/08/17 08:00 09/17/17 08:47 Feosol - PO Not Given BIDWM [facility] Fluticasone Propionate 2 spray 09/08/17 10:00 09/17/17 12:26 Flonase - NS Not Given DAILY [facility] Folic Acid 1 mg 09/08/17 10:00 09/17/17 12:24 Folic Acid - PO 1 mg DAILY [facility] Administration Hydralazine HCl 50 mg 09/07/17 22:00 09/17/17 13:45 Apresoline - PO Not Given TID [facility] Labetalol HCl 400 mg 09/07/17 22:00 09/17/17 13:46 Normodyne - PO Not Given TID [facility] Multivit/Ca Carb/B Cmplx/FA/Prenat 1 tablet 09/08/17 10:00 09/17/17 12:26 Nephro-Don - PO 1 tablet DAILY [facility] Administration Ondansetron HCl 4 mg 09/07/17 19:00 Zofran Injection IVPUSH Q6H PRN NAUSEA Sitagliptin Phosphate 25 mg 09/08/17 07:00 09/17/17 06:32 Januvia - PO 25 mg DAILY@0700 [facility] Administration Impression 1. ESRD 2. uremia 3. anemia 4. HTN 5. HLD 6. DM 7. hx endocarditis 8. GERD Plan - pt tolerated HD yesterday - next session on Monday - pending outpt placement - cont iron supplements - epogen for anemia - encourage PO intake - will follow Dr Barron
[2017-09-17] MEDS: ATORVASTATIN CA 20 MG TABLET (FP) PO SCH (23:03)
[2017-09-18] MEDS: LABETALOL HCL 200 MG TABLET (FP) PO SCH ×2 (06:00→14:43)
[2017-09-18] MEDS: sitaGLIPtin PHOSPHATE 25 MG TABLET (FP) PO SCH (06:32)
[2017-09-18] MEDS: hydrALAZINE HCL 50 MG TABLET (FP) PO SCH ×2 (06:32→14:43)
[2017-09-18 08:17] LABS: BASO % 0.8 % (0-2.0); EOS % 2.6 % (0-4.5); HEMATOCRIT 26.2 % (32.4-45.2); HEMOGLOBIN 8.5 GM/dL (10.7-15.3); LYMPH % 24.6 % (8-40); MCH 25.6 pg (25.7-33.7); MCHC 32.5 g/dl (32.0-36.0); MEAN CELL VOLUME 78.7 fl (80-96); MONO % 10.6 % (3.8-10.2); NEUT % 61.4 % (42.8-82.8); PLATELET COUNT 196 K/MM3 (134-434); RBC 3.33 M/mm3 (3.60-5.2); RDW 20.6 % (11.6-15.6); WHITE BLOOD COUNT 5.5 K/mm3 (4.0-10.0)
[2017-09-18 08:24] LABS: CHLORIDE 107 mmol/L (98-107); POTASSIUM 4.1 mmol/L (3.5-5.1); SODIUM 141 mmol/L (136-145)
[2017-09-18] MEDS: FERROUS SO4 325 MG TABLET (FP) PO SCH ×2 (08:45→17:30)
[2017-09-18] MEDS: ASCORBIC ACID 500 MG TABLET (FP) PO SCH (09:03)
[2017-09-18] MEDS: CYANOCOBALAMIN 1,000 MCG TABLET (FP) PO SCH (09:03)
[2017-09-18] MEDS: DONEPEZIL HCL 5 MG TABLET (FP) PO SCH (09:03)
[2017-09-18] MEDS: CLOPIDOGREL BISULFATE 75 MG TABLET (FP) PO SCH (09:03)
[2017-09-18] MEDS: VITAMIN B COMP W-C 1 EA TABLET PO SCH (09:03)
[2017-09-18] MEDS: FOLIC ACID 1 MG TABLET (FP) PO SCH (09:03)
[2017-09-18] MEDS: amLODIPine BESYLATE 10 MG TABLET (FP) PO SCH (09:03)
[2017-09-18 09:09] LABS: ALBUMIN 2.6 g/dl (3.4-5.0); ALK PHOS 92 U/L (45-117); ANION GAP 5 (8-16); BILIRUBIN,TOTAL 0.5 mg/dL (0.2-1.0); BLOOD UREA NITROGEN 22 mg/dL (7-18); CALCIUM 8.7 mg/dL (8.5-10.1); CO2 29 mmol/L (21-32); CREATININE 4.9 mg/dL (0.55-1.02); GLUCOSE,RANDOM 100 mg/dL (74-106); SGOT/AST 27 U/L (15-37); SGPT/ALT 35 U/L (12-78); TOT PROT 5.5 g/dl (6.4-8.2)
[2017-09-18] MEDS: FLUTICASONE PROP 0.05% 16 GM NASAL SPRAY NS SCH (09:11)
--- NOTE | 2017-09-18 14:10 | DS ---
Physical Examination Vital Signs: Vital Signs Temperature 36.7 C 09/18/17 09:19 Pulse Rate 89 09/18/17 09:19 Respiratory Rate 20 09/18/17 09:19 Blood Pressure 118/63 09/18/17 09:19 O2 Sat by Pulse Oximetry (%) 98 09/18/17 09:00 Constitutional: Yes: No Distress, Calm, Thin Cardiovascular: Yes: Regular Rate and Rhythm. No: Gallop, Murmur, Rub Respiratory: Yes: Regular, CTA Bilaterally. No: Rales, Rhonchi, Wheezes Gastrointestinal: Yes: Normal Bowel Sounds, Soft. No: Distention, Tenderness Extremities: Yes: WNL Edema: No Labs: CBC, BMP 09/18/17 06:30 09/18/17 06:30 Discharge Summary Reason For Visit: UREMIA,CHRONIC RENAL FAILURE Current Active Problems Anemia (Acute) Anemia due to end stage renal disease (Acute) CAD (coronary artery disease) (Acute) Chronic kidney failure (Acute) Diabetes (Acute) ESRD (end stage renal disease) (Acute) HTN (hypertension) (Acute) History of CVA (cerebrovascular accident) (Acute) History of endocarditis (Acute) Metabolic encephalopathy (Acute) Uremia (Acute) Hospital Course: (1) ESRD (end stage renal disease) Code(s): N18.6 - END STAGE RENAL DISEASE (2) Metabolic encephalopathy Code(s): G93.41 - METABOLIC ENCEPHALOPATHY (3) HTN (hypertension) Code(s): I10 - ESSENTIAL (PRIMARY) HYPERTENSION (4) Diabetes Code(s): E11.9 - TYPE 2 DIABETES MELLITUS WITHOUT COMPLICATIONS (5) History of CVA (cerebrovascular accident) Code(s): Z86.73 - PRSNL HX OF TIA (TIA), AND CEREB INFRC W/O RESID DEFICITS (6) CAD (coronary artery disease) Code(s): I25.10 - ATHSCL HEART DISEASE OF [place] CORONARY ARTERY W/O ANG PCTRS (7) Anemia Code(s): D64.9 - ANEMIA, UNSPECIFIED Qualifiers: Anemia type: due to chronic kidney disease Chronic kidney disease stage: on chronic dialysis Qualified Code(s): N18.6 - End stage renal disease; D63.1 - Anemia in chronic kidney disease; D63.1 - Anemia in chronic kidney disease; Z99.2 - Dependence on renal dialysis; Z99.2 - Dependence on renal dialysis; Z99.2 - Dependence on renal dialysis; Z99.2 - Dependence on renal dialysis (8) History of endocarditis Code(s): Z86.79 - PERSONAL HISTORY OF OTHER DISEASES OF THE CIRCULATORY SYSTEM Ms Medina Monday is a 67 year old female who comes in with ESRD requiring HD. She was admitted to the hospital and seen by vascular surgery and nephrology. An HD catheter was placed and she was started on HD. She tolerated this well. She was kept here until her HD was established as an outpatient which has been set up. She was continued on her home regimen without difficulty. Case d/w Dr Barron who will discuss with Corona the instructions for HD. She is currently safe for discharge to SNF. 32 minutes spent in preparation of this discharge Condition: Stable - Instructions Diet, Activity, Other Instructions: Please return to the ED for any new, persistent, or worsening symptoms. Followup with your PCP in 1 week Continue meds as directed on home medication list Resume HD Monday Referrals: ON STAFF,NOT [Primary Care Provider] - Santa Barron MD [Staff Physician] - Buck Crane MD [Staff Physician] - (Call office to schedule ultrasound for vein mapping.) Disposition: [facility]ION FACILITY - Home Medications Comprehensive Discharge Medication List: Ambulatory Orders Acetaminophen 650 mg PO Q6H PRN 09/07/17 Amlodipine Besylate 10 mg PO DAILY 09/07/17 Ascorbic Acid [Vitamin C -] 500 mg PO BID 09/07/17 Atorvastatin Ca [Lipitor] 20 mg PO HS 09/07/17 Clonidine Patch [Catapres Tts Patch -] 1 patch TD WEEKLY 09/07/17 Clopidogrel Bisulfate [Plavix] 75 mg PO DAILY 09/07/17 Collagenase Clostridium Hist. [Santyl -] 1 applic TP DAILY 09/07/17 Cyanocobalamin (Vitamin B-12) [Vitamin B-12] 1,000 mcg PO DAILY 09/07/17 Darbepoetin Sonny in [place] [Aranesp] 200 mcg SQ WEEKLY 09/07/17 Docusate Sodium [Colace] 200 mg PO HS 09/07/17 Donepezil HCl [Aricept] 5 mg PO BID 09/07/17 Famotidine 20 mg PO HS 09/07/17 Ferrous Sulfate 325 mg PO BID 09/07/17 Flonase Allergy Relief 2 sprays IH DAILY 09/07/17 Folic Acid 1 mg PO DAILY 09/07/17 Hydralazine HCl 50 mg PO TID 09/07/17 Insulin (Novolog) [Novolog Flexpen -] See Protocol 09/07/17 Menthol/Zinc Oxide [Calmoseptine Ointment] 1 applic TP BID 09/07/17 Sodium Chloride [Saline Mist] 1 spray NS TID 09/07/17 Vitamin B Comp W-C [Nephro-Don -] 0.8 mg PO DAILY 09/07/17 Labetalol HCl [Normodyne -] 400 mg PO TID tablet 09/16/17 Ondansetron Injection [Zofran Injection] 4 mg IVPUSH Q6H PRN vial 09/16/17 Sitagliptin Phosphate [Januvia -] 25 mg PO DAILY@0700 tab 09/16/17 Vitamin B Comp W-C [Nephro-Don -] 1 tablet PO DAILY tablet 09/16/17
--- NOTE | 2017-09-18 15:01 | CONSULT ---
Admitting History and Physical - Primary Care Physician PCP: Mathieu Keyes - Admission History of Present Illness: History of Present Illness: Ms Medina Monday is a 67 year old female who was sent in from [facility] for HD. Daughter at bedside and giving history. She states that in her normal state of health, Ms Medina Monday is able to converse and have appropriate conversations. Over the past two weeks has become less verbal and lethargic. Was being followed as an outpatient as has history of stage5 CKD, family at that time was holding off of HD. However patient non-verbal and was found to have a BUN in the 100s and was sent in for HD. Per RD 09/18/17: Severe malnutrition in context of chronic disease r/t CKD, as evidenced by possible 22 % weight loss x 1.5 years, reported poor PO at SNF, temporal muscle wasting noted, protruding acroniom bone region Likely chewing/ ? swallowing difficulty r/t ? altered mental status, ? weakness, hx of CVA as evidenced by difficulty tolerating regular texture, nectar thick liquid in SNF Inadequate energy intake r/t weakness, poor acceptance to PO from staff as evidenced by taking upto 50 % meals x 11 days, 4 lbs weight loss Recommendations: - continue Dysphagia Puree/Healy thick liquids, Renal diet - rec swallowing eval for right texture/liquids - continue Ensure pudding and increase Magic cup to BID - rec adding Prosource BID 30 ml (60 kcal/15 gm Prot each) - recommend daily or at least weekly weights - consider PEG r/t poor PO acceptance,not meeting nutritional needs - ? Remeron for appetite Pending d/c today. Pt was on a soft to chew diet and nectar thick liquids at [facility]. Pt has been on a pureed diet and nectar thick liquids at [facility]. Selected Entries 09/17/17 09/17/17 09/17/17 06:31 11:42 15:01 Breakfast 50% Lunch 25% Supper Temperature 98.1 F 09/17/17 09/17/17 09/18/17 18:51 23:06 06:22 Breakfast Lunch Supper 25% Temperature 98.1 F 98.2 F 97.9 F 09/18/17 09/18/17 09/18/17 09:19 10:50 14:37 Breakfast 50% Lunch Supper Temperature 98.0 F 98.2 F Laboratory Tests 09/14/17 09/16/17 09/18/17 10:30 07:30 06:30 WBC 7.1 7.2 5.5 This is my first consult with this pt. 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 Cardiovascular: Yes: CAD, HTN, Other (endocarditis) Gastrointestinal: Yes: GERD Renal/: Yes: Renal Failure Heme/Onc: Yes: Anemia Infectious Disease: Yes: Other (uti) Endocrine: Yes: Diabetes Mellitus - Past Surgical History Past Surgical History: Yes: Joint Replacement - Smoking History Smoking history: Former smoker Have you smoked in the past 12 months: No If you are a former smoker, when did you quit?: 6 YRS AGO - Alcohol/Substance Use Hx Alcohol Use: No History of Substance Use: reports: None - Social History ADL: Support Services History of Recent Travel: No History - Admission Reason For Visit: UREMIA,CHRONIC RENAL FAILURE - Diagnostics X-ray: Report Reviewed CT Scan: Report Reviewed - General Mental Status: Awake and Alert, Able to Follow Commands, Intermittently Confused ("sprain brook" "56 yo") Attention: Intact Ability to Follow Directions: Fair Head/Neck Control: Fair - Hearing Hearing: Normal Speech Evaluation - Communication Primary Language: ROMANSH Communication: Yes: Simple Responses (slow to respond. Flat affect.) - Speech Production Able to Make Needs Known: Yes: WNL Intelligibility: Yes: Mildly Impaired - Speech Characteristics Voice Loudness: Mildly Soft/Quiet Voice Pitch: Yes: Normal Voice Phonatory-based Quality: Yes: Hoarse (with effort), Breathy, Dysphonia Nasal Resonance: Normal Articulation: Yes: Precise Rate of Speech: Too Slow Voice, Other Observations: Yes: Progressively Weak Voice, Inadequate Breath Support - Language/Auditory Comprehension Follows: Yes: 1 Stage Simple Commands - Swallow Evaluation/Bedside Assessment Current Nutritional Intake: Dysphagia Pureed, Healy Textured Liquids Oral Secretions: Yes: WFL Dentition: Yes: Missing Teeth Facial Symmetry at Rest: Symmetrical Facial Symmetry on Retraction: Symmetrical Against Resistance Opening: Weak Against Resistance Closing: Weak Pucker Lips: Weak Smile: Weak Lingual Movement: Symmetric, Reduced Protrusion Lingual Movement Strgth Against Opposition: Reduced Laryngeal Movement: Labored,delay initiation Rate of Intake: Slow/Holding Bolus Size: Small Labial Seal: WFL Oral Prep Time: Increased Timing of Swallow: Delayed Coughing/Throat Clear: Yes (throat clearing with thin liquid trials) Recommendations - Speech Evaluation, Impression/Plan Impression: Dysphonia.Suspect vocal cord dysfunction vs reduced pulm function/ effort. Throat clearing with thin liquid. Aspiration on thin? Refused trial of solids, for possible upgrade - Disposition Discharge to: [facility] Facility - Dysphagia Impressions/Plan Swallowing Skills: Impaired Dysphagia Impressions: Mild Impairment, Moderate Impairment *Silent aspiration: cannot be R/O at bedside Dysphagia Treatment Plan: Small Bites, Chin Tuck/Down, Safe Rate, 1/2 tsp. at a time, Elevate HOB during feed, Other (remind pt to swallow) Recommendations: Modified Barium Swallow (as out pt to r/o aspiration/upgrade diet) - Recommendations Diet Consistency: Dysphagia Pureed Medication Administration: Crushed with applesauce Liquids: Healy Thick Supplement: Magic Cup, Ensure Pudding, Other (Ensure compact)
--- NOTE | 2017-09-18 15:37 | PN ---
Progress Note, Physician History of Present Illness: Pt seen and examined at bedside. She is awake and appears comfortable. She is going to be discharged today. - Current Medication List Current Medications: Active Medications Acetaminophen (Tylenol -) 650 mg PO Q4H PRN PRN Reason: PAIN LEVEL 1-5 Amlodipine Besylate (Norvasc -) 10 mg PO DAILY [facility] Last Admin: 09/18/17 09:03 Dose: 10 mg Ascorbic Acid (Vitamin C -) 500 mg PO BID [facility] Last Admin: 09/18/17 09:03 Dose: 500 mg Atorvastatin Calcium (Lipitor -) 20 mg PO HS [facility] Last Admin: 09/17/17 23:03 Dose: 20 mg Clonidine HCl (Catapres Tts Patch -) 0.2 mg TD Q7D@1000 [facility] Last Admin: 09/14/17 18:09 Dose: 0.2 mg Clopidogrel Bisulfate (Plavix -) 75 mg PO DAILY [facility] Last Admin: 09/18/17 09:03 Dose: 75 mg Cyanocobalamin (Vitamin B12 -) 1,000 mcg PO DAILY [facility] Last Admin: 09/18/17 09:03 Dose: 1,000 mcg Donepezil HCl (Aricept -) 5 mg PO BID [facility] Last Admin: 09/18/17 09:03 Dose: 5 mg Ferrous Sulfate (Feosol -) 325 mg PO BIDWM [facility] Last Admin: 09/18/17 08:45 Dose: 325 mg Fluticasone Propionate (Flonase -) 2 spray NS DAILY [facility] Last Admin: 09/18/17 09:11 Dose: 2 sprays Folic Acid (Folic Acid -) 1 mg PO DAILY [facility] Last Admin: 09/18/17 09:03 Dose: 1 mg Hydralazine HCl (Apresoline -) 50 mg PO TID [facility] Last Admin: 09/18/17 14:43 Dose: Not Given Labetalol HCl (Normodyne -) 400 mg PO TID [facility] Last Admin: 09/18/17 14:43 Dose: Not Given Multivit/Ca Carb/B Cmplx/FA/Prenat (Nephro-Don -) 1 tablet PO DAILY [facility] Last Admin: 09/18/17 09:03 Dose: 1 tablet Ondansetron HCl (Zofran Injection) 4 mg IVPUSH Q6H PRN PRN Reason: NAUSEA Sitagliptin Phosphate (Januvia -) 25 mg PO DAILY@0700 [facility] Last Admin: 09/18/17 06:32 Dose: 25 mg - Objective Vital Signs: Vital Signs Temperature 98.2 F 09/18/17 14:37 Pulse Rate 99 H 09/18/17 14:37 Respiratory Rate 18 09/18/17 14:37 Blood Pressure 114/65 09/18/17 14:37 O2 Sat by Pulse Oximetry (%) 98 09/18/17 09:00 Constitutional: Yes: Calm Eyes: Yes: Conjunctiva Clear HENT: Yes: Atraumatic Neck: Yes: Supple Cardiovascular: Yes: S1, S2 Gastrointestinal: Yes: Normal Bowel Sounds Genitourinary: Yes: Incontinence Musculoskeletal: Yes: WNL Edema: No Neurological: Yes: Confusion Psychiatric: Yes: Oriented Labs: CBC, BMP 09/18/17 06:30 09/18/17 06:30 INR, PTT INR 0.89 (0.82-1.09) 09/07/17 07:58 Problem List - Problems (1) Chronic kidney failure Code(s): N18.9 - CHRONIC KIDNEY DISEASE, UNSPECIFIED Qualifiers: Chronic kidney disease stage: unspecified stage Qualified Code(s): N18.9 - Chronic kidney disease, unspecified (2) Uremia Code(s): N19 - UNSPECIFIED KIDNEY FAILURE Assessment/Plan Current Medications Generic Name Dose Route Start Last Admin Trade Name Freq PRN Reason Stop Dose Admin Acetaminophen 650 mg 09/07/17 19:00 Tylenol - PO Q4H PRN PAIN LEVEL 1-5 Amlodipine Besylate 10 mg 09/08/17 10:00 09/18/17 09:03 Norvasc - PO 10 mg DAILY RY Administration Ascorbic Acid 500 mg 09/07/17 22:00 09/18/17 09:03 Vitamin C - PO 500 mg BID RY Administration Atorvastatin Calcium 20 mg 09/07/17 22:00 09/17/17 23:03 Lipitor - PO 20 mg HS RY Administration Clonidine HCl 0.2 mg 09/14/17 10:00 09/14/17 18:09 Catapres Tts Patch - TD 0.2 mg Q7D@1000 R[facility] Administration Clopidogrel Bisulfate 75 mg 09/08/17 10:00 09/18/17 09:03 Plavix - PO 75 mg DAILY RY Administration Cyanocobalamin 1,000 mcg 09/08/17 10:00 04/02/18 09:03 Vitamin B12 - PO 1,000 mcg DAILY R[facility] Administration Donepezil HCl 5 mg 09/07/17 22:00 09/18/17 09:03 Aricept - PO 5 mg BID RY Administration Ferrous Sulfate 325 mg 09/08/17 08:00 09/18/17 08:45 Feosol - PO 325 mg BIDWM RY Administration Fluticasone Propionate 2 spray 09/08/17 10:00 09/18/17 09:11 Flonase - NS 2 sprays DAILY [facility] Administration Folic Acid 1 mg 09/08/17 10:00 09/18/17 09:03 Folic Acid - PO 1 mg DAILY R[facility] Administration Hydralazine HCl 50 mg 09/07/17 22:00 09/18/17 14:43 Apresoline - PO Not Given TID [facility] Labetalol HCl 400 mg 09/07/17 22:00 09/18/17 14:43 Normodyne - PO Not Given TID [facility] Multivit/Ca Carb/B Cmplx/FA/Prenat 1 tablet 09/08/17 10:00 09/18/17 09:03 Nephro-Don - PO 1 tablet DAILY [facility] Administration Ondansetron HCl 4 mg 09/07/17 19:00 Zofran Injection IVPUSH Q6H PRN NAUSEA Sitagliptin Phosphate 25 mg 09/08/17 07:00 09/18/17 06:32 Januvia - PO 25 mg DAILY@0700 [facility] Administration Impression 1. ESRD 2. uremia 3. anemia 4. HTN 5. HLD 6. DM 7. hx endocarditis 8. GERD Plan - HD tomorrow as outpt - pt is going to [facility] with on site HD - [facility] aware and in agreement - will need av fistula - cont iron supplements - epogen for anemia - encourage PO intake - discussed with medical team - will follow Dr Barron
[2017-09-18 17:52] VITALS: BP 116/65; PULSE 95; TEMP 98.7
== END 2017-09-18 19:42 | DRG 682 ==
LOC: JER 07:10 → JERBED 10:10 → J7W 13:24
PROVIDERS: ADMIT Internal Medicine; ATTEND Internal Medicine
PROC: B518ZZA Fluoroscopy of Superior Vena Cava, Guidance (ICD-10-PCS; 2017-09-07)
PROC: 02HV33Z Insertion of Infusion Device into Superior Vena Cava, Percutaneous Approach (ICD-10-PCS; principal; 2017-09-07 18:00)
PROC: 5A1D70Z Performance of Urinary Filtration, Intermittent, Less than 6 Hours Per Day (ICD-10-PCS; 2017-09-12)
PROC: 5A1D70Z Performance of Urinary Filtration, Intermittent, Less than 6 Hours Per Day (ICD-10-PCS; 2017-09-14)
PROC: 5A1D70Z Performance of Urinary Filtration, Intermittent, Less than 6 Hours Per Day (ICD-10-PCS; 2017-09-16)
DX: I12.0 Hypertensive chronic kidney disease with stage 5 chronic kidney disease or end stage renal disease (principal); N18.6 End stage renal disease; G93.41 Metabolic encephalopathy; G91.2 (Idiopathic) normal pressure hydrocephalus; E11.22 Type 2 diabetes mellitus with diabetic chronic kidney disease; I25.10 Atherosclerotic heart disease of native coronary artery without angina pectoris; K21.9 Gastro-esophageal reflux disease without esophagitis; F03.90 Unspecified dementia, unspecified severity, without behavioral disturbance, psychotic disturbance, mood disturbance, and anxiety; D63.1 Anemia in chronic kidney disease; Z87.891 Personal history of nicotine dependence; Z86.73 Personal history of transient ischemic attack (TIA), and cerebral infarction without residual deficits; Z86.79 Personal history of other diseases of the circulatory system; Z99.2 Dependence on renal dialysis
CPT/HCPCS: 11042; 36415; 36600; 70450-TC; 71045-TC-FY; 73630-TC-LT; 73630-TC-RT-FY; 76000-TC-FY; 80048; 80053; 82607; 82728; 82746; 82803; 82962; 83036; 83540; 83735; 84100; 84443; 85025; 85610; 85651; 86593; 86618; 86704; 86706; 86708; 86850; 86900; 86901; 87040; 87324; 87340; 87449; 93005; 93010; 94760; 97161-GP; 99284-25; J0885; J1644